=== PATIENT | female | born 1935 | race Caucasian/White ===

== ENCOUNTER → 2017-01-07 | Outpatient (CLI) | payer OTHER, BC ==
[2017-01-07 18:16] LABS: URINE APPEARANCE CLEAR (CLEAR); URINE BILIRUBIN NEG (NEG); URINE COLOR YELLOW; URINE EPITHELIAL CELL AUTO 0-5 /lpf (0-5); URINE NITRITE NEG (NEG); URINE PH 5.5 (4.5-7.5); URINE SPECIFIC GRAVITY 1.014 (1.000-1.030); UROBILINOGEN NEG (NEG)
[2017-01-07 18:18] LABS: MANUAL MICROSCOPIC REQUIRED? NO; REVIEW REQ? NO
== END | disposition home or self-care (01) ==
LOC: C.LABMFLN 16:20
PROVIDERS: ATTEND Family Medicine
DX: R30.0 Dysuria (principal)

== ENCOUNTER → 2017-07-11 | Outpatient (CLI) | payer OTHER, BC ==
[2017-07-11 17:58] LABS: HEMATOCRIT 32.1 % (37-47); HEMOGLOBIN 10.2 g/dL (12.0-16.0); MEAN CELL VOLUME 102.6 fL (80-100); MEAN CORPUSCULAR HEMOGLOBIN 32.6 pg (25-34); MEAN CORPUSCULAR HGB CONC 31.8 g/dl (32-36); MEAN PLATELET VOLUME 10.4 fL (7.4-10.4); PLATELET COUNT 211 K/uL (130-400); RED CELL DISTRIBUTION WIDTH CV 17.9 % (11.5-14.5); RED CELL DISTRIBUTION WIDTH SD 67.8 fL (36.4-46.3); WHITE BLOOD COUNT 4.52 K/uL (4.8-10.8)
[2017-07-11 18:25] LABS: ALBUMIN 3.6 gm/dl (3.4-5.0); ALT/SGPT 41 U/L (12-78); BLOOD UREA NITROGEN 54 mg/dl (7-18); CALCIUM 9.8 mg/dl (8.5-10.1); CARBON DIOXIDE 33 mmol/L (21-32); CHOLESTEROL 148 mg/dl (0-200); CREATININE 1.99 mg/dl (0.60-1.20); GLUCOSE 121 mg/dl (70-99); POTASSIUM 4.1 mmol/L (3.5-5.1); SODIUM 139 mmol/L (136-145)
[2017-07-11 18:34] LABS: ALKALINE PHOSPHATASE 213 U/L (45-117); AST/SGOT 54 U/L (15-37); LDL CHOLESTEROL (DIRECT) 70 mg/dl; TOTAL PROTEIN 8.3 gm/dl (6.4-8.2); TRANSFERRIN 269 mg/dl (200-360)
== END | disposition home or self-care (01) ==
LOC: C.LABMFLN 17:00
PROVIDERS: ATTEND Family Medicine
DX: E11.49 Type 2 diabetes mellitus with other diabetic neurological complication (principal); E11.65 Type 2 diabetes mellitus with hyperglycemia; E03.9 Hypothyroidism, unspecified; D64.9 Anemia, unspecified; F32.9 Major depressive disorder, single episode, unspecified; E78.00 Pure hypercholesterolemia, unspecified

== ENCOUNTER → 2017-07-19 | Outpatient (CLI) | payer OTHER, BC ==
[2017-07-21 18:29] LABS: FECAL OCCULT BLOOD #1 NEGATIVE (NEGATIVE); FECAL OCCULT BLOOD #2 NEGATIVE (NEGATIVE); FECAL OCCULT BLOOD #3 NEGATIVE (NEGATIVE)
== END | disposition home or self-care (01) ==
LOC: C.LABSPEC 18:20
PROVIDERS: ATTEND Family Medicine
DX: D64.9 Anemia, unspecified (principal)

== ENCOUNTER → 2017-08-01 | Outpatient (CLI) | payer OTHER, BC | END | disposition home or self-care (01) | LOC: C.LABMFLN 16:26 | PROVIDERS: ATTEND Family Medicine | DX: I12.9 Hypertensive chronic kidney disease with stage 1 through stage 4 chronic kidney disease, or unspecified chronic kidney disease (principal); N18.4 Chronic kidney disease, stage 4 (severe) ==

== ENCOUNTER → 2017-08-13 | Outpatient (CLI) | payer OTHER, BC | END | disposition home or self-care (01) | LOC: C.LABMFLN 18:17 | PROVIDERS: ATTEND Family Medicine | DX: N39.0 Urinary tract infection, site not specified (principal) ==

== ENCOUNTER → 2017-08-15 | Outpatient (CLI) | payer OTHER, BC | END | disposition home or self-care (01) | LOC: C.LABMFLN 10:42 | PROVIDERS: ATTEND Family Medicine | DX: N39.0 Urinary tract infection, site not specified (principal) ==

== ENCOUNTER → 2018-01-22 | Outpatient (CLI) | payer OTHER, BC ==
[2018-01-22 17:45] LABS: HEMATOCRIT 28.7 % (37-47); HEMOGLOBIN 8.8 g/dL (12.0-16.0); MEAN CELL VOLUME 103.6 fL (80-100); MEAN CORPUSCULAR HEMOGLOBIN 31.8 pg (25-34); MEAN CORPUSCULAR HGB CONC 30.7 g/dl (32-36); MEAN PLATELET VOLUME 10.4 fL (7.4-10.4); PLATELET COUNT 173 K/uL (130-400); RED CELL DISTRIBUTION WIDTH CV 17.9 % (11.5-14.5); RED CELL DISTRIBUTION WIDTH SD 68.1 fL (36.4-46.3); WHITE BLOOD COUNT 5.45 K/uL (4.8-10.8)
[2018-01-22 18:11] LABS: BLOOD UREA NITROGEN 69 mg/dl (7-18); CARBON DIOXIDE 36 mmol/L (21-32); CHOLESTEROL 140 mg/dl (0-200); CREATININE 2.26 mg/dl (0.60-1.20); GLUCOSE 136 mg/dl (70-99); LDL CHOLESTEROL CALCULATED 60 mg/dl; PHOSPHORUS 3.9 mg/dl (2.5-4.9); POTASSIUM 4.1 mmol/L (3.5-5.1); SODIUM 138 mmol/L (136-145); TRANSFERRIN 253 mg/dl (200-360)
[2018-01-23 05:45] LABS: HEMOGLOBIN A1C 5.9 % (4.5-5.6)
== END | disposition home or self-care (01) ==
LOC: C.LABMFLN 11:13
PROVIDERS: ATTEND Family Medicine
DX: D64.9 Anemia, unspecified (principal); E11.49 Type 2 diabetes mellitus with other diabetic neurological complication; N18.4 Chronic kidney disease, stage 4 (severe); I12.9 Hypertensive chronic kidney disease with stage 1 through stage 4 chronic kidney disease, or unspecified chronic kidney disease

== ENCOUNTER 2019-04-03 22:19 | Inpatient (IN) ==
[2019-04-03] MEDS ORDERED: VANCOMYCIN HCL 1,500 MG in SODIUM CHLORIDE 0.9% 500 ML IV STA (22:37)
[2019-04-03] MEDS ORDERED: LORazepam 0.5 MG/1 ML VIAL IV PRN (22:37)
[2019-04-03] MEDS ORDERED: VANCOMYCIN CONSULT ACTIVE PRN (22:37)
[2019-04-03] MEDS ORDERED: SODIUM CHLORIDE 0.9% 1000ML 1,000 ML IV ONE (22:37)
[2019-04-03] MEDS ORDERED: CEFEPIME 2,000 MG/20 ML VIAL IV STA (22:37)
[2019-04-03 23:24] LABS: INR 1.1 (0.9-1.1); Partial Thromboplastin Ratio 1.1; Partial Thromboplastin Time 29.1 Seconds (21.0-31.0); Prothrombin Time 11.2 Seconds (9.0-12.0)
[2019-04-03 23:33] LABS: Albumin Globulin Ratio 0.7 (0.9-2); Albumin Level 3.9 gm/dl (3.4-5.0); BUN Creatinine Ratio 38.9 (10-20); Bilirubin,Total 0.6 mg/dl (0.2-1); Calcium 10.2 mg/dl (8.5-10.1); Creatinine Clr Calc Pharmacy 15.5 ml/min; Est GFR (African American) 20.9; Globulin 5.4 gm/dl (2.5-4.0); Potassium 5.4 mmol/L (3.5-5.1); Total Protein 9.3 gm/dl (6.4-8.2)
[2019-04-03 23:34] LABS: Hematocrit (blood only) 35.1 % (37-47); Mean Corpuscular Hemoglobin 32.3 pg (25-34); Mean Corpuscular Hgb Conc 31.3 g/dL (32-36); Mean Corpuscular Volume 102.9 fL (80-100); Mean Platelet Volume 11.7 fL (7.4-10.4); Platelet Count 96 K/uL (130-400); RDW Coefficient of Variation 17.3 % (11.5-14.5); RDW Standard Deviation 65.5 fL (36.4-46.3); Red Blood Count 3.41 M/uL (4.2-5.4); White Blood Count 6.61 K/uL (4.8-10.8)
[2019-04-03 23:36] LABS: Eosinophils # (auto) 0.16 K/uL (0-0.5); Eosinophils % (auto) 2.4 %; Immature Granulocytes # (auto) 0.02 K/uL (0.00-0.02); Immature Granulocytes % (auto) 0.3 %; Lymphocytes # (auto) 0.72 K/uL (1.2-3.4); Lymphocytes % (auto) 10.9 %; Monocytes # (auto) 0.37 K/uL (0.11-0.59); Monocytes % (auto) 5.6 %; Neutrophils # (auto) 5.34 K/uL (1.4-6.5); Neutrophils % (auto) 80.8 %; Platelet Estimate Decreased (Normal)
[2019-04-04] MEDS ORDERED: SODIUM CHLORIDE 0.9% 1000ML 1,000 ML IV ONE (00:05)
[2019-04-04 00:35] LABS: Appearance Urine Clear (Clear); Bacteria Urine Automated Negative (Negative); Bilirubin Urine Negative (Negative); Blood Urine Trace (Negative); Color Urine Dark Yellow; Epithelial Cell Urine Auto >30 /lpf (0-5); Glucose Urine UA Negative (Negative); Ketones Urine Negative (Negative); Leukocyte Esterase Urine Negative (Negative); Nitrite Urine Negative (Negative); Specific Gravity Urine 1.017 (1.000-1.030); Urobilinogen Urine Negative (Negative)
[2019-04-04 00:46] LABS: Protein Urine Negative (Negative); Sulfosalicylic Acid Urine Negative (Negative)
--- NOTE | 2019-04-04 00:48 | Emergency Department Note ---
Entered by Christina Puente acting as a scribe for Denzel Cardenas MD History of Present Illness General Chief complaint: Altered Mental Status Stated complaint: CONFUSED Time Seen by Provider: 04/03/19 22:26 Source: patient and family (daughter) History of Present Illness Onset (ago): day(s) 1 Location: abdomen Pain Consistency: + constant Associated symptoms: + denies other symptoms, + confusion, + weakness and + other (abdominal pain); no chest pain and no shortness of breath Treatments prior to arrival: other (UTI antibiotics) The patient is a 83 year old female who presents to the Emergency Room with complaints of altered mental status. The patient was diagnosed with a UTI 3 days ago. She was prescribed antibiotics for the infection and has been taking them. She complains of generalized weakness and abdominal pain, along with increased confusion. The patient denies chest pain and shortness of breath. The patients daughter reports that her mother has a wound on her left foot. She has been going once a week to the wound clinic. The patient lives with her daughter, who cares for her. Home Medications Home Medications Medication Instructions Recorded Confirmed Type acetaminophen 325 mg tablet 650 mg PO Q4H PRN #100 tab 01/22/19 04/03/19 Rx bisacodyl 5 mg tablet,delayed 5 mg PO DAILY PRN #30 tab 01/22/19 04/03/19 Rx release jmeiyfen-yvffoflt-xzok 8 mg-folic 1 tab PO DAILY #30 tab 01/22/19 04/03/19 Rx ac 400 mcg-vit K 10 mcg chew tablet nitroglycerin 0.4 mg sublingual 0.4 mg SL Q5M PRN #25 tab 01/22/19 04/03/19 Rx tablet polyethylene glycol 3350 17 gram 17 gm PO .COMPLEX #30 ea 01/22/19 04/03/19 Rx oral powder packet sennosides 8.6 mg-docusate sodium 2 tab PO BID PRN #120 tab 01/22/19 04/03/19 Rx 50 mg tablet cholecalciferol (vitamin D3) 5,000 5,000 units PO DAILY #30 cap 01/27/19 04/03/19 Rx unit capsule albuterol sulfate HFA 90 2 puffs INH Q4H PRN #18 gm 01/28/19 04/03/19 Rx mcg/actuation aerosol inhaler gabapentin 100 mg capsule 100 mg PO DAILY #30 cap 01/28/19 04/03/19 Rx atorvastatin 20 mg tablet 20 mg PO QPM #90 tab 02/01/19 04/03/19 Rx ipratropium-albuterol 0.5 mg-3 3 ml INH Q6H PRN #180 ml 02/01/19 04/03/19 Rx mg(2.5 mg base)/3 mL nebulization soln levothyroxine 100 mcg tablet 100 mcg PO DAILY #90 tab 02/01/19 04/03/19 Rx scopolamine 1 mg over 3 days 1 patch TD Q72H PRN #10 ea MDD 1 02/12/19 04/03/19 Rx transdermal patch ropinirole 0.25 mg tablet 0.25 mg PO TID #270 tab 02/23/19 04/03/19 Rx carbidopa 25 mg-levodopa 100 mg 1 tab PO TID tab 03/25/19 04/03/19 History tablet ranitidine 150 mg tablet 150 mg PO DAILY 03/25/19 04/03/19 History nitrofurantoin 100 mg PO BID #14 cap 04/01/19 04/03/19 Rx monohydrate/macrocrystals 100 mg capsule ondansetron 4 mg disintegrating 4 mg PO Q8H PRN #30 tab 04/01/19 04/03/19 Rx tablet Lactobacillus rhamnosus GG 1 cap PO DAILY 04/03/19 04/03/19 History [Culturelle] torsemide [Demadex] 20 mg PO DAILY 04/03/19 04/03/19 History Allergies Allergy/AdvReac Type Severity Reaction Status Date / Time esomeprazole Allergy Unknown Verified 04/03/19 23:09 sulfamethoxazole Allergy Unknown Verified 04/03/19 23:09 [From Bactrim] trimethoprim [From Bactrim] Allergy Unknown Verified 04/03/19 23:09 Past Med/Surg History Medical History Anemia (Chronic) Benign essential hypertension (Chronic) Cardiomyopathy, nonischemic (Acute) Chronic kidney disease (CKD) stage G4/A1, severely decreased glomerular filtration rate (GFR) between 15-29 mL/min/1.73 square meter and albuminuria creatinine ratio less than 30 mg/g (Chronic) Depression (Chronic) Diabetes mellitus with neurological manifestations, uncontrolled (Chronic) Diabetic retinopathy, nonproliferative (Chronic) Dysphagia (Acute) 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) High globulin level (Chronic) Hypercholesterolemia (Chronic) Hypotension (Acute) Recurrent UTI (Acute) Stage 4 chronic kidney disease due to hypertension (Chronic) Venous insufficiency (Acute) Diabetic ulcer of left heel associated with type 2 diabetes mellitus, with fat layer exposed (Acute) Traumatic wound (Resolved) Stage III pressure ulcer of left heel (Acute) CKD (chronic kidney disease) (Chronic) Hypertension, benign (Chronic) ASCVD (arteriosclerotic cardiovascular disease) (Acute) Aspiration pneumonitis (Acute) Atrioventricular block, Mobitz type 1, Wenckebach (Acute) CKD (chronic kidney disease) (Acute) DM II (diabetes mellitus, type II), controlled (Acute) Decubitus ulcer of heel, stage 3 (Acute) Diabetes mellitus with diabetic polyneuropathy (Acute) Encounter for diagnostic colonoscopy due to change in bowel habits (Acute) GERD (gastroesophageal reflux disease) (Acute) HTN (hypertension) (Acute) Hypothyroidism (Acute) Hypoxemia (Acute) Morbid obesity (Acute) Neuropathic ulcer of left heel (Acute) Non-rheumatic tricuspid valve insufficiency (Acute) Pacemaker (Acute) Pleural effusion associated with pulmonary infection (Acute) Pulmonary artery hypertension (Acute) Right-sided heart failure (Acute) Sleep apnea (Acute) Supranuclear palsies, progressive (Acute) Surgical History History of cholecystectomy (Acute) History of total abdominal hysterectomy and bilateral salpingo-oophorectomy (Acute) Hx of appendectomy (Acute) S/P CABG x 4 (Acute) Social History Preferred Language: Bruneian Communication Ability: Impaired Communication Tools: Picture Board Visual Impairment: Limited Hearing Ability: Normal Driver Material Handler Required: No Beliefs That Will Affect Care: Taoist marital status: / Current Living Situation: Family Current Living Situation Comment: lives with daughter current occupational status: retired Other Information That Helps Us Care for You: No Feels Safe at Home: Yes Safety Concerns: Feels Safe At This Time Smoking Status: Never smoker Do You Dip or Chew Tobacco: No ; Second Hand Exposure: Yes ; Hx Alcohol Use: No Hx Substance Use: No Childhood Exposure to Second-Hand Smoke: Yes caffeine: No during the past year weight has: decreased > 10 lbs Dental Care, Regularly: Yes Physical Activity Frequency: Daily Sunscreen Use: Yes Do you think of yourself as: straight/heterosexual Sexual Activity: has been sexually active, but not for at least 12 months Review of Systems See HPI for pertinent positives & negatives. and A total of 10 systems reviewed and were otherwise negative Physical Exam Vital Signs Vital Signs - 24 hr 04/03/19 22:20 04/03/19 22:23 04/03/19 22:28 Temperature 34.1 C L 34.1 C L Temperature Source Rectal Rectal Rectal Temperature - Source 2 Sepsis Recent Fever Within 48 Hours No Sepsis Action Taken by Nursing No Action Required Pulse Rate 76 Pulse Rate from SpO2 Sensor Respiratory Rate 18 Respiratory Effort / Characteristics Non-Labored Spontaneous Respiratory Depth Normal Respiratory Pattern Regular Blood Pressure 112/76 Blood Pressure Mean 88 Blood Pressure Position Lying Pulse Oximetry 92 92 Oxygen Delivery Method Room Air Room Air Oxygen Flow Rate 04/03/19 23:00 04/03/19 23:12 04/03/19 23:15 Temperature Temperature Source Rectal Temperature - Source 2 34.2 C L 34.3 C L Sepsis Recent Fever Within 48 Hours Sepsis Action Taken by Nursing Pulse Rate 69 65 Pulse Rate from SpO2 Sensor 69 65 Respiratory Rate 15 14 Respiratory Effort / Characteristics Respiratory Depth Respiratory Pattern Blood Pressure 106/62 96/53 L Blood Pressure Mean 76 67 Blood Pressure Position Pulse Oximetry 84 L 95 Oxygen Delivery Method Nasal Cannula Oxygen Flow Rate 2 04/03/19 23:30 04/03/19 23:45 04/04/19 00:00 Temperature Temperature Source Rectal Temperature - Source 2 34.3 C L 34.3 C L 34.3 C L Sepsis Recent Fever Within 48 Hours Sepsis Action Taken by Nursing Pulse Rate 62 63 74 Pulse Rate from SpO2 Sensor 64 62 73 Respiratory Rate 15 14 12 Respiratory Effort / Characteristics Respiratory Depth Respiratory Pattern Blood Pressure 99/52 L 105/59 L Blood Pressure Mean 67 74 Blood Pressure Position Pulse Oximetry 98 98 96 Oxygen Delivery Method Oxygen Flow Rate 04/04/19 00:15 04/04/19 00:30 04/04/19 00:45 Temperature Temperature Source Rectal Temperature - Source 2 34.4 C L 34.5 C L 34.6 C L Sepsis Recent Fever Within 48 Hours Sepsis Action Taken by Nursing Pulse Rate 62 70 74 Pulse Rate from SpO2 Sensor 62 66 74 Respiratory Rate 16 17 15 Respiratory Effort / Characteristics Respiratory Depth Respiratory Pattern Blood Pressure 90/54 L 99/45 L 95/50 L Blood Pressure Mean 66 63 65 Blood Pressure Position Pulse Oximetry 99 96 99 Oxygen Delivery Method Oxygen Flow Rate 04/04/19 01:00 04/04/19 01:15 04/04/19 01:30 Temperature Temperature Source Rectal Temperature - Source 2 34.7 C L 34.8 C L 35.0 C L Sepsis Recent Fever Within 48 Hours Sepsis Action Taken by Nursing Pulse Rate 66 65 66 Pulse Rate from SpO2 Sensor 67 64 66 Respiratory Rate 16 13 14 Respiratory Effort / Characteristics Respiratory Depth Respiratory Pattern Blood Pressure 97/49 L 91/62 L 99/52 L Blood Pressure Mean 65 71 67 Blood Pressure Position Pulse Oximetry 91 95 92 Oxygen Delivery Method Oxygen Flow Rate 04/04/19 01:45 04/04/19 02:00 04/04/19 02:15 Temperature Temperature Source Rectal Temperature - Source 2 35.1 C L 35.2 C L 35.4 C L Sepsis Recent Fever Within 48 Hours Sepsis Action Taken by Nursing Pulse Rate 72 74 76 Pulse Rate from SpO2 Sensor 68 69 75 Respiratory Rate 20 15 26 H Respiratory Effort / Characteristics Respiratory Depth Respiratory Pattern Blood Pressure 95/50 L 100/59 L 99/56 L Blood Pressure Mean 65 72 70 Blood Pressure Position Pulse Oximetry 91 95 96 Oxygen Delivery Method Oxygen Flow Rate GENERAL: Wearing glasses, in mild distress, non-toxic. EYE EXAM: Normal conjunctiva. PERRL, no anisocoria and EOM's grossly intact w/o pain. OROPHARYNX: Moist mucous membranes. Grossly normal dentition. NECK: Supple, no nuchal rigidity, no adenopathy, non-tender. No signs of meningismus. LUNGS: Clear to auscultation. Normal chest wall mechanics. HEART: NSR, no MRG. ABDOMEN: Abdomen soft, non-tender, normo-active bowel sounds, no masses, no rebound or guarding. BACK: No CVA TTP. SKIN: No rashes and no bruising. UPPER EXTREMITIES: Upper extremities are grossly normal. LOWER EXTREMITIES: Left lower extremity in wound boot. Has a healing heel ulcer, escar noted w/o fluctuance, not draining, no erythema. No pitting edema. No calf pain. NEURO EXAM: When calm, she answers questions appropriately, moves all 4 extremities, and is awake and alert. Course 2230: Past medical records reviewed. The patient was evaluated in room B01. A complete history and physical exam was performed. 225: I rechecked on the patient. Her lactate was at 2.9. 2329: I rechecked on the patient and updated the daughter on her condition. 0010: I spoke to Dr. Velez regarding the patient. He agreed to take over care of the patient and keep her for further evaluation. 0031: I updated the family about the patient. She is DNR. Administered Medications Acetaminophen (Tylenol) 650 mg PO Q4H PRN PRN Reason: Pain or Fever Stop: 05/04/19 03:19 Last Admin: 04/04/19 04:36 Dose: 650 mg Documented by: [id number] Albuterol (Duoneb) 3 ml INH QIDR [facility] Stop: 05/04/19 14:59 Last Admin: 04/04/19 15:18 Dose: 3 ml Documented by: [id number] Carbidopa/Levodopa (Sinemet 25/100 Mg) 1 tab PO TID FELICITA Stop: 05/04/19 08:59 Last Admin: 04/04/19 14:43 Dose: 1 tab Documented by: [id number] Admin: 04/04/19 08:07 Dose: 1 tab Documented by: [id number] Gabapentin (Neurontin) 100 mg PO DAILY FELICITA Stop: 05/04/19 08:59 Last Admin: 04/04/19 08:09 Dose: 100 mg Documented by: [id number] Piperacillin Sod/Tazobactam (Sod 3.375 gm/ Dextrose) 115 mls @ 28.75 mls/hr IV Q12H FELICITA; Protocol Stop: 04/06/19 07:59 Last Infusion: 04/04/19 12:19 Dose: 0 mls/hr Documented by: [id number] Admin: 04/04/19 08:19 Dose: 28.8 mls/hr Documented by: [id number] Lactobacillus Acidophilus (Floranex) 4 tab PO DAILY FELICITA Stop: 05/04/19 08:59 Last Admin: 04/04/19 08:09 Dose: 4 tab Documented by: [id number] Levothyroxine Sodium (Synthroid) 100 mcg PO DAILYBB FELICITA Stop: 05/04/19 06:29 Last Admin: 04/04/19 06:12 Dose: 100 mcg Documented by: [id number] Polyethylene Glycol (Miralax Powder Packet) 17 gm PO DAILY FELICITA Stop: 05/04/19 08:59 Last Admin: 04/04/19 08:10 Dose: 17 gm Documented by: [id number] Ranitidine HCl (Zantac) 150 mg PO DAILY FELICITA Stop: 05/04/19 08:59 Last Admin: 04/04/19 08:08 Dose: 150 mg Documented by: [id number] Ropinirole HCl (Requip) 0.25 mg PO TID FELICITA Stop: 05/04/19 08:59 Last Admin: 04/04/19 14:43 Dose: 0.25 mg Documented by: [id number] Admin: 04/04/19 08:09 Dose: 0.25 mg Documented by: [id number] Discontinued Medications Enoxaparin Sodium (Lovenox) 40 mg SQ Q24H FELICITA Stop: 05/04/19 07:59 Last Admin: 04/04/19 08:08 Dose: 40 mg Documented by: [id number] Lorazepam (Ativan) 0.5 mg in 1 mls @ 1 mls/min IV NOW PRN PRN Reason: Agitation Stop: 05/03/19 22:36 Last Admin: 04/03/19 22:54 Dose: 1 mls/min Documented by: [id number] Cefepime HCl (Maxipime) 2,000 mg in 20 mls @ 5 mls/min IV NOW STA; Protocol Stop: 04/03/19 22:40 Last Admin: 04/03/19 23:15 Dose: 5 mls/min Documented by: [id number] Sodium Chloride (Nss 1000ml) 1,000 mls @ 999 mls/hr IV .Q1H1M ONE Stop: 04/03/19 23:37 Last Infusion: 04/04/19 00:43 Dose: 0 mls/hr Documented by: [id number] Admin: 04/03/19 22:54 Dose: 999 mls/hr Documented by: [id number] Vancomycin HCl 1,500 mg/ (Sodium Chloride) 530 mls @ 200 mls/hr IV NOW STA Stop: 04/04/19 01:15 Last Infusion: 04/04/19 02:11 Dose: 0 mls/hr Documented by: [id number] Admin: 04/03/19 23:38 Dose: 200 mls/hr Documented by: [id number] Sodium Chloride (Nss 1000ml) 1,000 mls @ 999 mls/hr IV .Q1H1M ONE Stop: 04/04/19 01:05 Last Infusion: 04/04/19 01:55 Dose: 0 mls/hr Documented by: [id number] Admin: 04/04/19 00:44 Dose: 999 mls/hr Documented by: [id number] Medical Decision Making Differential Diagnosis Differential diagnosis includes: sepsis, UTI, pneumonia, metabolic, electrolyte abnormalities, cardiac sources, intracerebral event, toxicologic, neurologic, as well as others were entertained. Medical Records Attestation: I reviewed the patient's medical records. The patient has a noted history of anemia, CKD, diabetes, hypertension, hyperlipidemia Home Medications Current Medication List: was personally reviewed by me Laboratory Data Attestation: I reviewed the patient's lab results. Result diagrams: 04/04/19 06:41 04/04/19 06:37 Lab Results 04/03/19 04/03/19 04/03/19 Range/Units 22:30 22:52 23:00 WBC 6.61 (4.8-10.8) K/uL RBC 3.41 L (4.2-5.4) M/uL Hgb 11.0 L (12.0-16.0) g/dL Hct 35.1 L (37-47) % MCV 102.9 H (80-100) fL MCH 32.3 (25-34) pg MCHC 31.3 L (32-36) g/dL RDW Std Deviation 65.5 H (36.4-46.3) fL RDW Coeff of Ean 17.3 H (11.5-14.5) % Plt Count 96 L (130-400) K/uL MPV 11.7 H (7.4-10.4) fL Immature Gran % (Auto) 0.3 % Neut % (Auto) 80.8 % Lymph % (Auto) 10.9 % Arthur % (Auto) 5.6 % Eos % (Auto) 2.4 % Baso % (Auto) 0.0 % Immature Gran # (Auto) 0.02 (0.00-0.02) K/uL Neut # (Auto) 5.34 (1.4-6.5) K/uL Lymph # (Auto) 0.72 L (1.2-3.4) K/uL Arthur # (Auto) 0.37 (0.11-0.59) K/uL Eos # (Auto) 0.16 (0-0.5) K/uL Baso # (Auto) 0.00 (0-0.2) K/uL Platelet Estimate Decreased L (Normal) PT (9.0-12.0) Seconds INR (0.9-1.1) APTT (21.0-31.0) Seconds PTT Ratio Sodium (136-145) mmol/L Potassium (3.5-5.1) mmol/L Chloride (98-107) mmol/L Carbon Dioxide (21-32) mmol/L Anion Gap (3-11) BUN (7-18) mg/dl Creatinine (0.6-1.2) mg/dl Est Cr Clr Drug Dosing ml/min Est GFR ( Amer) Est GFR (Non-Af Amer) BUN/Creatinine Ratio (10-20) Glucose (70-99) mg/dl POC Lactic Acid Jose Rafael 2.95 H (0.90-1.70) mmol/L Lactate (0.4-2.0) mmol/L Calcium (8.5-10.1) mg/dl Total Bilirubin (0.2-1) mg/dl AST (15-37) U/L ALT (12-78) U/L Alkaline Phosphatase (45-117) U/L Total Protein (6.4-8.2) gm/dl Albumin (3.4-5.0) gm/dl Globulin (2.5-4.0) gm/dl Albumin/Globulin Ratio (0.9-2) Procalcitonin (0-0.5) ng/ml TSH (0.300-4.500) uIu/ml Free T4 (0.8-1.6) ng/dl Urine Color Dark Yellow Urine Appearance Clear (Clear) Urine pH 8.0 H (4.5-7.5) Ur Specific [place] 1.017 (1.000-1.030) Urine Protein Negative (Negative) Urine Glucose (UA) Negative (Negative) Urine Ketones Negative (Negative) Urine Blood Trace H (Negative) Urine Nitrite Negative (Negative) Urine Bilirubin Negative (Negative) Urine Urobilinogen Negative (Negative) Ur Leukocyte Esterase Negative (Negative) Urine WBC (Auto) 1-5 (0-5) /hpf Urine RBC (Auto) 5-10 H (0-4) /hpf U Hyaline Cast (Auto) 1-5 (0-5) /lpf U Epithel Cells (Auto) >30 H (0-5) /lpf Urine Bacteria (Auto) Negative (Negative) 04/03/19 04/03/19 04/03/19 Range/Units 23:00 23:00 23:00 WBC (4.8-10.8) K/uL RBC (4.2-5.4) M/uL Hgb (12.0-16.0) g/dL Hct (37-47) % MCV (80-100) fL MCH (25-34) pg MCHC (32-36) g/dL RDW Std Deviation (36.4-46.3) fL RDW Coeff of Ean (11.5-14.5) % Plt Count (130-400) K/uL MPV (7.4-10.4) fL Immature Gran % (Auto) % Neut % (Auto) % Lymph % (Auto) % Arthur % (Auto) % Eos % (Auto) % Baso % (Auto) % Immature Gran # (Auto) (0.00-0.02) K/uL Neut # (Auto) (1.4-6.5) K/uL Lymph # (Auto) (1.2-3.4) K/uL Arthur # (Auto) (0.11-0.59) K/uL Eos # (Auto) (0-0.5) K/uL Baso # (Auto) (0-0.2) K/uL Platelet Estimate (Normal) PT 11.2 (9.0-12.0) Seconds INR 1.1 (0.9-1.1) APTT 29.1 (21.0-31.0) Seconds PTT Ratio 1.1 Sodium 138 (136-145) mmol/L Potassium 5.4 H (3.5-5.1) mmol/L Chloride 100 (98-107) mmol/L Carbon Dioxide 35 H (21-32) mmol/L Anion Gap 4.0 (3-11) BUN 93 H (7-18) mg/dl Creatinine 2.38 H (0.6-1.2) mg/dl Est Cr Clr Drug Dosing 15.5 ml/min Est GFR ( Amer) 20.9 Est GFR (Non-Af Amer) 18.0 BUN/Creatinine Ratio 38.9 H (10-20) Glucose 89 (70-99) mg/dl POC Lactic Acid Jose Rafael (0.90-1.70) mmol/L Lactate (0.4-2.0) mmol/L Calcium 10.2 H (8.5-10.1) mg/dl Total Bilirubin 0.6 (0.2-1) mg/dl AST 246 H (15-37) U/L ALT 48 (12-78) U/L Alkaline Phosphatase 265 H (45-117) U/L Total Protein 9.3 H (6.4-8.2) gm/dl Albumin 3.9 (3.4-5.0) gm/dl Globulin 5.4 H (2.5-4.0) gm/dl Albumin/Globulin Ratio 0.7 L (0.9-2) Procalcitonin 0.08 (0-0.5) ng/ml TSH 6.800 H (0.300-4.500) uIu/ml Free T4 1.25 (0.8-1.6) ng/dl Urine Color Urine Appearance (Clear) Urine pH (4.5-7.5) Ur Specific [place] (1.000-1.030) Urine Protein (Negative) Urine Glucose (UA) (Negative) Urine Ketones (Negative) Urine Blood (Negative) Urine Nitrite (Negative) Urine Bilirubin (Negative) Urine Urobilinogen (Negative) Ur Leukocyte Esterase (Negative) Urine WBC (Auto) (0-5) /hpf Urine RBC (Auto) (0-4) /hpf U Hyaline Cast (Auto) (0-5) /lpf U Epithel Cells (Auto) (0-5) /lpf Urine Bacteria (Auto) (Negative) 04/03/19 Range/Units 23:15 WBC (4.8-10.8) K/uL RBC (4.2-5.4) M/uL Hgb (12.0-16.0) g/dL Hct (37-47) % MCV (80-100) fL MCH (25-34) pg MCHC (32-36) g/dL RDW Std Deviation (36.4-46.3) fL RDW Coeff of Ean (11.5-14.5) % Plt Count (130-400) K/uL MPV (7.4-10.4) fL Immature Gran % (Auto) % Neut % (Auto) % Lymph % (Auto) % Arthur % (Auto) % Eos % (Auto) % Baso % (Auto) % Immature Gran # (Auto) (0.00-0.02) K/uL Neut # (Auto) (1.4-6.5) K/uL Lymph # (Auto) (1.2-3.4) K/uL Arthur # (Auto) (0.11-0.59) K/uL Eos # (Auto) (0-0.5) K/uL Baso # (Auto) (0-0.2) K/uL Platelet Estimate (Normal) PT (9.0-12.0) Seconds INR (0.9-1.1) APTT (21.0-31.0) Seconds PTT Ratio Sodium (136-145) mmol/L Potassium (3.5-5.1) mmol/L Chloride (98-107) mmol/L Carbon Dioxide (21-32) mmol/L Anion Gap (3-11) BUN (7-18) mg/dl Creatinine (0.6-1.2) mg/dl Est Cr Clr Drug Dosing ml/min Est GFR ( Amer) Est GFR (Non-Af Amer) BUN/Creatinine Ratio (10-20) Glucose (70-99) mg/dl POC Lactic Acid Jose Rafael (0.90-1.70) mmol/L Lactate 1.6 (0.4-2.0) mmol/L Calcium (8.5-10.1) mg/dl Total Bilirubin (0.2-1) mg/dl AST (15-37) U/L ALT (12-78) U/L Alkaline Phosphatase (45-117) U/L Total Protein (6.4-8.2) gm/dl Albumin (3.4-5.0) gm/dl Globulin (2.5-4.0) gm/dl Albumin/Globulin Ratio (0.9-2) Procalcitonin (0-0.5) ng/ml TSH (0.300-4.500) uIu/ml Free T4 (0.8-1.6) ng/dl Urine Color Urine Appearance (Clear) Urine pH (4.5-7.5) Ur Specific [place] (1.000-1.030) Urine Protein (Negative) Urine Glucose (UA) (Negative) Urine Ketones (Negative) Urine Blood (Negative) Urine Nitrite (Negative) Urine Bilirubin (Negative) Urine Urobilinogen (Negative) Ur Leukocyte Esterase (Negative) Urine WBC (Auto) (0-5) /hpf Urine RBC (Auto) (0-4) /hpf U Hyaline Cast (Auto) (0-5) /lpf U Epithel Cells (Auto) (0-5) /lpf Urine Bacteria (Auto) (Negative) Imaging Data Attestation: I personally reviewed and interpreted this imaging study as follows: My Impression: 1V Chest X-Ray - Read by me A/P view Indication: Altered mental status Lungs appear to be hyper inflated. Heart is borderline enlarged. Device noted in left chest. Sternotomy wires in place. Haziness noted in right lower lung. Impression: RLL pneumonia ECG Data Attestation: I personally reviewed and interpreted this ECG as follows: Indication: altered mental status Rate (beats per minute): 81 Rhythm: other (AV paced rhythm) Findings: + ST depression and + T-wave inversion MDM Narrative Patient was seen and evaluated the bedside. The patient does have a known history of a recent UTI that was being treated with Macrobid. The patient did present hypothermic. A Morrow catheter was placed. The patient was placed on a bear hugger and the patient did have warmed IV fluids given. Broad-spectrum antibiotics blood and urine cultures as well as lactate were ordered. The patient went calm and does answer questions appropriately. The patient's daughter is at the bedside who is the power of litigation attorney. The patient is DNR. The patient blood work shows a normal white count. Patient does have some chronic but stable anemia. Platelet count is slightly lower compared to prior. No spontaneous bleeding noted. Does have some mild hyperkalemia but does not need to be treated as it as it is below 6 at this time. The patient does have elevated BUN and creatinine CKD 4 which is chronic and stable. Patient did have elevations in AST but is not a drinker. The patient does not have much in terms of abdominal pain with a normal bilirubin and a chronically elevated alk phosphatase. The patient may still have a persistent element of a UTI. I did order a flu which was negative. I also did order TSH and reflex T4 given the patient's history of hypothyroidism and without this could also be contributory to her low temperature. This could also be related to sepsis. I did also check the patient's heel wound which I think is healing well does not appear to be infected. I did speak the on-call hospitalist agreed to further evaluate treat the patient. Patient was admitted to the medicine service. Impression & Plan Altered mental status, CKD (chronic kidney disease), Dehydration, Hypothermia, Pneumonia Critical Care Time Critical Care Time: Yes Total Critical Care Time: 60 I have personally spent greater than 60 minutes of critical care time in direct management of this patient. This includes bedside care, interpretation of diagnostic studies, and testing, discussion with consultants, patient, and family members, and other require inpatient management activities. This 60 minutes is in excess of all separately billable procedures. Discharge Plan Visit Data *Final* Discharge Date/Time: 04/04/19 03:13 Chief Complaint: Altered Mental Status Stated Complaint: CONFUSED ED Provider: Denzel Cardenas Discharge Problem: Altered mental status, CKD (chronic kidney disease), Dehydration, Hypothermia, Pneumonia Patient Disposition: Admitted As Inpatient Discharge Instructions Interventions: ED Discharge Assessment Last Done: 04/04/19 03:13 The scribe's documentation has been prepared under my direction and personally reviewed by me in its entirety. I confirm that the note above accurately reflects all work, treatment, procedures, and medical decision making performed by me.
--- NOTE | 2019-04-04 00:56 | History & Physical Report ---
Date of Service April 04, 2019 Assessment & Plan (1) Altered mental status: This is an 83-year-old female with complex medical history including aspiration, ASCVD, HFrEF, pulmonary arterial hypertension, status post CABG times 09/2001, AV block status post dual-chamber pacemaker 2016, paroxysmal A. fib, stage IV CKD, stable and healing decubitus ulcer of left heel, sleep apnea, [id number] (controlled with diet) with subsequent polyneuropathy, hypertension/hypotension -- who presents with daughter who is her caregiver and medical POA due to worsening altered mental status x1 week. Daughter provides history. Daughter states it began Friday, she says she was unable to initiate movement with her feet, and daughter had to assistant women's soccer coach her to walk normally with her walker. She also began to be more agitated and irritable. Daughter wondered if this was due to a UTI. She was seen by her vascular surgeon's office on Friday, and that provider wondered if she had a UTI. So the daughter took the patient to her PCP where they did a urine dip, and she was started on Macrobid. UA on 04/01 had small leukocyte esterase. Urine culture is growing normal katy. Daughter states patient began to become increasingly more restless and disoriented over today, and because of this gait abnormality was not being able to make it to the bathroom and was therefore incontinent. Apparently the patient complained of some abdominal tenderness 08/02 when the home health nurse examined her earlier today. P.o. intake is slightly decreased today. Patient was constipated earlier this week, and daughter treated this with an enema with good effect, normal brown bowel movements x2 today. Of note patient has not been vomiting, did not endorse to her daughter any chest pain or shortness of breath. She has been coughing more than usual. No kobi history this week of witnessed aspiration. Of note she was seen by her plate sensitizer last week and no medication changes were made. She was also seen by her wound care service last week and no medication changes were made to the decubitus ulcer on her left heel. She was also seen by her PCP last week and routine labs were stable. ED course: vanc, cefepime, ativan, IVF 2L NSS bolus. Assessment: -Acute metabolic encephalopathy/delirium due to unknown etiology - Patient's blood pressure while low is about at her baseline. She is not tachycardic or tachypneic. She is hypothermic temperatures 34.1 Celsius. She is slightly hypoxic 84 on room air and is currently on 2 L nasal cannula. CBC is notable for anemia at her baseline, slightly low platelets 96, normal coags, CHEM profile is remarkable for mild hyperkalemia, baseline elevated creatinine 2.38, lactic acid 2.95 --> 1.6, AST/ALT 246/48, elevated AP 265, albumin is normal. TSH 6.8. Pro-Erwin negative. UA with trace blood but otherwise bland. Chest x-ray with right-sided lower opacities. Blood, urine cultures pending. Urine culture from April 01 is notably negative, normal katy. Patient does have history of ESBL E. coli last May and aspiration pna. -According to the daughter, patient does not have dementia -Patient is obviously delirious, differential remains broad given clinical picture and medical history including pulmonary pneumonia CAP versus aspiration, bacteremia, UTI resistant, CVA versus Parkinson's, or polypharmacy -I have discontinued patient's Macrobid however her gait abnormalities and agitation did precede starting this medication Plan: -Urine culture from 04/01 did not show abnormal katy. -Urine culture, blood cultures pending from today -Broad-spectrum antibiotics to include gram-positive, gram-negative and anaerobic coverage -vancomycin and Zosyn, renally dosed -One-to-one PRN ordered. We will try to avoid further benzodiazepines given delirium. Given cardiac history would recommend IM Haldol if necessary to avoid dysrhythmias. FEN/GI: HH diet pureed, recieved 2L bolus in ED -- recommend to clinically assess in AM if further fluids needed, however pt does have HFrEF and need caution with fluids DVT ppx: lovenox CODE STATUS: DNR/DNI as discussed with pt's POA (daughter) DISPO: med/tele -- pt does live at home with her daughter who is also her careg iver and plan would be to return there upon discharge. Has home health. (2) Dehydration: recieved 2L bolus in ED -- recommend to clinically assess in AM if further fluids needed, however pt does have HFrEF and need caution with fluids (3) Hypothermia: SHELDON hugger in place (4) Anemia: Chronic, is at baseline. (5) Chronic kidney disease (CKD) stage G4/A1, severely decreased glomerular filtration rate (GFR) between 15-29 mL/min/1.73 square meter and albuminuria creatinine ratio less than 30 mg/g: Renally dose all meds Caution against Macrobid in the future (6) Dysphagia: History of such, pured diet ordered nectar liquids. Continue home scopolamine patch for excess secretions. (7) Hypercholesterolemia: Will hold home statin while altered. To resume on discharge. (8) Hypotension: Chronic, did receive 2 L bolus in the ED. Follow. (9) Stage III pressure ulcer of left heel: Is followed by wound care for this. No current concern for exacerbation or infection. Will order wound consult for here. History of Present Illness Chief Complaint: Altered mental status, gait dysfunction, hypoxia, agitation Primary Care Provider: Earnest Meyer MD This is an 83-year-old female with complex medical history including aspiration, ASCVD, HFrEF, pulmonary arterial hypertension, status post CABG times 09/2001, AV block status post dual-chamber pacemaker 2016, paroxysmal A. fib, stage IV CKD, stable and healing decubitus ulcer of left heel, sleep apnea, [id number] (controlled with diet) with subsequent polyneuropathy, hypertension/hypotension -- who presents with daughter who is her caregiver and medical POA due to worsening altered mental status x1 week. Daughter provides history. Daughter states it began Friday, she says she was unable to initiate movement with her feet, and daughter had to assistant women's soccer coach her to walk normally with her walker. She also began to be more agitated and irritable. Daughter wondered if this was due to a UTI. She was seen by her vascular surgeon's office on Friday, and that provider wondered if she had a UTI. So the daughter took the patient to her PCP where they did a urine dip, and she was started on Macrobid. UA on 04/01 had small leukocyte esterase. Urine culture is growing normal katy. Daughter states patient began to become increasingly more restless and disoriented over today, and because of this gait abnormality was not being able to make it to the bathroom and was therefore incontinent. Apparently the patient complained of some abdominal tenderness 08/02 when the home health nurse examined her earlier today. P.o. intake is slightly decreased today. Patient was constipated earlier this week, and daughter treated this with an enema with good effect, normal brown bowel movements x2 today. Of note patient has not been vomiting, did not endorse to her daughter any chest pain or shortness of breath. She has been coughing more than usual. No kobi history this week of witnessed aspiration. Of note she was seen by her plate sensitizer last week and no medication changes were made. She was also seen by her wound care service last week and no medication changes were made to the decubitus ulcer on her left heel. She was also seen by her PCP last week and routine labs were stable. ED course: vanc, cefepime, ativan, IVF 2L NSS bolus. Surgical History: History of cholecystectomy, History of total abdominal hysterectomy and bilateral salpingo-oophorectomy, Hx of appendectomy, S/P CABG x 4 SH: Lives at home with her daughter who is her caregiver and medical POA. No T/E/D. Allergies Allergy/AdvReac Type Severity Reaction Status Date / Time esomeprazole Allergy Unknown Verified 04/03/19 23:09 sulfamethoxazole Allergy Unknown Verified 04/03/19 23:09 [From Bactrim] trimethoprim [From Bactrim] Allergy Unknown Verified 04/03/19 23:09 Home Medications Home Medications Medication Instructions Recorded Confirmed Type acetaminophen 325 mg tablet 650 mg PO Q4H PRN #100 tab 01/22/19 04/03/19 Rx bisacodyl 5 mg tablet,delayed 5 mg PO DAILY PRN #30 tab 01/22/19 04/03/19 Rx release zkjmsjxt-geendvbs-qmki 8 mg-folic 1 tab PO DAILY #30 tab 01/22/19 04/03/19 Rx ac 400 mcg-vit K 10 mcg chew tablet nitroglycerin 0.4 mg sublingual 0.4 mg SL Q5M PRN #25 tab 01/22/19 04/03/19 Rx tablet polyethylene glycol 3350 17 gram 17 gm PO .COMPLEX #30 ea 01/22/19 04/03/19 Rx oral powder packet sennosides 8.6 mg-docusate sodium 2 tab PO BID PRN #120 tab 01/22/19 04/03/19 Rx 50 mg tablet cholecalciferol (vitamin D3) 5,000 5,000 units PO DAILY #30 cap 01/27/19 04/03/19 Rx unit capsule albuterol sulfate HFA 90 2 puffs INH Q4H PRN #18 gm 01/28/19 04/03/19 Rx mcg/actuation aerosol inhaler gabapentin 100 mg capsule 100 mg PO DAILY #30 cap 01/28/19 04/03/19 Rx atorvastatin 20 mg tablet 20 mg PO QPM #90 tab 02/01/19 04/03/19 Rx ipratropium-albuterol 0.5 mg-3 3 ml INH Q6H PRN #180 ml 02/01/19 04/03/19 Rx mg(2.5 mg base)/3 mL nebulization soln levothyroxine 100 mcg tablet 100 mcg PO DAILY #90 tab 02/01/19 04/03/19 Rx scopolamine 1 mg over 3 days 1 patch TD Q72H PRN #10 ea MDD 1 02/12/19 04/03/19 Rx transdermal patch ropinirole 0.25 mg tablet 0.25 mg PO TID #270 tab 02/23/19 04/03/19 Rx carbidopa 25 mg-levodopa 100 mg 1 tab PO TID tab 03/25/19 04/03/19 History tablet ranitidine 150 mg tablet 150 mg PO DAILY 03/25/19 04/03/19 History nitrofurantoin 100 mg PO BID #14 cap 04/01/19 04/03/19 Rx monohydrate/macrocrystals 100 mg capsule ondansetron 4 mg disintegrating 4 mg PO Q8H PRN #30 tab 04/01/19 04/03/19 Rx tablet Lactobacillus rhamnosus GG 1 cap PO DAILY 04/03/19 04/03/19 History [Culturelle] torsemide [Demadex] 20 mg PO DAILY 04/03/19 04/03/19 History Past Med/Surg History Medical History Anemia (Chronic) Benign essential hypertension (Chronic) Cardiomyopathy, nonischemic (Acute) Chronic kidney disease (CKD) stage G4/A1, severely decreased glomerular filtration rate (GFR) between 15-29 mL/min/1.73 square meter and albuminuria creatinine ratio less than 30 mg/g (Chronic) Depression (Chronic) Diabetes mellitus with neurological manifestations, uncontrolled (Chronic) Diabetic retinopathy, nonproliferative (Chronic) Dysphagia (Acute) 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) High globulin level (Chronic) Hypercholesterolemia (Chronic) Hypotension (Acute) Recurrent UTI (Acute) Stage 4 chronic kidney disease due to hypertension (Chronic) Venous insufficiency (Acute) Diabetic ulcer of left heel associated with type 2 diabetes mellitus, with fat layer exposed (Acute) Traumatic wound (Resolved) Stage III pressure ulcer of left heel (Acute) CKD (chronic kidney disease) (Chronic) Hypertension, benign (Chronic) ASCVD (arteriosclerotic cardiovascular disease) (Acute) Aspiration pneumonitis (Acute) Atrioventricular block, Mobitz type 1, Wenckebach (Acute) CKD (chronic kidney disease) (Acute) DM II (diabetes mellitus, type II), controlled (Acute) Decubitus ulcer of heel, stage 3 (Acute) Diabetes mellitus with diabetic polyneuropathy (Acute) Encounter for diagnostic colonoscopy due to change in bowel habits (Acute) GERD (gastroesophageal reflux disease) (Acute) HTN (hypertension) (Acute) Hypothyroidism (Acute) Hypoxemia (Acute) Morbid obesity (Acute) Neuropathic ulcer of left heel (Acute) Non-rheumatic tricuspid valve insufficiency (Acute) Pacemaker (Acute) Pleural effusion associated with pulmonary infection (Acute) Pulmonary artery hypertension (Acute) Right-sided heart failure (Acute) Sleep apnea (Acute) Supranuclear palsies, progressive (Acute) Surgical History History of cholecystectomy (Acute) History of total abdominal hysterectomy and bilateral salpingo-oophorectomy (Acute) Hx of appendectomy (Acute) S/P CABG x 4 (Acute) Social History Preferred Language: Divehi Communication Ability: Effective Communication Tools: Picture Board Visual Impairment: Limited Hearing Ability: Normal Sequins Stringer Required: No Beliefs That Will Affect Care: Restorationist marital status: / Current Living Situation: Family Current Living Situation Comment: lives with daughter current occupational status: retired Other Information That Helps Us Care for You: No Feels Safe at Home: Yes Safety Concerns: Feels Safe At This Time Smoking Status: Never smoker Do You Dip or Chew Tobacco: No ; Second Hand Exposure: Yes ; Hx Alcohol Use: No Hx Substance Use: No Childhood Exposure to Second-Hand Smoke: Yes caffeine: No during the past year weight has: decreased > 10 lbs Dental Care, Regularly: Yes Physical Activity Frequency: Daily Sunscreen Use: Yes Do you think of yourself as: straight/heterosexual Sexual Activity: has been sexually active, but not for at least 12 months Review of Systems Review of Systems: Unobtainable due to cognitive status Physical Exam Physical Exam: Vitals noted and within normal limits with the exception of hypotension 95/50, is at her baseline. Hypothermia. GENERAL: Somnolent, nontoxic-appearing, in no distress. SHELDON hugger in place. HENT: Normocephalic, atraumatic. Nasal cannula in place. Mucus membranes appear dry. NECK: Supple. Full range of motion. No JVD. RESPIRATORY: Clear to auscultation. Normal work of breathing. CARDIAC: Regular rate, normal rhythm. Extremities warm and well perfused, ABDOMEN: Soft, non-distended. No tenderness to palpation in all four quadrants. Bowel sounds are normal. LOWER EXTREMITIES: Inspection of calves reveal equal size bilaterally. No edema. Senile purpura discoloration. Wound on left heel is covered by bandage. NEURO: Somnolent. SKIN: Wound on left heel is covered by bandage. No jaundice noted PSYCH: Somnolent. Daughter is at bedside. Exam as done by Stephanie Dunham MD, Drill Sharpener. Results & Data Vital Signs (Past 12 Hours) Vital Signs Temp Pulse Resp BP Pulse Ox 04/04/19 00:30 70 17 99/45 L 96 04/04/19 00:15 62 16 90/54 L 99 04/04/19 00:00 74 12 96 04/03/19 23:45 63 14 105/59 L 98 04/03/19 23:30 62 15 99/52 L 98 04/03/19 23:15 65 14 96/53 L 95 04/03/19 23:00 69 15 106/62 84 L 04/03/19 22:28 34.1 C L 04/03/19 22:23 34.1 C L 76 18 112/76 92 04/03/19 22:20 92 Laboratory Results 04/03/19 04/03/19 04/03/19 Range/Units 23:15 23:00 23:00 WBC (4.8-10.8) K/uL RBC (4.2-5.4) M/uL Hgb (12.0-16.0) g/dL Hct (37-47) % MCV (80-100) fL MCH (25-34) pg MCHC (32-36) g/dL RDW Std Deviation (36.4-46.3) fL RDW Coeff of Ean (11.5-14.5) % Plt Count (130-400) K/uL MPV (7.4-10.4) fL Immature Gran % (Auto) % Neut % (Auto) % Lymph % (Auto) % Scurry % (Auto) % Eos % (Auto) % Baso % (Auto) % Immature Gran # (Auto) (0.00-0.02) K/uL Neut # (Auto) (1.4-6.5) K/uL Lymph # (Auto) (1.2-3.4) K/uL Scurry # (Auto) (0.11-0.59) K/uL Eos # (Auto) (0-0.5) K/uL Baso # (Auto) (0-0.2) K/uL Platelet Estimate (Normal) PT (9.0-12.0) Seconds INR (0.9-1.1) APTT (21.0-31.0) Seconds PTT Ratio Sodium 138 (136-145) mmol/L Potassium 5.4 H (3.5-5.1) mmol/L Chloride 100 (98-107) mmol/L Carbon Dioxide 35 H (21-32) mmol/L Anion Gap 4.0 (3-11) BUN 93 H (7-18) mg/dl Creatinine 2.38 H (0.6-1.2) mg/dl Est Cr Clr Drug Dosing 15.5 ml/min Est GFR ( Amer) 20.9 Est GFR (Non-Af Amer) 18.0 BUN/Creatinine Ratio 38.9 H (10-20) Glucose 89 (70-99) mg/dl POC Lactic Acid Jose Rafael (0.90-1.70) mmol/L Lactate 1.6 (0.4-2.0) mmol/L Calcium 10.2 H (8.5-10.1) mg/dl Total Bilirubin 0.6 (0.2-1) mg/dl AST 246 H (15-37) U/L ALT 48 (12-78) U/L Alkaline Phosphatase 265 H (45-117) U/L Total Protein 9.3 H (6.4-8.2) gm/dl Albumin 3.9 (3.4-5.0) gm/dl Globulin 5.4 H (2.5-4.0) gm/dl Albumin/Globulin Ratio 0.7 L (0.9-2) Procalcitonin 0.08 (0-0.5) ng/ml TSH 6.800 H (0.300-4.500) uIu/ml Free T4 1.25 (0.8-1.6) ng/dl Urine Color Urine Appearance (Clear) Urine pH (4.5-7.5) Ur Specific Lincoln (1.000-1.030) Urine Protein (Negative) Urine Glucose (UA) (Negative) Urine Ketones (Negative) Urine Blood (Negative) Urine Nitrite (Negative) Urine Bilirubin (Negative) Urine Urobilinogen (Negative) Ur Leukocyte Esterase (Negative) Urine WBC (Auto) (0-5) /hpf Urine RBC (Auto) (0-4) /hpf U Hyaline Cast (Auto) (0-5) /lpf U Epithel Cells (Auto) (0-5) /lpf Urine Bacteria (Auto) (Negative) 04/03/19 04/03/19 04/03/19 Range/Units 23:00 23:00 22:52 WBC 6.61 (4.8-10.8) K/uL RBC 3.41 L (4.2-5.4) M/uL Hgb 11.0 L (12.0-16.0) g/dL Hct 35.1 L (37-47) % MCV 102.9 H (80-100) fL MCH 32.3 (25-34) pg MCHC 31.3 L (32-36) g/dL RDW Std Deviation 65.5 H (36.4-46.3) fL RDW Coeff of Ean 17.3 H (11.5-14.5) % Plt Count 96 L (130-400) K/uL MPV 11.7 H (7.4-10.4) fL Immature Gran % (Auto) 0.3 % Neut % (Auto) 80.8 % Lymph % (Auto) 10.9 % Scurry % (Auto) 5.6 % Eos % (Auto) 2.4 % Baso % (Auto) 0.0 % Immature Gran # (Auto) 0.02 (0.00-0.02) K/uL Neut # (Auto) 5.34 (1.4-6.5) K/uL Lymph # (Auto) 0.72 L (1.2-3.4) K/uL Scurry # (Auto) 0.37 (0.11-0.59) K/uL Eos # (Auto) 0.16 (0-0.5) K/uL Baso # (Auto) 0.00 (0-0.2) K/uL Platelet Estimate Decreased L (Normal) PT 11.2 (9.0-12.0) Seconds INR 1.1 (0.9-1.1) APTT 29.1 (21.0-31.0) Seconds PTT Ratio 1.1 Sodium (136-145) mmol/L Potassium (3.5-5.1) mmol/L Chloride (98-107) mmol/L Carbon Dioxide (21-32) mmol/L Anion Gap (3-11) BUN (7-18) mg/dl Creatinine (0.6-1.2) mg/dl Est Cr Clr Drug Dosing ml/min Est GFR ( Amer) Est GFR (Non-Af Amer) BUN/Creatinine Ratio (10-20) Glucose (70-99) mg/dl POC Lactic Acid Jose Rafael 2.95 H (0.90-1.70) mmol/L Lactate (0.4-2.0) mmol/L Calcium (8.5-10.1) mg/dl Total Bilirubin (0.2-1) mg/dl AST (15-37) U/L ALT (12-78) U/L Alkaline Phosphatase (45-117) U/L Total Protein (6.4-8.2) gm/dl Albumin (3.4-5.0) gm/dl Globulin (2.5-4.0) gm/dl Albumin/Globulin Ratio (0.9-2) Procalcitonin (0-0.5) ng/ml TSH (0.300-4.500) uIu/ml Free T4 (0.8-1.6) ng/dl Urine Color Urine Appearance (Clear) Urine pH (4.5-7.5) Ur Specific Lincoln (1.000-1.030) Urine Protein (Negative) Urine Glucose (UA) (Negative) Urine Ketones (Negative) Urine Blood (Negative) Urine Nitrite (Negative) Urine Bilirubin (Negative) Urine Urobilinogen (Negative) Ur Leukocyte Esterase (Negative) Urine WBC (Auto) (0-5) /hpf Urine RBC (Auto) (0-4) /hpf U Hyaline Cast (Auto) (0-5) /lpf U Epithel Cells (Auto) (0-5) /lpf Urine Bacteria (Auto) (Negative) 04/03/19 Range/Units 22:30 WBC (4.8-10.8) K/uL RBC (4.2-5.4) M/uL Hgb (12.0-16.0) g/dL Hct (37-47) % MCV (80-100) fL MCH (25-34) pg MCHC (32-36) g/dL RDW Std Deviation (36.4-46.3) fL RDW Coeff of Ean (11.5-14.5) % Plt Count (130-400) K/uL MPV (7.4-10.4) fL Immature Gran % (Auto) % Neut % (Auto) % Lymph % (Auto) % Scurry % (Auto) % Eos % (Auto) % Baso % (Auto) % Immature Gran # (Auto) (0.00-0.02) K/uL Neut # (Auto) (1.4-6.5) K/uL Lymph # (Auto) (1.2-3.4) K/uL Scurry # (Auto) (0.11-0.59) K/uL Eos # (Auto) (0-0.5) K/uL Baso # (Auto) (0-0.2) K/uL Platelet Estimate (Normal) PT (9.0-12.0) Seconds INR (0.9-1.1) APTT (21.0-31.0) Seconds PTT Ratio Sodium (136-145) mmol/L Potassium (3.5-5.1) mmol/L Chloride (98-107) mmol/L Carbon Dioxide (21-32) mmol/L Anion Gap (3-11) BUN (7-18) mg/dl Creatinine (0.6-1.2) mg/dl Est Cr Clr Drug Dosing ml/min Est GFR ( Amer) Est GFR (Non-Af Amer) BUN/Creatinine Ratio (10-20) Glucose (70-99) mg/dl POC Lactic Acid Jose Rafael (0.90-1.70) mmol/L Lactate (0.4-2.0) mmol/L Calcium (8.5-10.1) mg/dl Total Bilirubin (0.2-1) mg/dl AST (15-37) U/L ALT (12-78) U/L Alkaline Phosphatase (45-117) U/L Total Protein (6.4-8.2) gm/dl Albumin (3.4-5.0) gm/dl Globulin (2.5-4.0) gm/dl Albumin/Globulin Ratio (0.9-2) Procalcitonin (0-0.5) ng/ml TSH (0.300-4.500) uIu/ml Free T4 (0.8-1.6) ng/dl Urine Color Dark Yellow Urine Appearance Clear (Clear) Urine pH 8.0 H (4.5-7.5) Ur Specific Lincoln 1.017 (1.000-1.030) Urine Protein Negative (Negative) Urine Glucose (UA) Negative (Negative) Urine Ketones Negative (Negative) Urine Blood Trace H (Negative) Urine Nitrite Negative (Negative) Urine Bilirubin Negative (Negative) Urine Urobilinogen Negative (Negative) Ur Leukocyte Esterase Negative (Negative) Urine WBC (Auto) 1-5 (0-5) /hpf Urine RBC (Auto) 5-10 H (0-4) /hpf U Hyaline Cast (Auto) 1-5 (0-5) /lpf U Epithel Cells (Auto) >30 H (0-5) /lpf Urine Bacteria (Auto) Negative (Negative) Supervising Physician Co-Signing Physician Notes Patient was seen and examined by me personally. I reviewed the chart, the orders and discussed the case in detail with Dr. Stephanie Dunham MD . I read th is H&P and agree with its contents to entirety. PG Care Time/CCT Total # of Minutes Spent Total Time Spent with Patient: Total time spent is greater than 50% in coordination of care (as documented) at patient's floor/unit and/or counseling patient: Resident Activity Tracking Resident Involvement: Resident Care Provided Care Provided: Adult Hospital Medicine (1) Hypothermia Encounter type: initial encounter Qualified Code(s): T68.XXXA - Hypothermia, initial encounter (2) Altered mental status Altered mental status type: unspecified Qualified Code(s): R41.82 - Altered mental status, unspecified
[2019-04-04 01:05] LABS: Thyroid Stimulating Hormone 6.8 uIu/ml (0.300-4.500)
[2019-04-04 01:20] LABS: T4 Free Thyroxine 1.25 ng/dl (0.8-1.6)
[2019-04-04] MEDS ORDERED: PIPERACILL/TAZOBAC CONSULT ACTIVE PRN (03:20)
[2019-04-04] MEDS ORDERED: ALBUTEROL HFA 8 GM INHALER INH PRN (03:20)
[2019-04-04] MEDS ORDERED: DOCUSATE SODIUM/SENNA 50/8.6MG TAB PO PRN (03:20)
[2019-04-04] MEDS ORDERED: ACETAMINOPHEN 325 MG TAB PO PRN (03:20)
[2019-04-04] MEDS ORDERED: SCOPOLAMINE 1.5 MG TDSY TD PRN (03:20)
[2019-04-04] MEDS ORDERED: BISACODYL 5 MG TABEC PO PRN (03:20)
[2019-04-04] MEDS ORDERED: ALBUT/IPRATROP 3MG/0.5MG NEB 3 ML VIAL INH PRN (03:20)
[2019-04-04] MEDS ORDERED: ONDANSETRON INJ 2 MG/ML 2 ML VIAL IV PRN (03:20)
[2019-04-04] MEDS ORDERED: INFLUENZA VACCINE HIGH DOSE 65+ 0.5 ML SYR IM ONE (04:15)
[2019-04-04] MEDS ORDERED: INFLUENZA ADMINISTRATION CHARGE ONE (04:15)
[2019-04-04] MEDS: LEVOTHYROXINE SODIUM 100 MCG TABLET PO SCH (06:12)
--- NOTE | 2019-04-04 06:24 | XRay Report ---
XR chest 1V portable CLINICAL HISTORY: Sepsis COMPARISON STUDY: No previous studies for comparison. FINDINGS: The heart is enlarged. There are postsurgical changes of a midline sternotomy. There is a l eft subclavian dual-chamber central venous pacemaker present. The patient is hyperinflated. Old right -sided rib fractures are visualized. There are basilar opacities likely atelectatic although an infla mmatory process could appear similar. A trace subpulmonic right pleural effusion is suspected[. There is mild vascular prominence without evidence of overt failure IMPRESSION: 1. Mild cardiomegaly 2. Suspected trace right subpulmonic pleural effusion 3. Basilar opacities likely atelectatic although an inflammatory process could appear similar. Clinic al and radiographic follow-up is recommended 3. 1 cm right basilar opacity likely representing a summation. This should be reevaluated on subseque nt x-rays. Electronically signed by: Mode Garza M.D. 04/04/2019 6:22 AM
[2019-04-04 07:23] LABS: BUN Creatinine Ratio 40.8 (10-20); Calcium 8.9 mg/dl (8.5-10.1); Creatinine Clr Calc Pharmacy 17.5 ml/min; Est GFR (Non-African American) 20.7; Potassium 5.4 mmol/L (3.5-5.1)
[2019-04-04] MEDS ORDERED: ENOXAPARIN INJ 40 MG/0.4 ML SYR SQ SCH (08:00)
[2019-04-04] MEDS: CARBIDOPA/LEVODOPA 25/100MG TAB PO SCH ×3 (08:07→20:55)
[2019-04-04] MEDS: LACTOBACILLUS ACIDOPHILUS (FLORANEX) TAB PO SCH (08:09)
[2019-04-04] MEDS: GABAPENTIN 100 MG CAP PO SCH (08:09)
[2019-04-04] MEDS: ROPINIROLE HCL 0.25 MG TABLET PO SCH ×3 (08:09→20:55)
[2019-04-04] MEDS: POLYETHYLENE (MIRALAX) 17 GM PACK PO SCH (08:10)
[2019-04-04] MEDS: PIPERACILLIN/TAZOBACTAM 3.375 GM in DEXTROSE 5% 100 ML IV SCH ×2 (08:19→19:44)
[2019-04-04] MEDS ORDERED: TORSEMIDE 10 MG TAB PO SCH (09:00)
[2019-04-04 10:48] LABS: Hematocrit (blood only) 28.4 % (37-47); Hemoglobin 8.7 g/dL (12.0-16.0); Mean Corpuscular Hemoglobin 31.6 pg (25-34); Mean Corpuscular Hgb Conc 30.6 g/dL (32-36); Mean Corpuscular Volume 103.3 fL (80-100); RDW Coefficient of Variation 17.6 % (11.5-14.5); Red Blood Count 2.75 M/uL (4.2-5.4); White Blood Count 5.19 K/uL (4.8-10.8)
[2019-04-04 10:49] LABS: Mean Platelet Volume 11.4 fL (7.4-10.4); Platelet Count 75 K/uL (130-400)
[2019-04-04 11:15] LABS: Eosinophils # (auto) 0.17 K/uL (0-0.5); Eosinophils % (auto) 3.3 %; Immature Granulocytes # (auto) 0.01 K/uL (0.00-0.02); Immature Granulocytes % (auto) 0.2 %; Lymphocytes # (auto) 0.47 K/uL (1.2-3.4); Lymphocytes % (auto) 9.1 %; Monocytes # (auto) 0.34 K/uL (0.11-0.59); Monocytes % (auto) 6.6 %; Neutrophils % (auto) 80.8 %
--- NOTE | 2019-04-04 14:38 | Hospitalist Progress Note ---
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 fib, stage IV CKD, severe PAD, chronic ulcer of left heel, sleep apnea, [id number] (controlled with diet) with subsequent polyneuropathy, hypertension/hypotension -- who presents with daughter who is her caregiver and medical POA due to worsening altered mental status x1 week and generalized weakness. -Acute metabolic encephalopathy due to unknown etiology - Patient's blood pressure while low is about at her baseline. She is not tachycardic or tachypneic. She was hypothermic on admission at 34.1 C which improved with dm hugger She is slightly hypoxic 84 on room air and is currently on 2-3 L nasal cannula. CBC is notable for anemia and thrombocytopenia With normal coags, CHEM profile is remarkable for mild hyperkalemia, baseline elevated creatinine 2.38, lactic acid 2.95 --> 1.6, AST/ALT 246/48, elevated AP 265, and no abdominal pain or tenderness on exam TSH 6.8. Pro-Erwin negative. UA with trace blood but otherwise bland and Ur cx from recent office visit is with mixed katy-not likely she has a UTI. Chest x-ray with bibasilar opacities, does have cough and mild hypoxia--> could be recurrent aspiration PNA Also has left heel ulcer which previously grew out MRSA but does not appear infected at this time ESR>90 but also could be high in context of CKD, but could be consistent with osteomyelitis or endocarditis, other infectious process Also currently quite drowsy because she received ativan in the ER last night when she was excessively worrying about dying as per daughter -check xray left foot for OM -continue to treat with Zosyn and Vanco for broad coverage for both PNA as well as OM -follow BCxs -follow clinically (2) Dehydration: received 2L bolus in ED, however pt does have HFrEF and need caution with fluids -has been holding her torsemide and HCTZ at home the last 3 days anyway as per instruction from PCP -restart torsemide if develops volume overload Object Oriented Programmer back to baseline (3) Hypothermia: DM hugger used and now resolved, could be related to acute illness (4) Stage III pressure ulcer of left heel: Is followed by wound care for this. Has known severe PAD but too high risk for surgery given comorbidities as per [facility] Vascular notes in chart -awaiting second opinion from Dr. Sánchez -continue WOund Care -checking xray for OM as above But overall does not clearly seem infected (5) Anemia: Chronic,and had a drop from admission down to 8.7--> likely some hemodilutional effect No signs of bleeding -follow CBC in AM -check B12, folate, iron studies, hemoccult (6) Chronic kidney disease (CKD) stage G4/A1, severely decreased glomerular filtration rate (GFR) between 15-29 mL/min/1.73 square meter and albuminuria creatinine ratio less than 30 mg/g: Object Oriented Programmer around baseline today -Renally dose all meds -avoid nephrotoxins -follow BMP -sees Nephrology at [facility] -watch K+ and give Kayexolate or restart torsemide if goes higher (7) Dysphagia: History of such, pured diet ordered nectar liquids. -uses scopolamine patch for excess secretions but ON HOLD here due to encephalopathy (8) Hypercholesterolemia: Will hold home statin with elevated LFTs (9) Hypotension: Chronic, did receive 2 L bolus in the ED. -holding home diuretics (10) PAD (peripheral artery disease): severe, bilat LEs as above -holding statin -is not on antiplatelet but would not start now given thrombocytopenia (11) Thrombocytopenia: plt count dropping, could be secondary to acute infectious process Down to 76k today from 96 on admission. Baseline normal -follow CBC -peripheral smear (12) Pneumonia: SUspected aspiration PNA as above -treating with abx -add Duonebs (13) Hypertension, benign: holding home diuretics for hypotension (14) Acute hypoxemic respiratory failure: secondary to aspiration? 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 -is on gabapentin, Sinemet, ropinirole and scopolamine patch for excessive secretions (18) CAD (coronary artery disease), [place] coronary artery: has h/o CABG 2001 -not on ASA or beta uday but no ASA for now as above and BP too low for BB -continue statin (19) Diabetes mellitus: accuchecks HgbA1C 6.3%, diet controlled (20) DVT prophylaxis: DVT ppx: lovenox but hold if plts<50k CODE STATUS: DNR but would want intubation for purely respiratory issue if expected to be temporary as discussed with pt's POA (daughter) DISPO: med/tele -- pt does live at home with her daughter who is also her caregiver and plan would be to return there upon discharge. Has home health. Subjective Pt still drowsy all day but daughter does report she is waking up to eat and drink. Pt denies chest pain or abd pain, no joint pains. Still with generalized weakness and some confusion which is why daughter brought her in last night. No fevers at home, was hypothermic on admission which is now improved. Some cough and daughter reports pt sounds like she has a lot of secretions. She has a h/o Pseudobulbar palsy and aspiration, follows with Neurology at [facility] Never had any UTI symptoms. She is followed by Wound Care for a chronic left heel wound but daughter reports the heel wound is actually improving somewhat. Has severe PAD that Vascular Surgery at [facility] was hesitant to fix due to being high risk for anesthesia Tele with NSR, paced rhythm in the 60s Review of Systems Review of Systems: All systems reviewed & are unremarkable except as noted in HPI & below (no bleeding from anywhere) Physical Exam Constitutional: + ill appearing and average body habitus; no acute distress Eyes: PERRL, conjunctivae normal, anicteric sclerae ENMT: external ear and nose normal, oropharynx normal Neck: trachea midline, no thyromegaly Respiratory: normal respiratory effort and + cough Auscultation: + crackles (at bases and up to mid lung pagan bilat); no rhonchi and no wheezes Cardiovascular: RRR, no murmur, no edema Gastrointestinal (Abdomen): normal bowel sounds, soft, nontender, no hepatosplenomegaly Musculoskeletal: Extremities: extremities normal to inspection; no cyanosis and no clubbing Skin: + wound (left heel with 1 cm crusted over wound no erythema or drai nage) Neurologic: moves all extremities, awake (but lethargic) and + confused; no focal motor deficits Speech / Cognition: + abnormal speech (low volume) Motor/Sensory: no tremor Cranial Nerves: EOM intact bilaterally Results & Data Vital Signs (Past 12 Hours) Vital Signs Temp Pulse Pulse Resp BP BP Pulse Ox 04/04/19 11:25 36.3 C L 65 18 95/52 L 95 04/04/19 07:05 36.3 C L 61 18 93/56 L 96 04/04/19 05:11 70 04/04/19 03:20 36.6 C 19 103/60 90 04/04/19 03:15 36.6 C 70 19 103/60 90 04/04/19 02:45 67 21 Pulse Ox 04/04/19 11:25 04/04/19 07:05 04/04/19 05:11 04/04/19 03:20 04/04/19 03:15 90 04/04/19 02:45 Laboratory Results labs reviewed PG Care Time/CCT Total # of Minutes Spent Total Time Spent with Patient: Total time spent is greater than 50% in coordination of care (as documented) at patient's floor/unit and/or counseling patient: (1) Hypothermia Encounter type: initial encounter Qualified Code(s): T68.XXXA - Hypothermia, initial encounter (2) Altered mental status Altered mental status type: unspecified Qualified Code(s): R41.82 - Altered mental status, unspecified (3) Pneumonia Laterality: right Lung location: lower lobe of lung Pneumonia type: due to unspecified organism Qualified Code(s): J18.1 - Lobar pneumonia, unspecified organism
--- NOTE | 2019-04-04 15:04 | Pharmacy Report ---
Pharmacy Abx Initial Consult - Date of Service April 04, 2019 - Pharmacy Dosing Scope Date of Consult: 04/04/19 Consultation requested by: Dr. Cuellar Pharmacy is consulted to initiate vancomycin and Zosyn IV dosing therapy, order appropriate labs and adjust drug dose/frequency. - Subjective The patient is a 83 year old F admitted on 04/04/19 02:21. - Objective Height: 5 ft 5 in Weight: 63.5 kg Vital Signs (Past 12hrs): Vital Signs Temp Pulse Pulse Resp BP BP Pulse Ox 04/04/19 11:25 36.3 C L 65 18 95/52 L 95 04/04/19 07:05 36.3 C L 61 18 93/56 L 96 04/04/19 05:11 70 04/04/19 03:20 36.6 C 19 103/60 90 04/04/19 03:15 36.6 C 70 19 103/60 90 Pulse Ox 04/04/19 11:25 04/04/19 07:05 04/04/19 05:11 04/04/19 03:20 04/04/19 03:15 90 Lab Results (24hrs): Laboratory Tests (24 Hours) 04/04/19 04/04/19 04/03/19 06:41 06:37 23:00 WBC 5.19 Neut # (Auto) 4.20 Creatinine 2.12 H Est Cr Clr Drug Dosing 17.5 Procalcitonin 0.08 04/03/19 04/03/19 23:00 23:00 WBC 6.61 Neut # (Auto) 5.34 Creatinine 2.38 H Est Cr Clr Drug Dosing 15.5 Procalcitonin Micro Results: 04/03/19 23:00 Aerobic Blood Culture - Pending Blood Anaerobic Blood Culture - Pending 04/03/19 23:15 Aerobic Blood Culture - Pending Blood Anaerobic Blood Culture - Pending 04/03/19 22:30 Urine Culture - Pending Urine,Straight Cath - Risk Factors for Resistance * 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 Patient presented to [facility] on 04/03 with altered mental status (increased restlessness, disorientation, and gait abnormalities noted). Broad spectrum antibiotics were initiated for possible infection/bacteremia (unknown source - possibilities include UTI, pneumonia, osteomyelitis). Of note: patient does have a decubitus ulcer of left heel (culture from 02/04/19 grew MRSA). X-ray of foot ordered. Pertinent labs: SCr 2.12 mg/dL (baseline appears to be around 2 mg/dL), WBC: 6,600 Microbiology: Blood x 2 (04/03): pending Urine (04/03): pending Urine (04/01): probable skin katy MRSA nasal swab: negative Plan Vancomycin IV * Estimated PK Parameters: Vd 0.7 L/kg, Leonard 0.019 hr-1, t1/2 36 hr * Loading dose: 1500 mg (23 mg/kg) administered at 2338 on 04/03 * Goal trough level for this patient will be 15 to 20 mcg/mL until source of infection identified * Due to prolonged half-life estimate - Will obtain random level tomorrow morning (approximately 28 hours after initial dose) and will reassess dosing at that time Piperacillin/tazobactam * 3.375 g IV extended infusion every 12 hours for CrCl 20 mL/min or less and dialysis. Pharmacy will continue to follow and will adjust dose/frequency as necessary. Thank you.
[2019-04-04] MEDS: ALBUT/IPRATROP 3MG/0.5MG NEB 3 ML VIAL INH SCH ×2 (15:18→19:09)
[2019-04-04 15:34] LABS: Bilirubin Direct 0.2 mg/dl (0-0.2); Bilirubin,Total 0.6 mg/dl (0.2-1); Total Protein 7.3 gm/dl (6.4-8.2)
--- NOTE | 2019-04-04 16:07 | XRay Report ---
XR foot LT min 3V routine CLINICAL HISTORY: Left heel ulcer COMPARISON: February 04, 2019 DISCUSSION: There is bony demineralization. There are no acute fractures. There is prominent calcanea l spurring. There is a soft tissue ulcer over the posterior calcaneus. There are no bony destructive changes to indicate acute osteomyelitis. IMPRESSION: 1. Calcaneal soft tissue ulcer 2. Calcaneal spurring 3. No conventional radiographic evidence of acute osteomyelitis Electronically signed by: Mode Garza M.D. 04/04/2019 4:06 PM
[2019-04-05] MEDS: LEVOTHYROXINE SODIUM 100 MCG TABLET PO SCH (06:08)
[2019-04-05 07:02] LABS: Hematocrit (blood only) 31.5 % (37-47); Hemoglobin 9.8 g/dL (12.0-16.0); Mean Corpuscular Hemoglobin 32.1 pg (25-34); Mean Corpuscular Hgb Conc 31.1 g/dL (32-36); Mean Corpuscular Volume 103.3 fL (80-100); RDW Coefficient of Variation 17.7 % (11.5-14.5); RDW Standard Deviation 67.1 fL (36.4-46.3); Red Blood Count 3.05 M/uL (4.2-5.4); White Blood Count 10.92 K/uL (4.8-10.8)
[2019-04-05 07:04] LABS: Mean Platelet Volume 11.2 fL (7.4-10.4); Platelet Count 65 K/uL (130-400)
[2019-04-05] MEDS: ALBUT/IPRATROP 3MG/0.5MG NEB 3 ML VIAL INH SCH ×4 (07:14→19:15)
[2019-04-05 07:27] LABS: Albumin Level 2.8 gm/dl (3.4-5.0); BUN Creatinine Ratio 34.3 (10-20); Calcium 9.1 mg/dl (8.5-10.1); Eosinophils # (auto) 0.16 K/uL (0-0.5); Eosinophils % (auto) 1.5 %; Est GFR (African American) 21.5; Est GFR (Non-African American) 18.6; Immature Granulocytes # (auto) 0.02 K/uL (0.00-0.02); Immature Granulocytes % (auto) 0.2 %; Lymphocytes # (auto) 0.48 K/uL (1.2-3.4); Lymphocytes % (auto) 4.4 %; Monocytes % (auto) 3.7 %; Neutrophils # (auto) 9.86 K/uL (1.4-6.5); Neutrophils % (auto) 90.2 %; Potassium 5.1 mmol/L (3.5-5.1)
[2019-04-05 07:30] LABS: Bilirubin Direct 0.2 mg/dl (0-0.2); Bilirubin,Total 0.7 mg/dl (0.2-1); Ferritin 599.9 ng/ml (8-388); Total Protein 7.8 gm/dl (6.4-8.2)
[2019-04-05] MEDS: PIPERACILLIN/TAZOBACTAM 3.375 GM in DEXTROSE 5% 100 ML IV SCH ×2 (08:05→19:59)
[2019-04-05] MEDS: ENOXAPARIN INJ 30 MG/0.3 ML SYR SQ SCH (08:05)
[2019-04-05] MEDS: LACTOBACILLUS ACIDOPHILUS (FLORANEX) TAB PO SCH (08:06)
[2019-04-05] MEDS: ROPINIROLE HCL 0.25 MG TABLET PO SCH ×3 (08:07→19:59)
[2019-04-05] MEDS: CARBIDOPA/LEVODOPA 25/100MG TAB PO SCH ×3 (08:07→19:59)
[2019-04-05] MEDS: GABAPENTIN 100 MG CAP PO SCH (08:08)
[2019-04-05] MEDS: POLYETHYLENE (MIRALAX) 17 GM PACK PO SCH (08:08)
[2019-04-05 08:26] LABS: Folate (Folic Acid) 15.46 ng/ml (>5.38); Vitamin B12 > 2000 pg/ml (211-911)
[2019-04-05] MEDS ORDERED: VANCOMYCIN HCL 1,000 MG in SODIUM CHLORIDE 0.9% 250 ML IV ONE (09:00)
--- NOTE | 2019-04-05 09:00 | Pharmacy Report ---
Pharmacy Abx Dose Short Note - Date of Service April 05, 2019 - Assessment & Plan Assessment 04/05 Day # 2/2 of vancomycin and Zosyn for empiric treatment as noted below. Foot X- ray shows no evidence of osteo. All cultures negative to date. SCr has bumped slightly (2.12 -> 2.32) so will need to be cautious with vancomycin dosing. Will plan to provide another one time dose today and f/u tomorrow if vancomycin will be continued. Estimated t1/2 between 30-36 hours based upon level and current renal function. Microbiology 04/03/19 23:15 Blood Anaerobic Blood Culture - Final 04/03/19 23:15 Blood Aerobic Blood Culture - Preliminary 04/03/19 23:15 Blood No growth in Aerobic bottle after 24 hours. 04/03/19 23:00 Blood Aerobic Blood Culture - Preliminary 04/03/19 23:00 Blood Anaerobic Blood Culture - Preliminary No growth in Aerobic bottle after 24 hours. No growth in Anaerobic bottle after 24 hours. 04/04 83 year old F receiving empiric vancomycin and Zosyn. Patient presented to [facility] on 04/03 with altered mental status (increased restlessness, disorientation, and gait abnormalities noted). Broad spectrum antibiotics were initiated for possible infection/bacteremia (unknown source - possibilities include UTI, pneumonia, osteomyelitis). Of note: patient does have a decubitus ulcer of left heel (culture from 02/04/19 grew MRSA). X-ray of foot ordered. Pertinent labs: SCr 2.12 mg/dL (baseline appears to be around 2 mg/dL), WBC: 6,600 Microbiology: Blood x 2 (04/03): pending Urine (04/03): pending Urine (04/01): probable skin katy MRSA nasal swab: negative Plan Vancomycin * Random level of 12.9 mcg/mL is subtherapeutic * Re-dose with single dose of vancomycin 1 gm (~15.7 mg/kg) * Goal trough level for empiric therapy : 15 to 20 mcg/mL * Will plan to recheck random level tomorrow afternoon if vancomycin therapy to be continued Zosyn * Continue 3.375 gm extended infusion q12h for CrCl < 20 mL/min * This will need extended if to be continued > 48 hours Pharmacy will continue to follow and will adjust dose/frequency as necessary. Thank you.
--- NOTE | 2019-04-05 21:50 | Hospitalist Progress Note ---
Date of Service April 05, 2019 Assessment & Plan (1) Altered mental status: Acute metabolic encephalopathy due to unknown etiology. - Likely causes are UTI vs. aspiration pneumonia/pneumonitis vs. viral. UTI is possible despite negative UA given she was on prior abx. Aspiration pneumonia/p neumonitis is also possible given the trouble with pills recently. - Continue Zosyn - COMPONENT INSPECTOR for possible aspiration evaluation - Daughter reports a video swallow done at [place] about 1 month ago - Hold vanc - Viral also possible, though lower likelihood. (2) Thrombocytopenia: plt count dropping, could be secondary to acute infectious process Down to 76k today from 96 on admission. Baseline normal -follow CBC -peripheral smear (3) Stage III pressure ulcer of left heel: Is followed by wound care for this. Has known severe PAD but too high risk for surgery given comorbidities as per [facility] Vascular notes in chart. X-rays did not show any evidence of osteomyelitis. - Continue wound care - Wound RN consult (4) Anemia: Chronic,and had a drop from admission down to 8.7--> likely some hemodilutional effect. No signs of bleeding. Iron labs indicate chronic disease. B12/folate normal on 04/05. - Follow CBC (5) Chronic kidney disease (CKD) stage G4/A1, severely decreased glomerular filtration rate (GFR) between 15-29 mL/min/1.73 square meter and albuminuria creatinine ratio less than 30 mg/g: Cr baseline is ~2.0-2.5. - Renally dose all meds - Avoid nephrotoxins - Follow BMP (6) Dysphagia: History of such, pured diet ordered nectar liquids. -uses scopolamine patch for excess secretions but ON HOLD here due to encephalopathy (7) PAD (peripheral artery disease): Severe, bilat LEs. - As above - Holding statin - Is not on antiplatelet but would not start now given thrombocytopenia (8) Hypertension, benign: Holding home diuretics for hypotension. (9) Pseudobulbar palsy: Sees Neuro at [facility] for this. - Is on gabapentin, Sinemet, ropinirole, and scopolamine patch for excessive secretions. (10) CAD (coronary artery disease), [place] coronary artery: Has h/o CABG 2001. - Not on ASA or beta uday but no ASA for now as above and BP too low for BB - As above (11) Diabetes mellitus: HgbA1C 6.3%, diet controlled. - Sliding scale insulin (12) DVT prophylaxis: Lovenox but hold if plts<50k. CODE STATUS: DNR but would want intubation for purely respiratory issue if expected to be temporary as discussed with pt's ODELL (daughter) Subjective Is actually feeling considerably better today. AAOx3, denies any acute issues. Physical Exam Constitutional: WD/WN, vitals as above Eyes: EOM intact bilaterally; no conjunctival abnormality ENMT: external ear and nose normal, oropharynx normal Neck: trachea midline, no thyromegaly normal visual inspection Respiratory: normal respiratory effort, lungs clear to auscultation no respiratory distress Cardiovascular: RRR, no murmur, no edema Gastrointestinal (Abdomen): Inspection/Auscultation: abdomen normal to inspection; abdomen not distended Musculoskeletal: no cyanosis or clubbing, extremities motor strength 5/5 Skin: no rashes, warm and dry Neurologic: moves all extremities and awake Psychiatric: Orientation: alert, oriented to person and cooperative Results & Data Vital Signs (Past 12 Hours) Vital Signs Temp Pulse Pulse Resp BP Pulse Ox 04/05/19 19:30 66 18 106/60 91 04/05/19 19:16 65 16 95 04/05/19 17:28 70 04/05/19 15:58 35.6 C L 65 20 100/59 L 99 04/05/19 15:27 76 18 98 04/05/19 10:57 63 18 97 04/05/19 10:05 34.8 C L PG Care Time/CCT Total # of Minutes Spent Total Time Spent with Patient: Total time spent is greater than 50% in coordination of care (as documented) at patient's floor/unit and/or counseling patient: (1) Altered mental status Altered mental status type: unspecified Qualified Code(s): R41.82 - Altered mental status, unspecified
[2019-04-06] MEDS: LEVOTHYROXINE SODIUM 100 MCG TABLET PO SCH (06:03)
[2019-04-06] MEDS: ALBUT/IPRATROP 3MG/0.5MG NEB 3 ML VIAL INH SCH ×4 (07:24→19:18)
[2019-04-06 07:33] LABS: Creatinine Clr Calc Pharmacy 16.8 ml/min; Est GFR (African American) 22.9; Est GFR (Non-African American) 19.8
[2019-04-06] MEDS: CARBIDOPA/LEVODOPA 25/100MG TAB PO SCH ×3 (08:24→20:25)
[2019-04-06] MEDS: LACTOBACILLUS ACIDOPHILUS (FLORANEX) TAB PO SCH (08:25)
[2019-04-06] MEDS: GABAPENTIN 100 MG CAP PO SCH (08:25)
[2019-04-06] MEDS: ROPINIROLE HCL 0.25 MG TABLET PO SCH ×3 (08:25→20:24)
[2019-04-06] MEDS: POLYETHYLENE (MIRALAX) 17 GM PACK PO SCH (08:25)
[2019-04-06] MEDS: ENOXAPARIN INJ 30 MG/0.3 ML SYR SQ SCH (08:32)
[2019-04-06] MEDS: PIPERACILLIN/TAZOBACTAM 3.375 GM in DEXTROSE 5% 100 ML IV SCH ×2 (08:37→20:25)
--- NOTE | 2019-04-06 17:34 | Hospitalist Progress Note ---
Date of Service April 06, 2019 Assessment & Plan (1) Altered mental status: Acute metabolic encephalopathy due to unknown etiology. - Likely causes are UTI vs. aspiration pneumonia/pneumonitis vs. viral. UTI is possible despite negative UA given she was on prior abx. Aspiration pneumonia/p neumonitis is also possible given the trouble with pills recently. - Continue Zosyn - MANAGER OPERATIONAL for possible aspiration evaluation - Daughter reports a video swallow done at [place] about 1 month ago. - Discussed with speech today. Choked on thin liquids, but did well otherwise. Adjusted diet accordingly. - Urine cx grew Diphtheroids - Will not be speciated, so unclear if this is causative agent of confusion or not. Will likely switch to Augmentin to finish course of abx. (2) Thrombocytopenia: Plt count dropping, could be secondary to acute infectious process. Down to 65k on 04/05 from 96 on admission. Baseline normal. - Follow CBC - Peripheral smear showed no abnormal morphology. (3) Stage III pressure ulcer of left heel: Is followed by wound care for this. Has known severe PAD but too high risk for surgery given comorbidities as per [facility] vascular notes in chart. X-rays did not show any evidence of osteomyelitis. - Continue wound care - Wound RN consulted - Continued conservative care. (4) Anemia: Chronic,and had a drop from admission down to 8.7--> likely some hemodilutional effect. No signs of bleeding. Iron labs indicate chronic disease. B12/folate normal on 04/05. - Follow CBC (5) Chronic kidney disease (CKD) stage G4/A1, severely decreased glomerular filtration rate (GFR) between 15-29 mL/min/1.73 square meter and albuminuria creatinine ratio less than 30 mg/g: Cr baseline is ~2.0-2.5. - Renally dose all meds - Avoid nephrotoxins - Follow BMP - Stable today. (6) Dysphagia: History of such, pured diet ordered nectar liquids. - Uses scopolamine patch for excess secretions but not on at present. (7) PAD (peripheral artery disease): Severe, bilat LEs. - As above - Holding statin - Is not on antiplatelet but would not start now given thrombocytopenia (8) Hypertension, benign: Holding home diuretics for lower BP. (9) Pseudobulbar palsy: Sees neuro at [place] for this. - Is on gabapentin, Sinemet, ropinirole, and scopolamine patch for excessive secretions. (10) CAD (coronary artery disease), [place] coronary artery: Has h/o CABG 2001. - Not on ASA or beta uday but no ASA for now as above and BP too low for BB - As above (11) Diabetes mellitus: HgbA1C 6.3%, diet controlled. - Sliding scale insulin (12) DVT prophylaxis: Lovenox but hold if plts<50k. CODE STATUS: DNR but would want intubation for purely respiratory issue if expected to be temporary as discussed with pt's POA (daughter). Subjective Doing well today apart from a pill being stuck in her throat. Reports no fevers/chills, chest pain, shortness of breath, abdominal pain, nausea, or vomiting. Physical Exam Constitutional: WD/WN, vitals as above Eyes: EOM intact bilaterally; no conjunctival abnormality ENMT: external ear and nose normal, oropharynx normal Neck: trachea midline, no thyromegaly normal visual inspection Respiratory: normal respiratory effort, lungs clear to auscultation no respiratory distress Cardiovascular: RRR, no murmur, no edema Gastrointestinal (Abdomen): Inspection/Auscultation: abdomen normal to inspection; abdomen not distended Musculoskeletal: no cyanosis or clubbing, extremities motor strength 5/5 Skin: no rashes, warm and dry Neurologic: moves all extremities and awake Psychiatric: Orientation: alert, oriented to person and cooperative Results & Data Vital Signs (Past 12 Hours) Vital Signs Temp Pulse Pulse Resp BP Pulse Ox 04/06/19 15:40 36.6 C 68 16 98/59 L 92 04/06/19 15:24 68 20 92 04/06/19 15:00 84 04/06/19 11:53 36.2 C L 68 16 112/64 100 04/06/19 11:24 68 16 100 04/06/19 08:20 67 04/06/19 07:26 68 12 97 04/06/19 07:11 36.3 C L 72 16 119/76 99 PG Care Time/CCT Total # of Minutes Spent Total Time Spent with Patient: Total time spent is greater than 50% in coordination of care (as documented) at patient's floor/unit and/or counseling patient: (1) Altered mental status Altered mental status type: unspecified Qualified Code(s): R41.82 - Altered mental status, unspecified
[2019-04-07] MEDS: LEVOTHYROXINE SODIUM 100 MCG TABLET PO SCH (06:16)
[2019-04-07] MEDS: ALBUT/IPRATROP 3MG/0.5MG NEB 3 ML VIAL INH SCH ×2 (07:06→10:59)
[2019-04-07 07:25] LABS: Hematocrit (blood only) 29.1 % (37-47); Hemoglobin 9.1 g/dL (12.0-16.0); Mean Corpuscular Hemoglobin 31.8 pg (25-34); Mean Corpuscular Hgb Conc 31.3 g/dL (32-36); Mean Corpuscular Volume 101.7 fL (80-100); RDW Coefficient of Variation 17.9 % (11.5-14.5); RDW Standard Deviation 66.5 fL (36.4-46.3); Red Blood Count 2.86 M/uL (4.2-5.4); White Blood Count 4.68 K/uL (4.8-10.8)
[2019-04-07 07:54] LABS: Mean Platelet Volume 11.7 fL (7.4-10.4); Platelet Count 60 K/uL (130-400)
[2019-04-07 07:55] LABS: Basophils # (auto) 0.01 K/uL (0-0.2); Basophils % (auto) 0.2 %; Eosinophils # (auto) 0.24 K/uL (0-0.5); Eosinophils % (auto) 5.1 %; Giant Platelets 1+; Immature Granulocytes # (auto) 0.01 K/uL (0.00-0.02); Immature Granulocytes % (auto) 0.2 %; Lymphocytes # (auto) 0.46 K/uL (1.2-3.4); Lymphocytes % (auto) 9.8 %; Monocytes # (auto) 0.24 K/uL (0.11-0.59); Monocytes % (auto) 5.1 %; Neutrophils # (auto) 3.72 K/uL (1.4-6.5); Neutrophils % (auto) 79.6 %
[2019-04-07 08:01] LABS: Creatinine Clr Calc Pharmacy 17.9 ml/min; Est GFR (African American) 24.7; Est GFR (Non-African American) 21.3; Magnesium 2.8 mg/dl (1.8-2.4)
[2019-04-07 08:02] LABS: Phosphorus 3.4 mg/dl (2.5-4.9)
[2019-04-07] MEDS: PIPERACILLIN/TAZOBACTAM 3.375 GM in DEXTROSE 5% 100 ML IV SCH (09:27)
[2019-04-07] MEDS: LACTOBACILLUS ACIDOPHILUS (FLORANEX) TAB PO SCH (09:28)
[2019-04-07] MEDS: POLYETHYLENE (MIRALAX) 17 GM PACK PO SCH (09:28)
[2019-04-07] MEDS: ROPINIROLE HCL 0.25 MG TABLET PO SCH ×3 (09:28→21:08)
[2019-04-07] MEDS: GABAPENTIN 100 MG CAP PO SCH (09:28)
[2019-04-07] MEDS: CARBIDOPA/LEVODOPA 25/100MG TAB PO SCH ×3 (09:28→21:08)
[2019-04-07] MEDS: ENOXAPARIN INJ 30 MG/0.3 ML SYR SQ SCH (09:29)
--- NOTE | 2019-04-07 14:43 | Hospitalist Progress Note ---
Date of Service April 07, 2019 Assessment & Plan (1) Altered mental status: Acute metabolic encephalopathy due to unknown etiology. - Likely causes are UTI vs. aspiration pneumonia/pneumonitis vs. viral. UTI is possible despite negative UA given she was on prior abx. Aspiration pneumonia/p neumonitis is also possible given the trouble with pills recently. - Continue Zosyn - TECHNOLOGY SALES CONSULTANT for possible aspiration evaluation - Evaluated on sequential days by TECHNOLOGY SALES CONSULTANT who have conservative recommendations. - Urine cx grew Diphtheroids - Will not be speciated, so unclear if this is causative agent of confusion or not. Switched to Augmentin 500-125mg PO BID to finish course of abx. (End date: 04/11) (2) Thrombocytopenia: Plt count dropping, could be secondary to acute infectious process. Down to 65k on 04/05 from 96 on admission. Baseline normal. - Follow CBC - Peripheral smear showed no abnormal morphology. - Down to 60k by 04/07, but overall stable. (3) Stage III pressure ulcer of left heel: Is followed by wound care for this. Has known severe PAD but too high risk for surgery given comorbidities as per [facility] vascular notes in chart. X-rays did not show any evidence of osteomyelitis. - Wound RN consulted - Continued conservative care. Low concern for infection today. (4) Anemia: Chronic,and had a drop from admission down to 8.7--> likely some hemodi lutional effect. No signs of bleeding. Iron labs indicate chronic disease. B12/folate normal on 04/05. - Follow CBC (5) Chronic kidney disease (CKD) stage G4/A1, severely decreased glomerular filtration rate (GFR) between 15-29 mL/min/1.73 square meter and albuminuria creatinine ratio less than 30 mg/g: Cr baseline is ~2.0-2.5. - Renally dose all meds - Augmentin will be 500-125mg. - Avoid nephrotoxins - Follow BMP - Stable today at 2.1. (6) Dysphagia: History of such - See above for speech notes. - Uses scopolamine patch which is on at present. (7) PAD (peripheral artery disease): Severe, bilat LEs. - As above - Holding statin - Is not on antiplatelet but would not start now given thrombocytopenia (8) Hypertension, benign: Holding home diuretics for lower BP. 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 - Is on gabapentin, Sinemet, ropinirole, and scopolamine patch for excessive secretions. (10) CAD (coronary artery disease), [place] coronary artery: Has h/o CABG 2001. - Not on ASA or beta uday but no ASA for now as above and BP too low for BB - As above (11) Diabetes mellitus: HgbA1C 6.3%, diet controlled. - Sliding scale insulin (12) DVT prophylaxis: Lovenox but hold if plts<50k. CODE STATUS: DNR but would want intubation for purely respiratory issue if expected to be temporary as discussed with pt's POA (daughter). Subjective Feels quite well today. No major concerns. Reports no fevers/chills, chest pain, shortness of breath, abdominal pain, nausea, or vomiting. Physical Exam Constitutional: WD/WN, vitals as above Eyes: EOM intact bilaterally; no conjunctival abnormality ENMT: external ear and nose normal, oropharynx normal Neck: trachea midline, no thyromegaly normal visual inspection Respiratory: normal respiratory effort, lungs clear to auscultation no respiratory distress Cardiovascular: RRR, no murmur, no edema Gastrointestinal (Abdomen): Inspection/Auscultation: abdomen normal to inspection; abdomen not distended Musculoskeletal: no cyanosis or clubbing, extremities motor strength 5/5 Skin: no rashes, warm and dry Neurologic: moves all extremities and awake Psychiatric: Orientation: alert, oriented to person and cooperative Results & Data Vital Signs (Past 12 Hours) Vital Signs Temp Pulse Pulse Resp BP Pulse Ox Pulse Ox 04/07/19 11:21 74 18 105/63 90 04/07/19 11:01 72 16 90 04/07/19 07:47 83 04/07/19 07:12 36.3 C L 78 16 109/60 99 04/07/19 07:07 78 16 97 04/07/19 03:55 92 04/07/19 03:37 36.4 C L 83 19 112/70 PG Care Time/CCT Total # of Minutes Spent Total Time Spent with Patient: Total time spent is greater than 50% in coordination of care (as documented) at patient's floor/unit and/or counseling patient: (1) Altered mental status Altered mental status type: unspecified Qualified Code(s): R41.82 - Altered mental status, unspecified
[2019-04-07] MEDS ORDERED: ALBUT/IPRATROP 3MG/0.5MG NEB 3 ML VIAL INH PRN (14:46)
[2019-04-07] MEDS: AMOXICILLIN/CLAVULANATE 500 MG TAB PO SCH (17:02)
[2019-04-08] MEDS: LEVOTHYROXINE SODIUM 100 MCG TABLET PO SCH (06:04)
[2019-04-08 06:55] LABS: Hematocrit (blood only) 27.3 % (37-47); Hemoglobin 8.7 g/dL (12.0-16.0); Mean Corpuscular Hemoglobin 32.2 pg (25-34); Mean Corpuscular Hgb Conc 31.9 g/dL (32-36); Mean Corpuscular Volume 101.1 fL (80-100); Mean Platelet Volume 12.3 fL (7.4-10.4); Platelet Count 67 K/uL (130-400); RDW Coefficient of Variation 17.9 % (11.5-14.5); RDW Standard Deviation 66.2 fL (36.4-46.3); White Blood Count 3.81 K/uL (4.8-10.8)
[2019-04-08 07:06] LABS: Potassium 4.6 mmol/L (3.5-5.1)
[2019-04-08 07:18] LABS: Albumin Level 2.4 gm/dl (3.4-5.0); BUN Creatinine Ratio 32.9 (10-20); Calcium 9.2 mg/dl (8.5-10.1); Creatinine Clr Calc Pharmacy 17.4 ml/min; Est GFR (African American) 23.8; Est GFR (Non-African American) 20.6
[2019-04-08 07:21] LABS: Albumin Globulin Ratio 0.5 (0.9-2); Bilirubin,Total 0.8 mg/dl (0.2-1); Globulin 5.3 gm/dl (2.5-4.0); Total Protein 7.7 gm/dl (6.4-8.2)
[2019-04-08] MEDS: GABAPENTIN 100 MG CAP PO SCH (08:27)
[2019-04-08] MEDS: LACTOBACILLUS ACIDOPHILUS (FLORANEX) TAB PO SCH (08:27)
[2019-04-08] MEDS: ROPINIROLE HCL 0.25 MG TABLET PO SCH ×3 (08:27→20:28)
[2019-04-08] MEDS: ENOXAPARIN INJ 30 MG/0.3 ML SYR SQ SCH (08:27)
[2019-04-08] MEDS: AMOXICILLIN/CLAVULANATE 500 MG TAB PO SCH ×2 (08:27→16:18)
[2019-04-08] MEDS: CARBIDOPA/LEVODOPA 25/100MG TAB PO SCH ×3 (08:28→20:28)
[2019-04-08] MEDS: POLYETHYLENE (MIRALAX) 17 GM PACK PO SCH (08:28)
--- NOTE | 2019-04-08 15:04 | Hospitalist Progress Note ---
Date of Service April 08, 2019 Assessment & Plan (1) Altered mental status: Acute metabolic encephalopathy due to unknown etiology. - Likely causes are UTI vs. aspiration pneumonia/pneumonitis vs. viral. UTI is possible despite negative UA given she was on prior abx. Aspiration pneumonia/p neumonitis is also possible given the trouble with pills recently. Initially on Zosyn. - NUCLEAR TECHNICIAN for possible aspiration evaluation - Evaluated on sequential days by NUCLEAR TECHNICIAN who have conservative recommendations. - Urine cx grew Diphtheroids - Will not be speciated, so unclear if this is causative agent of confusion or not. Switched to Augmentin 500-125mg PO BID to finish course of abx. (End date: 04/11) (2) Thrombocytopenia: Plt count dropping, could be secondary to acute infectious process. Down to 65k on 04/05 from 96 on admission. Baseline normal. - Follow CBC - Peripheral smear showed no abnormal morphology. - At 67k on 04/08. Overall stable to slightly rising. (3) Stage III pressure ulcer of left heel: Is followed by wound care for this. Has known severe PAD but too high risk for surgery given comorbidities as per [facility] vascular notes in chart. X-rays did not show any evidence of osteomyelitis. - Wound RN consulted - Continued conservative care. Low concern for infection at present. (4) Anemia: Chronic, and had a drop from admission down to 8.7--> likely some hemodilutional effect. No signs of bleeding. Iron labs indicate chronic disease. Renal disease playing a role. B12/folate normal on 04/05. Hemoccult stool was not sent; however, no overt melena or hematochezia. - Follow CBC (5) Chronic kidney disease (CKD) stage G4/A1, severely decreased glomerular filtration rate (GFR) between 15-29 mL/min/1.73 square meter and albuminuria creatinine ratio less than 30 mg/g: Cr baseline is ~2.0-2.5. - Renally dose all meds - Augmentin will be 500-125mg. - Avoid nephrotoxins - Follow BMP - Stable on 04/08 at 2.1. (6) Dysphagia: History of such - See above for speech notes. - Uses scopolamine patch which is on at present. (7) PAD (peripheral artery disease): Severe, bilat LEs. - As above - Holding statin - Is not on antiplatelet but would not start now given thrombocytopenia (8) Hypertension, benign: Was holding home diuretics for lower BP initially; however, she is gaining some weight, so there is some concern for mild hypervolemia. - Restarted home torsemide on 04/08. 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 - Is on gabapentin, Sinemet, ropinirole, and scopolamine patch for excessive secretions. (10) CAD (coronary artery disease), [place] coronary artery: Has h/o CABG 2001. - Not on ASA or beta uday but no ASA for now as above and BP too low for BB - As above (11) Diabetes mellitus: HgbA1C 6.3%, diet controlled. - Sliding scale insulin (12) DVT prophylaxis: Lovenox but hold if plts<50k. CODE STATUS: DNR but would want intubation for purely respiratory issue if expected to be temporary as discussed with pt's POA (daughter). Subjective Feels well. Still having trouble with secretions and eating; however, overall feeling well. Some shortness of breath and cough. Reports no fevers/chills, chest pain, abdominal pain, nausea, or vomiting. Physical Exam Constitutional: WD/WN, vitals as above Eyes: EOM intact bilaterally; no conjunctival abnormality ENMT: external ear and nose normal, oropharynx normal Neck: trachea midline, no thyromegaly normal visual inspection Respiratory: normal respiratory effort, lungs clear to auscultation no respiratory distress Cardiovascular: RRR, no murmur, no edema Gastrointestinal (Abdomen): Inspection/Auscultation: abdomen normal to inspection; abdomen not distended Musculoskeletal: no cyanosis or clubbing, extremities motor strength 5/5 Skin: no rashes, warm and dry Neurologic: moves all extremities and awake Psychiatric: Orientation: alert, oriented to person and cooperative Results & Data Vital Signs (Past 12 Hours) Vital Signs Temp Pulse Pulse Resp BP Pulse Ox 04/08/19 11:00 36.2 C L 64 18 107/56 L 91 04/08/19 07:15 68 04/08/19 07:00 36.2 C L 76 18 108/68 93 04/08/19 04:46 36.3 C L 63 20 114/71 97 PG Care Time/CCT Total # of Minutes Spent Total Time Spent with Patient: Total time spent is greater than 50% in coordination of care (as documented) at patient's floor/unit and/or counseling patient: (1) Altered mental status Altered mental status type: unspecified Qualified Code(s): R41.82 - Altered mental status, unspecified
[2019-04-08] MEDS: TORSEMIDE 10 MG TAB PO SCH (16:16)
[2019-04-08] MEDS ORDERED: SODIUM CHLORIDE 0.65% NA SOLN 45 ML (OCEAN) PRN (20:05)
[2019-04-08] MEDS ORDERED: NURSING DECISION MEDICATION ONE (20:34)
[2019-04-08] MEDS: CHECK SCOPOLAMINE PATCH PLACEMENT SCH (23:00)
[2019-04-09] MEDS: LEVOTHYROXINE SODIUM 100 MCG TABLET PO SCH (05:59)
[2019-04-09] MEDS: CHECK SCOPOLAMINE PATCH PLACEMENT SCH ×2 (09:14→15:52)
[2019-04-09] MEDS: AMOXICILLIN/CLAVULANATE 500 MG TAB PO SCH (09:14)
[2019-04-09] MEDS: TORSEMIDE 10 MG TAB PO SCH (09:14)
[2019-04-09] MEDS: LACTOBACILLUS ACIDOPHILUS (FLORANEX) TAB PO SCH (09:15)
[2019-04-09] MEDS: CARBIDOPA/LEVODOPA 25/100MG TAB PO SCH ×2 (09:16→14:23)
[2019-04-09] MEDS: ROPINIROLE HCL 0.25 MG TABLET PO SCH ×2 (09:16→14:23)
[2019-04-09] MEDS: GABAPENTIN 100 MG CAP PO SCH (09:16)
[2019-04-09] MEDS: POLYETHYLENE (MIRALAX) 17 GM PACK PO SCH (09:34)
[2019-04-09] MEDS: ENOXAPARIN INJ 30 MG/0.3 ML SYR SQ SCH (09:35)
--- NOTE | 2019-04-09 16:03 | Discharge Summary ---
Date of Service April 09, 2019 Admission HPI Per Admitting Provider This is an 83-year-old female with complex medical history including aspiration, ASCVD, HFrEF, pulmonary arterial hypertension, status post CABG times 09/2001, AV block status post dual-chamber pacemaker 2016, paroxysmal A. fib, stage IV CKD, stable and healing decubitus ulcer of left heel, sleep apnea, [id number] (controlled with diet) with subsequent polyneuropathy, hypertension/hypotension -- who presents with daughter who is her caregiver and medical POA due to worsening altered mental status x1 week. Daughter provides history. Daughter states it began Friday, she says she was unable to initiate movement with her feet, and daughter had to baseball coach her to walk normally with her walker. She also began to be more agitated and irritable. Daughter wondered if this was due to a UTI. She was seen by her vascular surgeon's office on Friday, and that provider wondered if she had a UTI. So the daughter took the patient to her PCP where they did a urine dip, and she was started on Macrobid. UA on 03/23 0 had small leukocyte esterase. Urine culture is growing normal katy. Daughter states patient began to become increasingly more restless and disoriented over today, and because of this gait abnormality was not being able to make it to the bathroom and was therefore incontinent. Apparently the patient complained of some abdominal tenderness 08/02 when the home health nurse examined her earlier today. P.o. intake is slightly decreased today. Patient was constipated earlier this week, and daughter treated this with an enema with good effect, normal brown bowel movements x2 today. Of note patient has not been vomiting, did not endorse to her daughter any chest pain or shortness of breath. She has been coughing more than usual. No kobi history this week of witnessed aspiration. Of note she was seen by her auxiliary operator last week and no medication changes were made. She was also seen by her wound care service last week and no medication changes were made to the decubitus ulcer on her left heel. She was also seen by her PCP last week and routine labs were stable. ED course: vanc, cefepime, ativan, IVF 2L NSS bolus. Surgical History: History of cholecystectomy, History of total abdominal hysterectomy and bilateral salpingo-oophorectomy, Hx of appendectomy, S/P CABG x 4 SH: Lives at home with her daughter who is her caregiver and medical POA. No T/E/D. Principal Diagnosis Likely aspiration pneumonia Discharge Exam Constitutional WD/WN, vitals as above Eyes EOM intact bilaterally; no conjunctival abnormality ENMT external ear and nose normal, oropharynx normal Neck trachea midline, no thyromegaly normal visual inspection Respiratory normal respiratory effort, lungs clear to auscultation no respiratory distress Cardiovascular RRR, no murmur, no edema Gastrointestinal (Abdomen) Inspection/Auscultation: abdomen normal to inspection; abdomen not distended Musculoskeletal no cyanosis or clubbing, extremities motor strength 5/5 Skin no rashes, warm and dry Neurologic moves all extremities and awake Psychiatric Orientation: alert, oriented to person and cooperative Discharge Data Allergies Allergy/AdvReac Type Severity Reaction Status Date / Time esomeprazole Allergy Unknown Verified 04/03/19 23:09 sulfamethoxazole Allergy Unknown Verified 04/03/19 23:09 [From Bactrim] trimethoprim [From Bactrim] Allergy Unknown Verified 04/03/19 23:09 Consultations 04/04/19 01:13 ED Decision to Admit Stat 04/04/19 03:20 Consult Case Management - Discharge Planning Routine Hospital Course (1) Altered mental status: Acute metabolic encephalopathy due to likely UTI vs. aspiration pneumonia/pneumonitis vs. viral. UTI is possible despite negative UA given she was on prior abx. Aspiration pneumonia/pneumonitis is also possible given the trouble with pills recently. Initially on Zosyn. - FRONT LINE SUPERVISOR for possible aspiration evaluation - Evaluated on sequential days by FRONT LINE SUPERVISOR who have conservative recommendations that were included in the discharge summary. - Urine cx grew Diphtheroids - Will not be speciated, so unclear if this is causative agent of confusion or not. Switched to Augmentin 500-125mg PO BID to finish course of abx. (End date: 04/11). This will cover likely UTI pathogens and possible aspiration pneumonia. (2) Thrombocytopenia: Plt count was low. Could be secondary to acute infectious process. Down to 65k on 04/05 from 96 on admission. Baseline normal. - Peripheral smear showed no abnormal morphology. - At 67k on 04/08. Overall stable to slightly rising. Recheck CBC in 3-4 days. (3) Stage III pressure ulcer of left heel: Is followed by wound care for this. Has known severe PAD but too high risk for surgery given comorbidities as per [facility] vascular notes in chart. X-rays did not show any evidence of osteomyelitis. - Wound RN consulted - Continued conservative care. (4) Anemia: Chronic, and had a drop from admission down to 8.7 -> likely some hemodilutional effect. No signs of bleeding. Iron labs indicate chronic disease. Renal disease playing a role. B12/folate normal on 04/05. Hemoccult stool was not sent; however, no overt melena or hematochezia. - Follow CBC in 3-4 days. Daughter will discuss with outpatient retail and promotions coordinator regarding Epogen shot. (5) Chronic kidney disease (CKD) stage G4/A1, severely decreased glomerular filtration rate (GFR) between 15-29 mL/min/1.73 square meter and albuminuria creatinine ratio less than 30 mg/g: Cr baseline is ~2.0-2.5. - Renally dose all meds - Augmentin will be 500-125mg. - Avoid nephrotoxins - Follow BMP - Stable on 04/08 at 2.1. (6) Dysphagia: History of such - See above for speech notes. - Uses scopolamine patch which is on at present. (7) PAD (peripheral artery disease): Severe, bilat LEs. - Is not on antiplatelet but would not start now given thrombocytopenia -> Could consider starting as platelets rebound. (8) Hypertension, benign: Was holding home diuretics for lower BP initially; however, she is gaining some weight, so there is some concern for mild hypervolemia. - Restarted home torsemide on 04/08. Continue on discharge. 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 - Is on gabapentin, Sinemet, ropinirole, and scopolamine patch for excessive secretions. (10) CAD (coronary artery disease), [place] coronary artery: Has h/o CABG 2001. - Not on ASA or beta uday but no ASA for now as above and BP too low for BB - As above (11) Diabetes mellitus: HgbA1C 6.3%, diet controlled. - Sliding scale insulin (12) DVT prophylaxis: Lovenox CODE STATUS: DNR but would want intubation for purely respiratory issue if expected to be temporary as discussed with pt's POA (daughter). Total Time Total Time Spent Total Time Spent (In Minutes): 45 Discharge Plan Discharge Items Patient Disposition: Transfer [facility] Reason For Visit: AMS, UTI Discharge Diagnosis: Aspiration pneumonia, altered mental status Activity: Resume your previous activity Exercise/Sports: Gradually increase as tolerated Non-emergency contact: Primary Care Provider and Neurologist Call non-emergency contact if: your symptoms worsen and your temperature is above 101 Follow-up/Referrals: Eanrest Meyer MD [Primary Care Provider] - Diet: Regular Diet Texture: Mechanical soft (ground) Liquid Consistency: [place] thick Diet Comment: Minced and moist diet; nectar thick liquids. No straws. Addtl Attending Provider Instructions: You were admitted for altered mental status that we believe may have been due to aspiration pneumonia. You were on IV antibiotics, and we have switched you to oral antibiotics to finish your course. Your antibiotics will finish on 04/11/2019. We had speech see you and they recommend having a moist and minced diet along with nectar thick liquids to prevent aspiration as your pseudobulbar palsy can make it hard to swallow and handle your secretions. Their recs: * Minced and moist diet; nectar thick liquids * Aspiration precautions * Continue working with speech-language * Alternate solids and liquids * Crush medications * Fully upright for meals/drinking Please follow up with your [facility] neurologists at your next normal appointment. Pending Studies at Discharge: No Stand-Alone Forms: My [facility] Skilled Items Patient informed of condition?: Yes DNR: No Discharge Level of Care: Acute rehab Communicable Disease: Yes (MRSA in wound) Discharge Prognosis: Improving Lines: None Urinary Catheter: No Medications and DC Order Prescriptions: New amoxicillin-pot clavulanate 500-125 mg Tablet 1 tab PO BIDM Qty: 1 RF: 0 Continued Centrum Chewables 8 mg-400 mcg- 10 mcg tablet,chewable 1 tab PO DAILY Qty: 30 RF: 0 bisacodyl [Dulcolax (bisacodyl)] 5 mg tablet,delayed release (DR/EC) 5 mg PO DAILY PRN (Reason: constipation) Qty: 30 RF: 0 nitroglycerin [Nitrostat] 0.4 mg tablet, sublingual 0.4 mg SL Q5M PRN (Reason: chest pain x3 doses, if no relief call 911) Qty: 25 RF: 0 acetaminophen [Tylenol] 325 mg tablet 650 mg PO Q4H PRN (Reason: pain) Qty: 100 RF: 0 sennosides-docusate sodium [Senna-S] 8.6-50 mg tablet 2 tab PO BID PRN (Reason: constipation) Qty: 120 RF: 5 polyethylene glycol 3350 17 gram powder in packet 17 gm PO .COMPLEX Qty: 30 RF: 5 gabapentin 100 mg capsule 100 mg PO DAILY Qty: 30 RF: 5 albuterol sulfate 90 mcg/actuation HFA aerosol inhaler 2 puffs INH Q4H PRN (Reason: shortness of breath or wheezing) Qty: 18 RF: 5 atorvastatin 20 mg tablet 20 mg PO QPM Qty: 90 RF: 3 ipratropium-albuterol 0.5 mg-3 mg(2.5 mg base)/3 mL solution for nebulization 3 ml INH Q6H PRN (Reason: shortness of breath or wheezing) Qty: 180 RF: 5 levothyroxine 100 mcg tablet 100 mcg PO DAILY Qty: 90 RF: 3 ropinirole 0.25 mg tablet 0.25 mg PO TID Qty: 270 RF: 3 carbidopa-levodopa [Sinemet] 25-100 mg tablet 1 tab PO TID RF: 0 ondansetron 4 mg tablet,disintegrating 4 mg PO Q8H PRN (Reason: nausea and vomiting) Qty: 30 RF: 0 cholecalciferol (vitamin D3) 5,000 unit capsule 5,000 units PO DAILY Qty: 30 RF: 5 ranitidine HCl 150 mg tablet 150 mg PO DAILY RF: 0 torsemide [Demadex] 20 mg tablet 20 mg PO DAILY RF: 0 Culturelle 10 billion cell capsule 1 cap PO DAILY RF: 0 scopolamine base [Transderm-Scop] 1 mg over 3 days patch 3 day 1 patch TD Q72H MDD 1 PRN (Reason: secretions) Qty: 10 RF: 5 Discontinued nitrofurantoin monohyd/m-cryst [Macrobid] 100 mg capsule 100 mg PO BID Qty: 14 RF: 0 Discharge Orders: Discharge Order (Routine); Ordered 04/09/19 Ordered By: Jonnie Medina Admission Data Admit Date/Time: 04/04/19 02:21 Attending Provider: Jonnie Medina Admit Provider: Stephanie Dunham Primary Care Provider: Earnest Meyer Other Providers: Sowmya Early,Omkar D.
== END 2019-04-09 16:50 | DRG 177 ==
LOC: ED 22:19 → SUATTDRO 04-04 02:21 → 2W 04-04 02:21

== ENCOUNTER 2019-05-05 15:43 | Inpatient (IN) ==
[2019-05-05] MEDS ORDERED: SODIUM CHLORIDE 0.9% 1000ML 1,000 ML IV ONE (16:08)
--- NOTE | 2019-05-05 16:21 | XRay Report ---
XR chest 1V portable CLINICAL HISTORY: 83 years-old Female presenting with Sepsis. TECHNIQUE: Portable upright AP view of the chest was obtained. COMPARISON: 04/03/2019. FINDINGS: Left subclavian pacer with leads in the right atrium and right ventricular apex. Median sternotomy wi res. Several overlying external leads also noted. Atherosclerosis of the aortic arch. Cardiac silhoue tte moderately enlarged as on prior. Mediastinal surgical clips noted along the left heart border. Pu lmonary vascular prominence. Interstitial prominence worsened from prior. Interval development of pat betrha basilar predominant opacities new from prior. No large effusion or pneumothorax. Osteopenia. Dege nerative changes of the spine. Upper abdomen normal. IMPRESSION: 1. Cardiomegaly with interval development of advanced congestive change and mild to moderate pulmona ry edema. Aspiration or infection could appear similarly. Electronically signed by: Truong Lu M.D. 05/05/2019 4:20 PM
--- NOTE | 2019-05-05 16:22 | XRay Report ---
KUB HISTORY: Acute abdominal distention distended abd COMPARISON: Chest radiograph of same day, CT abdomen and pelvis 09/11/2018 FINDINGS: The bowel gas pattern is non-obstructive. Moderate fecal distention of the rectum. Surgical suture material projects over the right midabdomen. Mild gaseous distention of the stomach. There is no organomegaly. No renal calculi. No ureteral calculi. No pneumoperitoneum or pneumatosis. Deminer alized appearance the bones with degenerative changes of the hips, pelvis and spine. Intertrochanteri c nail with medullary taryn of the right femur. Heterotopic ossifications are noted superior to the rig ht femoral neck. No fracture. IMPRESSION: Nonobstructive bowel gas pattern. Electronically signed by: Jamie Ahumada M.D. 05/05/2019 4:20 PM
--- NOTE | 2019-05-05 16:33 | Emergency Department Note ---
Entered by Rossana Ochoa acting as a scribe for Lester Francis DO History of Present Illness General Chief complaint: Hypothermia Stated complaint: LOW BODY TEMP, CONSTIPATION Time Seen by Provider: 05/05/19 16:00 Source: patient and family (daughter) History of Present Illness Onset (ago): hour(s) (today) Pain Consistency: + constant Associated symptoms: + denies other symptoms (dysuria, hematuria), + confusion (AOx2, unsure of year), + loss of appetite and + other (trouble ambulating even with assistance of walker, chills, left hand shaking, constipation) The patient is a 83 year old female who presents to the Emergency Room with complaints of hypothermia. The patient's daughter states that her mother was discharged from rehab at [facility] 1 day ago after a recent hospital admission for infection and hypothermia in March. The patient lives with her daughter and her home health nurse checked in today and noted a very low body temp prompting her ED visit today. The daughter states that her house is kept warm, however it has not helped her mother as she has been experiencing an ongoing low body temperature. Upon evaluation, the patient is AOx2 and is unsure of the year. Daughter notes normal fluid intake. normal urination, but has noticed her mother has loss of appetite. Additionally the patient is experiencing trouble ambulating even with assistance of her walker, "shaking" in her left hand, and constipation. She is unsure of her last bowel movement. The daughter also reports a wound on the patient's left heel which is not new. She explains that this happened back in July and that her PCP was monitoring it. The patient is not currently on any antibiotics but just recently finished Augmentin. Additionally, the daughter reports that her mother saw her vascular surgeon this past week since her "wound doctor" wanted her to be evaluated. Of note, the daughter states that there has been a recent change in her mothers thyroid medication. The daughter also reports that her mother does not have a history of Parkinson's Disease but she was given meds due to trouble swallowing on her left side as well as a history of aspiration. The daughter states that she has thickened her fluids to prevent this and that the patient is unable to get an MRI because of her pacemaker. The patient denies dysuria and hematuria. The daughter and patient offer no additional complaints at this time. Home Medications Home Medications Medication Instructions Recorded Confirmed Type acetaminophen 325 mg tablet 650 mg PO Q4H PRN #100 tab 01/22/19 05/05/19 Rx onwbwesc-nfaklmkf-uuaw 8 mg-folic 1 tab PO DAILY #30 tab 01/22/19 05/05/19 Rx ac 400 mcg-vit K 10 mcg chew tablet nitroglycerin 0.4 mg sublingual 0.4 mg SL Q5M PRN #25 tab 01/22/19 05/05/19 Rx tablet sennosides 8.6 mg-docusate sodium 2 tab PO BID PRN #120 tab 01/22/19 05/05/19 Rx 50 mg tablet cholecalciferol (vitamin D3) 5,000 5,000 units PO DAILY #30 cap 01/27/19 05/05/19 Rx unit capsule albuterol sulfate 90 mcg/actuation 2 puffs INH Q4H PRN #18 gm 01/28/19 05/05/19 Rx aerosol inhaler atorvastatin 20 mg tablet 20 mg PO QPM #90 tab 02/01/19 05/05/19 Rx ipratropium-albuterol 0.5 mg-3 3 ml INH Q6H PRN #180 ml 02/01/19 05/05/19 Rx mg(2.5 mg base)/3 mL nebulization soln ropinirole 0.25 mg tablet 0.25 mg PO TID #270 tab 02/23/19 05/05/19 Rx carbidopa 25 mg-levodopa 100 mg 1 tab PO TID tab 03/25/19 05/05/19 History tablet ondansetron 4 mg disintegrating 4 mg PO Q8H PRN #30 tab 04/01/19 05/05/19 Rx tablet Culturelle 1 cap PO DAILY 04/03/19 05/05/19 History scopolamine base [Transderm-Scop] 1 patch TD Q72H PRN #10 ea MDD 1 04/09/19 05/05/19 Rx docusate sodium 100 mg PO DAILY 05/05/19 05/05/19 History gabapentin 100 mg PO TID 05/05/19 05/05/19 History levothyroxine 125 mcg PO DAILY 05/05/19 05/05/19 History torsemide 40 mg PO DAILY 05/05/19 05/05/19 History Allergies Allergy/AdvReac Type Severity Reaction Status Date / Time esomeprazole Allergy Unknown Verified 05/05/19 17:03 sulfamethoxazole Allergy Unknown Verified 05/05/19 17:03 [From Bactrim] trimethoprim [From Bactrim] Allergy Unknown Verified 05/05/19 17:03 Past Med/Surg History Medical History Anemia (Chronic) ASCVD (arteriosclerotic cardiovascular disease) (Acute) Aspiration pneumonitis (Acute) Atrioventricular block, Mobitz type 1, Wenckebach (Acute) Benign essential hypertension (Chronic) Cardiomyopathy, nonischemic (Acute) Chronic kidney disease (CKD) stage G4/A1, severely decreased glomerular filtration rate (GFR) between 15-29 mL/min/1.73 square meter and albuminuria creatinine ratio less than 30 mg/g (Chronic) CKD (chronic kidney disease) (Chronic) CKD (chronic kidney disease) (Acute) Decubitus ulcer of heel, stage 3 (Acute) Depression (Chronic) Diabetes mellitus with diabetic polyneuropathy (Acute) Diabetes mellitus with neurological manifestations, uncontrolled (Chronic) Diabetic retinopathy, nonproliferative (Chronic) Diabetic ulcer of left heel associated with type 2 diabetes mellitus, with fat layer exposed (Acute) DM II (diabetes mellitus, type II), controlled (Acute) Dysphagia (Acute) Elevated beta-2 microglobulin (Chronic) Encounter for diagnostic colonoscopy due to change in bowel habits (Acute) GERD (gastroesophageal reflux disease) (Acute) Heart block AV second degree (Chronic) High globulin level (Chronic) HTN (hypertension) (Acute) Hypercholesterolemia (Chronic) Hypertension, benign (Chronic) Hypotension (Acute) Hypothyroidism (Acute) Hypothyroidism (acquired) Hypoxemia (Acute) Morbid obesity (Acute) Neuropathic ulcer of left heel (Acute) Non-rheumatic tricuspid valve insufficiency (Acute) Pacemaker (Acute) Pleural effusion associated with pulmonary infection (Acute) Pulmonary artery hypertension (Acute) Recurrent UTI (Acute) Right-sided heart failure (Acute) Sleep apnea (Acute) Stage 4 chronic kidney disease due to hypertension (Chronic) Stage III pressure ulcer of left heel (Acute) Supranuclear palsies, progressive (Acute) Traumatic wound (Acute) Venous insufficiency (Acute) Surgical History History of cholecystectomy (Acute) History of total abdominal hysterectomy and bilateral salpingo-oophorectomy (Acute) Hx of appendectomy (Acute) S/P CABG x 4 (Acute) Social History Preferred Language: Sami Communication Ability: Impaired Communication Ability Comment: difficult to understand. doesnt answer some questions Communication Tools: Picture Board Visual Impairment: Limited Hearing Ability: Normal [place] [employer] Supervisor Required: No Beliefs That Will Affect Care: None marital status: / Current Living Situation: Family Current Living Situation Comment: lives with daughter current occupational status: retired Feels Safe at Home: Yes Safety Concerns: Feels Safe At This Time Smoking Status: Never smoker Second Hand Exposure: Yes ; Hx Alcohol Use: No Hx Substance Use: No Childhood Exposure to Second-Hand Smoke: Yes caffeine: No during the past year weight has: decreased > 10 lbs Dental Care, Regularly: Yes Physical Activity Frequency: Daily Sunscreen Use: Yes Do you think of yourself as: straight/heterosexual Sexual Activity: has been sexually active, but not for at least 12 months Review of Systems See HPI for pertinent positives & negatives. and A total of 10 systems reviewed and were otherwise negative Physical Exam Vital Signs Vital Signs - 24 hr 05/05/19 17:41 05/05/19 18:07 05/05/19 18:19 Temperature 33.5 C L Temperature Source Rectal Pulse Rate 60 Pulse Rate [Right Finger] Pulse Rate from SpO2 Sensor 60 Pulse Rhythm [Right Finger] Pulse Strength [Right Finger] Respiratory Rate 14 Respiratory Effort / Characteristics Respiratory Depth Respiratory Pattern Blood Pressure 90/55 L Blood Pressure [Right Arm] Blood Pressure Mean 63 Blood Pressure Mean [Right Arm] Blood Pressure Position [Right Arm] Pulse Oximetry 100 100 84 L Oxygen Delivery Method Oxymask Oxymask Oxygen Flow Rate 4 4 Oxygen Flow Rate - Titration 10 Pulse Oximetry Post Tiitration 100 05/05/19 18:27 05/05/19 19:09 05/05/19 19:32 Temperature 34.4 C L Temperature Source Rectal Pulse Rate Pulse Rate [Right Finger] 64 62 Pulse Rate from SpO2 Sensor Pulse Rhythm [Right Finger] Regular Regular Pulse Strength [Right Finger] Respiratory Rate 14 18 Respiratory Effort / Characteristics Non-Labored Spontaneous Respiratory Depth Normal Normal Respiratory Pattern Regular Blood Pressure Blood Pressure [Right Arm] 91/57 L 103/48 L Blood Pressure Mean Blood Pressure Mean [Right Arm] 68 66 Blood Pressure Position [Right Arm] Lying Lying Pulse Oximetry 100 100 97 Oxygen Delivery Method Oxymask Nasal Cannula Nasal Cannula Oxygen Flow Rate 10 10 4 Oxygen Flow Rate - Titration 4 Pulse Oximetry Post Tiitration 100 05/05/19 20:00 05/05/19 20:05 Temperature Temperature Source Pulse Rate Pulse Rate [Right Finger] 64 Pulse Rate from SpO2 Sensor Pulse Rhythm [Right Finger] Regular Pulse Strength [Right Finger] Normal Respiratory Rate 18 18 Respiratory Effort / Characteristics Non-Labored Spontaneous Non-Labored Spontaneous Respiratory Depth Normal Normal Respiratory Pattern Regular Regular Blood Pressure Blood Pressure [Right Arm] 89/52 L Blood Pressure Mean Blood Pressure Mean [Right Arm] 64 Blood Pressure Position [Right Arm] Lying Pulse Oximetry 86 L 95 Oxygen Delivery Method Nasal Cannula Oxymask Oxygen Flow Rate 4 4 Oxygen Flow Rate - Titration Pulse Oximetry Post Tiitration GENERAL: Patient is listless but responds to verbal commands. She follows commands slowly but appropriately. EYES: The conjunctivae are clear. The pupils are round and reactive. EARS, NOSE, MOUTH AND THROAT: The nose is without any evidence of any deformity. Mucous membranes are dry. NECK: The neck is nontender and supple. RESPIRATORY: Normal respiratory effort is noted there is no evidence of wheezing rhonchi or rales CARDIOVASCULAR: Regular rate and rhythm noted there no murmurs rubs or gallops normal S1 normal S2 GASTROINTESTINAL: The abdomen is nondistended and soft. There is mild fullness in the left side of the abdomen. There is no guarding rigidity. MUSCULOSKELETAL/EXTREMITIES: There is no evidence of gross deformity full range of motion is noted in the hips and shoulders SKIN: Pedal edema was noted bilaterally. There is an ulcer on the left heel. There is no erythema or drainage. NEUROLOGIC: Patient is oriented to person place and situation. Strength was symmetric but diminished. Course Course 1608: Past medical records reviewed. The patient was evaluated in room A02. A complete history and physical exam was performed. 9: I updated the patient and family on results. 2018: Spoke with Dr. Amaya, [facility] who accepts the patient for admission. The patient and family verbally expressed understanding and agreement of the treatment plan. The patient will be evaluated for further treatment. Administered Medications Albuterol (Duoneb) 3 ml NEB QIDR FELICITA Stop: 06/05/19 06:59 Last Admin: 05/06/19 15:15 Dose: 3 ml Documented by: [id number] Admin: 05/06/19 11:33 Dose: 3 ml Documented by: [id number] Admin: 05/06/19 06:58 Dose: 3 ml Documented by: [id number] Heparin Sodium (Porcine) (Heparin Sodium (Porcine)) 5,000 units SQ Q12 FELICITA Stop: 06/04/19 22:16 Last Admin: 05/06/19 11:16 Dose: 5,000 units Documented by: [id number] Cosigned by: [id number] Admin: 05/05/19 23:34 Dose: 5,000 units Documented by: [id number] Cosigned by: [id number] Linezolid (Zyvox) 600 mg in 300 mls @ 200 mls/hr IV Q12H FELICITA; Protocol Stop: 05/12/19 22:59 Last Infusion: 05/06/19 13:09 Dose: 0 mls/hr Documented by: [id number] Admin: 05/06/19 11:26 Dose: 200 mls/hr Documented by: [id number] Infusion: 05/06/19 01:29 Dose: 0 mls/hr Documented by: [id number] Admin: 05/05/19 23:16 Dose: 200 mls/hr Documented by: [id number] Discontinued Medications Sodium Chloride (Nss 1000ml) 1,000 mls @ 999 mls/hr IV .Q1H1M ONE Stop: 05/05/19 17:08 Last Infusion: 05/05/19 18:01 Dose: 0 mls/hr Documented by: [id number] Admin: 05/05/19 16:59 Dose: 999 mls/hr Documented by: [id number] Piperacillin Sod/Tazobactam Sod (Zosyn) 4.5 gm in 120 mls @ 240 mls/hr IV NOW ONE Stop: 05/05/19 19:00 Last Infusion: 05/05/19 19:10 Dose: 0 mls/hr Documented by: [id number] Admin: 05/05/19 18:40 Dose: 240 mls/hr Documented by: [id number] Vancomycin HCl 2,750 mg/ (Sodium Chloride) 555 mls @ 200 mls/hr IV NOW ONE Stop: 05/05/19 22:51 Last Admin: 05/05/19 22:25 Dose: Not Given Documented by: [id number] Albumin Human (Albumin 25%) 50 mls @ 50 mls/hr IV Q1H FELICITA Stop: 05/05/19 22:29 Last Infusion: 05/05/19 23:34 Dose: 0 mls/hr Documented by: [id number] Admin: 05/05/19 23:33 Dose: 50 mls/hr Documented by: [id number] Infusion: 05/05/19 23:33 Dose: 0 mls/hr Documented by: [id number] Admin: 05/05/19 23:23 Dose: 50 mls/hr Documented by: [id number] Piperacillin Sod/Tazobactam (Sod 3.375 gm/ Dextrose) 115 mls @ 28.75 mls/hr IV Q8H FELICITA; Protocol Stop: 05/13/19 00:00 Last Infusion: 05/06/19 11:10 Dose: 0 mls/hr Documented by: [id number] Admin: 05/06/19 08:56 Dose: 28.8 mls/hr Documented by: [id number] Infusion: 05/06/19 03:30 Dose: 0 mls/hr Documented by: [id number] Admin: 05/05/19 23:40 Dose: 28.8 mls/hr Documented by: [id number] Lactated Ringer's (Lr) 1,000 mls @ 80 mls/hr IV .[id number] FELICITA Stop: 06/05/19 12:14 Last Infusion: 05/06/19 16:53 Dose: 0 mls/hr Documented by: [id number] Admin: 05/06/19 12:39 Dose: 80 mls/hr Documented by: [id number] Miscellaneous (Patient's Height And/Or Weight Needed) 1 ea N/A Q30M FELICITA Stop: 05/06/19 01:31 Last Admin: 05/05/19 23:40 Dose: Not Given Documented by: [id number] Admin: 05/05/19 23:40 Dose: Not Given Documented by: [id number] Admin: 05/05/19 23:40 Dose: Not Given Documented by: [id number] Admin: 05/05/19 23:40 Dose: Not Given Documented by: [id number] Admin: 05/05/19 23:40 Dose: Not Given Documented by: [id number] Impression & Plan Hypothermia, Hypotension, Hypoxia Discharge Plan Visit Data *Final* Discharge Date/Time: 05/05/19 21:18 Chief Complaint: Hypothermia Stated Complaint: LOW BODY TEMP, CONSTIPATION ED Provider: Lester Francis Discharge Problem: Hypothermia, Hypotension, Hypoxia Patient Disposition: Admitted As Inpatient Discharge Instructions Interventions: ED Discharge Assessment Last Done: 05/05/19 21:18 Medical Decision Making Differential Diagnosis Differential diagnosis includes but is not limited to etiologies such as sepsis, UTI, pneumonia, metabolic, electrolyte abnormalities, cardiac sources, intracerebral event, toxicologic, neurologic, as well as others were entertained. Medical Records Attestation: I reviewed the patient's medical records. Home Medications Current Medication List: was personally reviewed by sc Laboratory Data Attestation: I reviewed the patient's lab results. Result diagrams: 05/06/19 16:34 05/06/19 16:34 Lab Results 05/05/19 05/05/19 05/05/19 Range/Units 16:28 16:28 16:28 WBC 4.60 L (4.8-10.8) K/uL RBC 2.91 L (4.2-5.4) M/uL Hgb 9.4 L (12.0-16.0) g/dL Hct 30.5 L (37-47) % MCV 104.8 H (80-100) fL MCH 32.3 (25-34) pg MCHC 30.8 L (32-36) g/dL RDW Std Deviation 73.5 H (36.4-46.3) fL RDW Coeff of Ean 18.9 H (11.5-14.5) % Plt Count 190 (130-400) K/uL MPV 11.0 H (7.4-10.4) fL Immature Gran % (Auto) 0.2 % Neut % (Auto) 77.1 % Lymph % (Auto) 15.7 % Sequoyah % (Auto) 4.6 % Eos % (Auto) 2.2 % Baso % (Auto) 0.2 % Immature Gran # (Auto) 0.01 (0.00-0.02) K/uL Neut # (Auto) 3.55 (1.4-6.5) K/uL Lymph # (Auto) 0.72 L (1.2-3.4) K/uL Sequoyah # (Auto) 0.21 (0.11-0.59) K/uL Eos # (Auto) 0.10 (0-0.5) K/uL Baso # (Auto) 0.01 (0-0.2) K/uL ESR (0-21) mm/hr PT 12.0 (9.0-12.0) Seconds INR 1.2 H (0.9-1.1) APTT 27.9 (21.0-31.0) Seconds PTT Ratio 1.0 VBG pH (7.36-7.41) VBG pCO2 (38-50) mmHg VBG pO2 mmHg VBG HCO3 mmol/L VBG O2 Saturation % VBG Base Excess mEq/L Barometric Pressure mm/Hg Sodium (136-145) mmol/L Potassium (3.5-5.1) mmol/L Chloride (98-107) mmol/L Carbon Dioxide (21-32) mmol/L Anion Gap (3-11) BUN (7-18) mg/dl Creatinine (0.6-1.2) mg/dl Est Cr Clr Drug Dosing Est GFR ( Amer) Est GFR (Non-Af Amer) BUN/Creatinine Ratio (10-20) Glucose (70-99) mg/dl Lactate 2.0 (0.4-2.0) mmol/L Calcium (8.5-10.1) mg/dl Magnesium (1.8-2.4) mg/dl Total Bilirubin (0.2-1) mg/dl AST (15-37) U/L ALT (12-78) U/L Alkaline Phosphatase (45-117) U/L Troponin I (0-0.045) ng/ml C-Reactive Protein (0-0.29) mg/dl Total Protein (6.4-8.2) gm/dl Albumin (3.4-5.0) gm/dl Globulin (2.5-4.0) gm/dl Albumin/Globulin Ratio (0.9-2) Lipase (73-393) U/L Procalcitonin (0-0.5) ng/ml TSH (0.300-4.500) uIu/ml Urine Color Urine Appearance (Clear) Urine pH (4.5-7.5) Ur Specific [place] (1.000-1.030) Urine Protein (Negative) Urine Glucose (UA) (Negative) Urine Ketones (Negative) Urine Blood (Negative) Urine Nitrite (Negative) Urine Bilirubin (Negative) Urine Urobilinogen (Negative) Ur Leukocyte Esterase (Negative) 05/05/19 05/05/19 05/05/19 Range/Units 16:28 16:28 16:28 WBC (4.8-10.8) K/uL RBC (4.2-5.4) M/uL Hgb (12.0-16.0) g/dL Hct (37-47) % MCV (80-100) fL MCH (25-34) pg MCHC (32-36) g/dL RDW Std Deviation (36.4-46.3) fL RDW Coeff of Ean (11.5-14.5) % Plt Count (130-400) K/uL MPV (7.4-10.4) fL Immature Gran % (Auto) % Neut % (Auto) % Lymph % (Auto) % Sequoyah % (Auto) % Eos % (Auto) % Baso % (Auto) % Immature Gran # (Auto) (0.00-0.02) K/uL Neut # (Auto) (1.4-6.5) K/uL Lymph # (Auto) (1.2-3.4) K/uL Sequoyah # (Auto) (0.11-0.59) K/uL Eos # (Auto) (0-0.5) K/uL Baso # (Auto) (0-0.2) K/uL ESR > 90 H (0-21) mm/hr PT (9.0-12.0) Seconds INR (0.9-1.1) APTT (21.0-31.0) Seconds PTT Ratio VBG pH (7.36-7.41) VBG pCO2 (38-50) mmHg VBG pO2 mmHg VBG HCO3 mmol/L VBG O2 Saturation % VBG Base Excess mEq/L Barometric Pressure mm/Hg Sodium 140 (136-145) mmol/L Potassium 5.1 (3.5-5.1) mmol/L Chloride 100 (98-107) mmol/L Carbon Dioxide 36 H (21-32) mmol/L Anion Gap 4.0 (3-11) BUN 65 H (7-18) mg/dl Creatinine 1.83 H (0.6-1.2) mg/dl Est Cr Clr Drug Dosing Not Reportable Est GFR ( Amer) 28.7 Est GFR (Non-Af Amer) 24.7 BUN/Creatinine Ratio 35.7 H (10-20) Glucose 137 H (70-99) mg/dl Lactate (0.4-2.0) mmol/L Calcium 9.9 (8.5-10.1) mg/dl Magnesium 2.8 H (1.8-2.4) mg/dl Total Bilirubin 0.4 (0.2-1) mg/dl AST 45 H (15-37) U/L ALT 21 (12-78) U/L Alkaline Phosphatase 352 H (45-117) U/L Troponin I < 0.015 (0-0.045) ng/ml C-Reactive Protein 2.25 H (0-0.29) mg/dl Total Protein 9.2 H (6.4-8.2) gm/dl Albumin 3.0 L (3.4-5.0) gm/dl Globulin 6.2 H (2.5-4.0) gm/dl Albumin/Globulin Ratio 0.5 L (0.9-2) Lipase 52 L (73-393) U/L Procalcitonin 0.05 (0-0.5) ng/ml TSH 2.160 (0.300-4.500) uIu/ml Urine Color Urine Appearance (Clear) Urine pH (4.5-7.5) Ur Specific [place] (1.000-1.030) Urine Protein (Negative) Urine Glucose (UA) (Negative) Urine Ketones (Negative) Urine Blood (Negative) Urine Nitrite (Negative) Urine Bilirubin (Negative) Urine Urobilinogen (Negative) Ur Leukocyte Esterase (Negative) 05/05/19 05/05/19 Range/Units 16:28 18:20 WBC (4.8-10.8) K/uL RBC (4.2-5.4) M/uL Hgb (12.0-16.0) g/dL Hct (37-47) % MCV (80-100) fL MCH (25-34) pg MCHC (32-36) g/dL RDW Std Deviation (36.4-46.3) fL RDW Coeff of Ean (11.5-14.5) % Plt Count (130-400) K/uL MPV (7.4-10.4) fL Immature Gran % (Auto) % Neut % (Auto) % Lymph % (Auto) % Sequoyah % (Auto) % Eos % (Auto) % Baso % (Auto) % Immature Gran # (Auto) (0.00-0.02) K/uL Neut # (Auto) (1.4-6.5) K/uL Lymph # (Auto) (1.2-3.4) K/uL Sequoyah # (Auto) (0.11-0.59) K/uL Eos # (Auto) (0-0.5) K/uL Baso # (Auto) (0-0.2) K/uL ESR (0-21) mm/hr PT (9.0-12.0) Seconds INR (0.9-1.1) APTT (21.0-31.0) Seconds PTT Ratio VBG pH 7.33 L (7.36-7.41) VBG pCO2 76 H (38-50) mmHg VBG pO2 25 mmHg VBG HCO3 39 mmol/L VBG O2 Saturation < 60.0 % VBG Base Excess 9.8 mEq/L Barometric Pressure 739.4 mm/Hg Sodium (136-145) mmol/L Potassium (3.5-5.1) mmol/L Chloride (98-107) mmol/L Carbon Dioxide (21-32) mmol/L Anion Gap (3-11) BUN (7-18) mg/dl Creatinine (0.6-1.2) mg/dl Est Cr Clr Drug Dosing Est GFR ( Amer) Est GFR (Non-Af Amer) BUN/Creatinine Ratio (10-20) Glucose (70-99) mg/dl Lactate (0.4-2.0) mmol/L Calcium (8.5-10.1) mg/dl Magnesium (1.8-2.4) mg/dl Total Bilirubin (0.2-1) mg/dl AST (15-37) U/L ALT (12-78) U/L Alkaline Phosphatase (45-117) U/L Troponin I (0-0.045) ng/ml C-Reactive Protein (0-0.29) mg/dl Total Protein (6.4-8.2) gm/dl Albumin (3.4-5.0) gm/dl Globulin (2.5-4.0) gm/dl Albumin/Globulin Ratio (0.9-2) Lipase (73-393) U/L Procalcitonin (0-0.5) ng/ml TSH (0.300-4.500) uIu/ml Urine Color Yellow Urine Appearance Clear (Clear) Urine pH 5.5 (4.5-7.5) Ur Specific [place] 1.012 (1.000-1.030) Urine Protein Negative (Negative) Urine Glucose (UA) Negative (Negative) Urine Ketones Negative (Negative) Urine Blood Negative (Negative) Urine Nitrite Negative (Negative) Urine Bilirubin Negative (Negative) Urine Urobilinogen Negative (Negative) Ur Leukocyte Esterase Negative (Negative) Imaging Data Radiologist's Impression: Radiology results as stated below per my review and the radiologist's interpretation: XR chest 1V portable CLINICAL HISTORY: 83 years-old Female presenting with Sepsis. TECHNIQUE: Portable upright AP view of the chest was obtained. COMPARISON: 04/03/2019. FINDINGS: Left subclavian pacer with leads in the right atrium and right ventricular apex. Median sternotomy wires. Several overlying external leads also noted. Atherosclerosis of the aortic arch. Cardiac silhouette moderately enlarged as on prior. Mediastinal surgical clips noted along the left heart border. Pulmonary vascular prominence. Interstitial prominence worsened from prior. Interval development of patchy basilar predominant opacities new from prior. No large effusion or pneumothorax. Osteopenia. Degenerative changes of the spine. Upper abdomen normal. IMPRESSION: 1. Cardiomegaly with interval development of advanced congestive change and mild to moderate pulmonary edema. Aspiration or infection could appear similarly. Electronically signed by: Truong Lu M.D. 05/05/2019 4:[address] head/brain wo con CLINICAL HISTORY: 83 years-old Female presenting with weak, hypothermia, altered mental status. TECHNIQUE: Multidetector CT imaging of the head was performed without the use of intravenous contrast. IV contrast: None. One or more dose lowering techniques were used consistent with the principles of ALARA (as low as reasonably achievable), including automatic exposure control, mA or kV adjustment to individual patient size, and/or use of iterative reconstruction. COMPARISON: None. CT DOSE (mGy.cm): The estimated cumulative dose is 537.48 mGy.cm. FINDINGS: Change Room Attendant topogram: The patient is edentulous. Proportional ventricular and sulcal prominence, likely age-related parenchymal volume loss. No hemorrhage. 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 No acute territorial infarct. No mass effect or midline shift. No extra-axial fluid collection. Paranasal sinuses and mastoid air cells clear. Calvarium intact. Soft tissue in the right external auditory canal likely cerumen. IMPRESSION: 1. 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 2. No acute intracranial pathology. Electronically signed by: Truong Lu M.D. 05/05/2019 4:42 PM KUB HISTORY: Acute abdominal distention distended abd COMPARISON: Chest radiograph of same day, CT abdomen and pelvis 09/11/2018 FINDINGS: The bowel gas pattern is non-obstructive. Moderate fecal distention of the rectum. Surgical suture material projects over the right midabdomen. Mild gaseous distention of the stomach. There is no organomegaly. No renal calculi. No ureteral calculi. No pneumoperitoneum or pneumatosis. Demineralized appearance the bones with degenerative changes of the hips, pelvis and spine. Intertrochanteric nail with medullary taryn of the right femur. Heterotopic ossifications are noted superior to the right femoral neck. No fracture. IMPRESSION: Nonobstructive bowel gas pattern. Electronically signed by: Jamie Ahumada M.D. 05/05/2019 4:20 PM ECG Data Attestation: I personally reviewed and interpreted this ECG as follows: Indication: + other (hypothermia) Rate (beats per minute): 61 Rhythm: + other (dual chamber pace maker, no [place] beats noted) ECG Findings: no PVCs Comparison ECG Date: from (04/04/19) Change: no significant change Blood Pressure Blood Pressure Findings: Low blood pressure Blood Pressure Disposition: further management by hospitalist [facility] Abigail The patient is an 83-year-old female who presented to the emergency department for an evaluation of hypothermia. The patient has had similar symptoms in the past. The patient presented to the emergency department with low blood pressure as well as hypothermia. For this reason a septic work-up was undertaken. The patient was treated with IV fluids and IV antibiotics. She was reevaluated multiple times. No definite source for her infection could be found. I discussed the patient's laboratory and radiographic studies with her and her family member. I also discussed other possible causes for the patient's presentation including thyroid issues as well as central nervous system issues. Ultimately the patient was feeling somewhat improved on reevaluation. I discussed her case with the on-call [facility] hospitalist group. They have agreed to evaluate the patient in the emergency department for further management disposition. Discharge Problem: Hypothermia Qualifiers: Encounter type: subsequent encounter Qualified Code(s): T68.XXXD - Hypothermia, subsequent encounter Hypotension Qualifiers: Hypotension type: unspecified hypotension type Qualified Code(s): I95.9 - Hyp otension, unspecified The scribe's documentation has been prepared under my direction and personally reviewed by me in its entirety. I confirm that the note above accurately reflects all work, treatment, procedures, and medical decision making performed by me.
--- NOTE | 2019-05-05 16:44 | CT Scan Report ---
CT head/brain wo con CLINICAL HISTORY: 83 years-old Female presenting with weak, hypothermia, altered mental status. TECHNIQUE: Multidetector CT imaging of the head was performed without the use of intravenous contrast . IV contrast: None. One or more dose lowering techniques were used consistent with the principles of ALARA (as low as reasonably achievable), including automatic exposure control, mA or kV adjustment t o individual patient size, and/or use of iterative reconstruction. COMPARISON: None. CT DOSE (mGy.cm): The estimated cumulative dose is 537.48 mGy.cm. 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 Proportional ventricular and sulcal prominence, likely age-related parenchymal volume loss. No hemorr sabiha. 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 No acute territorial infarct. No mass e ffect or midline shift. No extra-axial fluid collection. Paranasal sinuses and mastoid air cells dao r. Calvarium intact. Soft tissue in the right external auditory canal likely cerumen. IMPRESSION: 1. 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 2. No acute intracranial pathology. Electronically signed by: Truong Lu M.D. 05/05/2019 4:42 PM
[2019-05-05 16:50] LABS: Basophils # (auto) 0.01 K/uL (0-0.2); Basophils % (auto) 0.2 %; Eosinophils % (auto) 2.2 %; Hematocrit (blood only) 30.5 % (37-47); Hemoglobin 9.4 g/dL (12.0-16.0); Immature Granulocytes # (auto) 0.01 K/uL (0.00-0.02); Immature Granulocytes % (auto) 0.2 %; Lymphocytes # (auto) 0.72 K/uL (1.2-3.4); Lymphocytes % (auto) 15.7 %; Mean Corpuscular Hemoglobin 32.3 pg (25-34); Mean Corpuscular Hgb Conc 30.8 g/dL (32-36); Mean Corpuscular Volume 104.8 fL (80-100); Monocytes # (auto) 0.21 K/uL (0.11-0.59); Monocytes % (auto) 4.6 %; Neutrophils # (auto) 3.55 K/uL (1.4-6.5); Neutrophils % (auto) 77.1 %; Platelet Count 190 K/uL (130-400); RDW Coefficient of Variation 18.9 % (11.5-14.5); RDW Standard Deviation 73.5 fL (36.4-46.3); Red Blood Count 2.91 M/uL (4.2-5.4)
[2019-05-05 16:52] LABS: Base Excess VBG 9.8 mEq/L; HCO3 VBG 39 mmol/L; PCO2 VBG 76 mmHg (38-50); PO2 VBG 25 mmHg; pH VBG 7.33 (7.36-7.41)
[2019-05-05 16:55] LABS: Oxygen Saturation VBG < 60.0 %
[2019-05-05 16:58] LABS: INR 1.2 (0.9-1.1); Partial Thromboplastin Time 27.9 Seconds (21.0-31.0)
[2019-05-05 17:11] LABS: Alanine Aminotransferase 21 U/L (12-78); Aspartate Aminotransferase 45 U/L (15-37); BUN Creatinine Ratio 35.7 (10-20); Blood Urea Nitrogen 65 mg/dl (7-18); C Reactive Protein 2.25 mg/dl (0-0.29); Calcium 9.9 mg/dl (8.5-10.1); Carbon Dioxide 36 mmol/L (21-32); Chloride 100 mmol/L (98-107); Est GFR (African American) 28.7; Est GFR (Non-African American) 24.7; Glucose 137 mg/dl (70-99); Lipase 52 U/L (73-393); Magnesium 2.8 mg/dl (1.8-2.4); Potassium 5.1 mmol/L (3.5-5.1); Sodium 140 mmol/L (136-145)
[2019-05-05 17:19] LABS: Albumin Globulin Ratio 0.5 (0.9-2); Alkaline Phosphatase 352 U/L (45-117); Bilirubin,Total 0.4 mg/dl (0.2-1); Globulin 6.2 gm/dl (2.5-4.0); Total Protein 9.2 gm/dl (6.4-8.2); Troponin I < 0.015 ng/ml (0-0.045)
[2019-05-05 18:26] LABS: Appearance Urine Clear (Clear); Bilirubin Urine Negative (Negative); Blood Urine Negative (Negative); Color Urine Yellow; Glucose Urine UA Negative (Negative); Ketones Urine Negative (Negative); Leukocyte Esterase Urine Negative (Negative); Nitrite Urine Negative (Negative); Protein Urine Negative (Negative); Specific Gravity Urine 1.012 (1.000-1.030); Urobilinogen Urine Negative (Negative); pH Urine 5.5 (4.5-7.5)
[2019-05-05] MEDS ORDERED: PIPERACILL/TAZOBAC CONSULT ACTIVE PRN ×2 (18:31→20:47)
[2019-05-05] MEDS ORDERED: PIPERACILLIN/TAZOBACTAM 4.5 GM/120 ML BAG IV ONE (18:31)
[2019-05-05] MEDS ORDERED: VANCOMYCIN HCL 2,750 MG in SODIUM CHLORIDE 0.9% 500 ML IV ONE (20:05)
[2019-05-05] MEDS ORDERED: VANCOMYCIN CONSULT ACTIVE PRN (20:05)
--- NOTE | 2019-05-05 20:55 | History & Physical Report ---
Date of Service May 05, 2019 Assessment & Plan (1) Aspiration pneumonia: Placed on IV antibiotics Zyvox and Zosyn, due to chronic kidney disease try to avoid vancomycin. Duonebs every 4 hours while awake and every 2 hours when necessary. Oxygen titrated to keep pulse ox 92 to 94%. Consult speech therapy Present on Admission?: Yes (2) Hypothermia: Recurrent hypothermia- May be secondary to infection, secondary to incompletely optimized thyroid disorder, may be associated with additional autoimmune disorders such as adrenal insufficiency which may be tested for, and others Present on Admission?: Yes (3) Hypoxia: Secondary to aspiration pneumonia Present on Admission?: Yes (4) Chronic kidney disease (CKD) stage G4/A1, severely decreased glomerular filtration rate (GFR) between 15-29 mL/min/1.73 square meter and albuminuria creatinine ratio less than 30 mg/g: Creatinine is mildly improved 1.83 from her baseline in the twos. Follow serially Present on Admission?: Yes (5) Hypercholesterolemia: Hold atorvastatin until cleared by speech therapy Present on Admission?: Yes (6) Dysphagia: Consult speech therapy. Patient has been started on Parkinson's medications without diagnosis of Parkinson's officially, may be secondary to. Present on Admission?: Yes (7) Hypothyroidism (acquired): Resume levothyroxine 125 mcg daily once cleared by speech therapy Present on Admission?: Yes History of Present Illness Chief Complaint: The patient is brought to the ED by her daughter with complaint of recurrent hypothermia. Primary Care Provider: Earnest Meyer MD The patient is an 83 yo female, discharged yesterday from rehab at [facility] following hospitalization from 04/04-04/09 for acute metabolic encephalopathy thought due to combination of UTI and aspiration pneumonia. The patient was seen by home health nursing today at home, was found to have a very low body temperature, and was referred into the ED for assessment. Daughter reports that the mother has had a loss of appetite, had difficulty ambulating even with her walker, has had persistent shaking of her left hand and has had constipation issues. The daughter also reports that her mother was given medications to help her swallowing difficulties, but was never told that that her mother had Parkinson's disease. The patient herself does not respond to questions that are asked, and the daughter serves as the principal source of HPI and review of systems. Allergies Allergy/AdvReac Type Severity Reaction Status Date / Time esomeprazole Allergy Unknown Verified 05/05/19 17:03 sulfamethoxazole Allergy Unknown Verified 05/05/19 17:03 [From Bactrim] trimethoprim [From Bactrim] Allergy Unknown Verified 05/05/19 17:03 Home Medications Home Medications Medication Instructions Recorded Confirmed Type acetaminophen 325 mg tablet 650 mg PO Q4H PRN #100 tab 01/22/19 05/05/19 Rx xnvkfogd-tjuzqhzg-iqqp 8 mg-folic 1 tab PO DAILY #30 tab 01/22/19 05/05/19 Rx ac 400 mcg-vit K 10 mcg chew tablet nitroglycerin 0.4 mg sublingual 0.4 mg SL Q5M PRN #25 tab 01/22/19 05/05/19 Rx tablet sennosides 8.6 mg-docusate sodium 2 tab PO BID PRN #120 tab 01/22/19 05/05/19 Rx 50 mg tablet cholecalciferol (vitamin D3) 5,000 5,000 units PO DAILY #30 cap 01/27/19 05/05/19 Rx unit capsule albuterol sulfate 90 mcg/actuation 2 puffs INH Q4H PRN #18 gm 01/28/19 05/05/19 Rx aerosol inhaler atorvastatin 20 mg tablet 20 mg PO QPM #90 tab 02/01/19 05/05/19 Rx ipratropium-albuterol 0.5 mg-3 3 ml INH Q6H PRN #180 ml 02/01/19 05/05/19 Rx mg(2.5 mg base)/3 mL nebulization soln ropinirole 0.25 mg tablet 0.25 mg PO TID #270 tab 02/23/19 05/05/19 Rx carbidopa 25 mg-levodopa 100 mg 1 tab PO TID tab 03/25/19 05/05/19 History tablet ondansetron 4 mg disintegrating 4 mg PO Q8H PRN #30 tab 04/01/19 05/05/19 Rx tablet Culturelle 1 cap PO DAILY 04/03/19 05/05/19 History scopolamine base [Transderm-Scop] 1 patch TD Q72H PRN #10 ea MDD 1 04/09/19 05/05/19 Rx docusate sodium 100 mg PO DAILY 05/05/19 05/05/19 History gabapentin 100 mg PO TID 05/05/19 05/05/19 History levothyroxine 125 mcg PO DAILY 05/05/19 05/05/19 History torsemide 40 mg PO DAILY 05/05/19 05/05/19 History Past Med/Surg History Medical History Anemia (Chronic) ASCVD (arteriosclerotic cardiovascular disease) (Acute) Aspiration pneumonitis (Acute) Atrioventricular block, Mobitz type 1, Wenckebach (Acute) Benign essential hypertension (Chronic) Cardiomyopathy, nonischemic (Acute) Chronic kidney disease (CKD) stage G4/A1, severely decreased glomerular filtration rate (GFR) between 15-29 mL/min/1.73 square meter and albuminuria creatinine ratio less than 30 mg/g (Chronic) CKD (chronic kidney disease) (Chronic) CKD (chronic kidney disease) (Acute) Decubitus ulcer of heel, stage 3 (Acute) Depression (Chronic) Diabetes mellitus with diabetic polyneuropathy (Acute) Diabetes mellitus with neurological manifestations, uncontrolled (Chronic) Diabetic retinopathy, nonproliferative (Chronic) Diabetic ulcer of left heel associated with type 2 diabetes mellitus, with fat layer exposed (Acute) DM II (diabetes mellitus, type II), controlled (Acute) Dysphagia (Acute) Elevated beta-2 microglobulin (Chronic) Encounter for diagnostic colonoscopy due to change in bowel habits (Acute) GERD (gastroesophageal reflux disease) (Acute) Heart block AV second degree (Chronic) High globulin level (Chronic) HTN (hypertension) (Acute) Hypercholesterolemia (Chronic) Hypertension, benign (Chronic) Hypotension (Acute) Hypothyroidism (Acute) Hypoxemia (Acute) Morbid obesity (Acute) Neuropathic ulcer of left heel (Acute) Non-rheumatic tricuspid valve insufficiency (Acute) Pacemaker (Acute) Pleural effusion associated with pulmonary infection (Acute) Pulmonary artery hypertension (Acute) Recurrent UTI (Acute) Right-sided heart failure (Acute) Sleep apnea (Acute) Stage 4 chronic kidney disease due to hypertension (Chronic) Stage III pressure ulcer of left heel (Acute) Supranuclear palsies, progressive (Acute) Traumatic wound (Acute) Venous insufficiency (Acute) Surgical History History of cholecystectomy (Acute) History of total abdominal hysterectomy and bilateral salpingo-oophorectomy (Acute) Hx of appendectomy (Acute) S/P CABG x 4 (Acute) Social History Preferred Language: Tanzanian Communication Ability: Impaired Communication Ability Comment: difficult to understand. doesnt answer some questions Communication Tools: Picture Board Visual Impairment: Limited Hearing Ability: Normal Fish Grader Required: No Beliefs That Will Affect Care: None marital status: / Current Living Situation: Family Current Living Situation Comment: lives with daughter current occupational status: retired Feels Safe at Home: Yes Safety Concerns: Feels Safe At This Time Smoking Status: Never smoker Second Hand Exposure: Yes ; Hx Alcohol Use: No Hx Substance Use: No Childhood Exposure to Second-Hand Smoke: Yes caffeine: No during the past year weight has: decreased > 10 lbs Dental Care, Regularly: Yes Physical Activity Frequency: Daily Sunscreen Use: Yes Do you think of yourself as: straight/heterosexual Sexual Activity: has been sexually active, but not for at least 12 months Review of Systems Review of Systems: As noted above. Physical Exam Physical Exam: The patient is awake, not responding, normocephalic and atraumatic, sitting upright in bed and in no acute distress. HEENT--PERRL, EOMI, mucous membranes and oropharynx dry. Neck--supple. No JVD. No bruits. Thyroid normal, trachea midline, no adenopathy. Heart--normal S1 and S2. No murmurs, rubs or gallops. Lungs--coarse breath sounds bilaterally, right greater than left Abdomen--normal bowel sounds and soft. Nontender. Nondistended. Extremities--no cyanosis or clubbing. No edema. Dermatologic--normal skin turgor, normal color Neurologic--cranial nerves II through XII grossly intact. Rheumatologic--normal range of motion. Psychiatric--flat affect Results & Data Vital Signs (Past 12 Hours) Vital Signs Temp Pulse Pulse Resp BP BP Pulse Ox 05/05/19 20:50 96.3 F L 66 18 110/42 L 100 05/05/19 20:05 18 95 05/05/19 20:00 64 18 89/52 L 86 L 05/05/19 19:32 93.9 F L 62 18 103/48 L 97 05/05/19 19:09 100 05/05/19 18:27 64 14 91/57 L 100 05/05/19 18:19 84 L 05/05/19 18:07 92.3 F L 100 05/05/19 17:41 60 14 90/55 L 100 05/05/19 17:30 60 14 85/51 L 100 05/05/19 17:00 15 90 05/05/19 16:40 65 14 100/63 82 L 05/05/19 16:39 149 H 05/05/19 16:13 62 22 98 05/05/19 16:00 19 127/73 05/05/19 15:47 90.7 F L 67 18 116/68 96 Laboratory Results Laboratory Results WBC 4.60 K/uL (4.8-10.8) L 05/05/19 16:28 RBC 2.91 M/uL (4.2-5.4) L 05/05/19 16:28 Hgb 9.4 g/dL (12.0-16.0) L 05/05/19 16:28 Hct 30.5 % (37-47) L 05/05/19 16:28 MCV 104.8 fL (80-100) H 05/05/19 16:28 MCH 32.3 pg (25-34) 05/05/19 16:28 MCHC 30.8 g/dL (32-36) L 05/05/19 16:28 RDW Std Deviation 73.5 fL (36.4-46.3) H 05/05/19 16:28 RDW Coeff of Ean 18.9 % (11.5-14.5) H 05/05/19 16:28 Plt Count 190 K/uL (130-400) 05/05/19 16:28 MPV 11.0 fL (7.4-10.4) H 05/05/19 16:28 Immature Gran % (Auto) 0.2 % 05/05/19 16:28 Neut % (Auto) 77.1 % 05/05/19 16:28 Lymph % (Auto) 15.7 % 05/05/19 16:28 Cedar % (Auto) 4.6 % 05/05/19 16:28 Eos % (Auto) 2.2 % 05/05/19 16:28 Baso % (Auto) 0.2 % 05/05/19 16:28 Immature Gran # (Auto) 0.01 K/uL (0.00-0.02) 05/05/19 16: Neut # (Auto) 3.55 K/uL (1.4-6.5) 05/05/19 16: Lymph # (Auto) 0.72 K/uL (1.2-3.4) L 05/05/19 16: Cedar # (Auto) 0.21 K/uL (0.11-0.59) 05/05/19 16: Eos # (Auto) 0.10 K/uL (0-0.5) 05/05/19 16: Baso # (Auto) 0.01 K/uL (0-0.2) 05/05/19 16: ESR > 90 mm/hr (0-21) H 05/05/19 16: PT 12.0 Seconds (9.0-12.0) 05/05/19 16: INR 1.2 (0.9-1.1) H 05/05/19 16: APTT 27.9 Seconds (21.0-31.0) 05/05/19 16: PTT Ratio 1.0 05/05/19 16: VBG pH 7.33 (7.36-7.41) L 05/05/19 16: VBG pCO2 76 mmHg (38-50) H 05/05/19 16: VBG pO2 25 mmHg 05/05/19 16: VBG HCO3 39 mmol/L 05/05/19 16: VBG O2 Saturation < 60.0 % 05/05/19 16: VBG Base Excess 9.8 mEq/L 05/05/19 16: Barometric Pressure 739.4 mm/Hg 05/05/19 16: Sodium 140 mmol/L (136-145) 05/05/19 16: Potassium 5.1 mmol/L (3.5-5.1) 05/05/19 16: Chloride 100 mmol/L (98-107) 05/05/19 16: Carbon Dioxide 36 mmol/L (21-32) H 05/05/19 16: Anion Gap 4.0 (3-11) 05/05/19 16: BUN 65 mg/dl (7-18) H 05/05/19 16:28 Creatinine 1.83 mg/dl (0.6-1.2) H 05/05/19 16:28 Est Cr Clr Drug Dosing Not Reportable 05/05/19 16:28 Est GFR ( Amer) 28.7 05/05/19 16:28 Est GFR (Non-Af Amer) 24.7 05/05/19 16:28 BUN/Creatinine Ratio 35.7 (10-20) H 05/05/19 16:28 Glucose 137 mg/dl (70-99) H 05/05/19 16:28 Lactate 2.0 mmol/L (0.4-2.0) 05/05/19 16:28 Calcium 9.9 mg/dl (8.5-10.1) 05/05/19 16:28 Magnesium 2.8 mg/dl (1.8-2.4) H 05/05/19 16:28 Total Bilirubin 0.4 mg/dl (0.2-1) 05/05/19 16:28 AST 45 U/L (15-37) H 05/05/19 16:28 ALT 21 U/L (12-78) 05/05/19 16:28 Alkaline Phosphatase 352 U/L (45-117) H 05/05/19 16:28 Troponin I < 0.015 ng/ml (0-0.045) 05/05/19 16:28 C-Reactive Protein 2.25 mg/dl (0-0.29) H 05/05/19 16:28 Total Protein 9.2 gm/dl (6.4-8.2) H 05/05/19 16:28 Albumin 3.0 gm/dl (3.4-5.0) L 05/05/19 16:28 Globulin 6.2 gm/dl (2.5-4.0) H 05/05/19 16:28 Albumin/Globulin Ratio 0.5 (0.9-2) L 05/05/19 16: Lipase 52 U/L (73-393) L 05/05/19 16:28 Procalcitonin 0.05 ng/ml (0-0.5) 05/05/19 16:28 TSH 2.160 uIu/ml (0.300-4.500) 05/05/19 16:28 Urine Color Yellow 05/05/19 18:20 Urine Appearance Clear (Clear) 05/05/19 18:20 Urine pH 5.5 (4.5-7.5) 05/05/19 18:20 Ur Specific [place] 1.012 (1.000-1.030) 05/05/19 18:20 Urine Protein Negative (Negative) 05/05/19 18:20 Urine Glucose (UA) Negative (Negative) 05/05/19 18:20 Urine Ketones Negative (Negative) 05/05/19 18:20 Urine Blood Negative (Negative) 05/05/19 18:20 Urine Nitrite Negative (Negative) 05/05/19 18:20 Urine Bilirubin Negative (Negative) 05/05/19 18:20 Urine Urobilinogen Negative (Negative) 05/05/19 18:20 Ur Leukocyte Esterase Negative (Negative) 05/05/19 18:20 Diagnostic Findings [place], [place] [phone] XRay Report Patient: MICKI ROLONdmramon Date: 05/05/19 MR#: [id number]: [address] [facility] Acct ID:[id number]: Date: [address] [place] [address] Zip: [place] [address] Age: 83Location: ED Sex: F Room/Bed: Att Phy:Diagnosis: LOW BODY TEMP, CONSTIPATION Dennise Phy: Earnest Meyer, MDService Date: 05/05/19 Fam Phy:Interpreting Phy: Truong Lu MD Admit Phy: Ordering Phy: Lester Francis DO cc: ~ XR chest 1V portable CLINICAL HISTORY: 83 years-old Female presenting with Sepsis. TECHNIQUE: Portable upright AP view of the chest was obtained. COMPARISON: 04/03/2019. FINDINGS: Left subclavian pacer with leads in the right atrium and right ventricular apex. Median sternotomy wires. Several overlying external leads also noted. Atherosclerosis of the aortic arch. Cardiac silhouette moderately enlarged as on prior. Mediastinal surgical clips noted along the left heart border. Pulmonary vascular prominence. Interstitial prominence worsened from prior. Interval development of patchy basilar predominant opacities new from prior. No large effusion or pneumothorax. Osteopenia. Degenerative changes of the spine. Upper abdomen normal. IMPRESSION: 1. Cardiomegaly with interval development of advanced congestive change and mild to moderate pulmonary edema. Aspiration or infection could appear similarly. Electronically signed by: Truong Lu M.D. 05/05/2019 4:20 PM Dictated: 05/05/198 Transcribed: 05/05/19 1618 [facility] [place] [phone] CT Scan Report Patient: Andrey ROLON Date: 05/05/19 MR#: [id number]: [address] Acct ID:[id number]: Date: 1935[facility] Zip: [place] [address] Age: 83Location: ED Sex: F Room/Bed: Att Phy:Diagnosis: LOW BODY TEMP, CONSTIPATION Dennise Phy: Earnest Meyer, PANTERAervleda Date: 05/05/19 Fam Phy:Interpreting Phy: Truong Lu MD Admit Phy: Ordering Phy: Lester Francis DO cc: ~ CT head/brain wo con CLINICAL HISTORY: 83 years-old Female presenting with weak, hypothermia, altered mental status. TECHNIQUE: Multidetector CT imaging of the head was performed without the use of intravenous contrast. IV contrast: None. One or more dose lowering techniques were used consistent with the principles of ALARA (as low as reasonably achievable), including automatic exposure control, mA or kV adjustment to individual patient size, and/or use of iterative reconstruction. COMPARISON: None. CT DOSE (mGy.cm): The estimated cumulative dose is 537.48 mGy.cm. 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 Proportional ventricular and sulcal prominence, likely age-related parenchymal volume loss. No hemorrhage. 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 No acute territorial infarct. No mass effect or midline shift. No extra-axial fluid collection. Paranasal sinuses and mastoid air cells clear. Calvarium intact. Soft tissue in the right external auditory canal likely cer umen. IMPRESSION: 1. 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 2. No acute intracranial pathology. Electronically signed by: Truong Lu M.D. 05/05/2019 4:42 PM Dictated: 05/05/19 1638 Transcribed: 05/05/19 1638 [phone] Report Patient: Andrey ROLON Date: 05/05/19 MR#: [id number]: [address] [facility] Acct ID:[id number]: Date: [address] [place] [address] Zip: [place] [address] Age: 83Location: ED Sex: F Room/Bed: Att Phy:Diagnosis: LOW BODY TEMP, CONSTIPATION Dennise Phy: Earnest Meyer MDService Date: 05/05/19 Fam Phy:Interpreting Phy: Macario Ahumada Admit Phy: Ordering Phy: Lester Francis, cc: ~ KUB HISTORY: Acute abdominal distention distended abd COMPARISON: Chest radiograph of same day, CT abdomen and pelvis 09/11/2018 FINDINGS: The bowel gas pattern is non-obstructive. Moderate fecal distention of the rectum. Surgical suture material projects over the right midabdomen. Mild gaseous distention of the stomach. There is no organomegaly. No renal calculi. No ureteral calculi. No pneumoperitoneum or pneumatosis. Demineralized appearance the bones with degenerative changes of the hips, pelvis and spine. Intertrochanteric nail with medullary taryn of the right femur. Heterotopic ossifications are noted superior to the right femoral neck. No fracture. IMPRESSION: Nonobstructive bowel gas pattern. Electronically signed by: Jamie Ahumada M.D. 05/05/2019 4:20 PM Dictated: 05/05/191618 Transcribed: 05/05/19 1619 [place], [place] [phone] CT Scan Report Patient: Andrey ROLON Date: 05/05/19 MR#: [id number]: [address] [facility] Acct ID:[id number]: Date: [address] [place] [address] Zip: [place] [address] Age: 83Location: 2S Sex: F Room/Bed: E218 Att Phy: Mark Amaya M.D.Diagnosis: ACUTE RESPIRATORY FAILURE W/ HYPOXIA,ASP PNEUMONIA Dennise Phy: Earnest Meyer MDService Date: 05/05/19 [facility] Phy:Interpreting Phy: Macario R Zita Admit Phy: Mark Amaya M.D. Ordering Phy: Mark Amaya M.D. cc: ~ CT chest wo con CT DOSE: 331.49 mGy.cm CLINICAL HISTORY: 83 years-old Female with ASPIRATION PNEUMONIA. Acute shortness of breath with aspiration pneumonia TECHNIQUE: Multiaxial CT images of the chest were performed without contrast. A dose lowering technique was utilized adhering to the principles of ALARA. COMPARISON: Chest radiograph 05/05/2019, chest CT 12/18/2014 FINDINGS: Heterogeneous thyroid. Left subclavian pacer. Moderate to marked cardiomegaly. No pericardial effusion. Extensive coronary arterial calcifications. Prior median sternotomy with CABG. Advanced calcified plaque of the thoracic aorta without aneurysm. Mildly dilated main pulmonary artery, 3.4 cm may reflect pulmonary arterial hypertension the appropriate clinical setting. Prominent and mildly enlarged supraclavicular, mediastinal and hilar lymph nodes are present. Supraclavicular lymph nodes measure up to 9 mm. Subcarinal adenopathy measures up to 2.4 x 1.6 cm. There are small bilateral pleural effusions. Pleural fluid loculated about the right major fissure is similar to the 12/18/2018 exam. Subpleural reticulation bilaterally with bibasilar linear consolidative opacities suggests fibrosis as noted on comparison study. There are patchy multifocal groundglass and alveolar opacities within the mid and lower lung zones bilaterally. Bilateral bronchial wall thickening. Mild intralobular septal thickening suggests a component of pulmonary edema. Bibasilar mucous plugging. Bibasilar centrilobular nodules are noted with a few additional scattered nodules measuring up to approximately 3 mm, likely infectious or inflammatory. Central airways appear patent. Mild wall thickening of the mid and distal esophagus, nonspecific. Diffuse body wall edema with mild mesenteric edema. Demineralized appearance the bones. Degenerative changes of the spine and shoulders. Bilateral glenohumeral joint effusions are likely on a degenerative basis. IMPRESSION: 1. Redemonstration of chronic reticular opacities compatible with interstitial lung disease. 2. Mid and lower lung zone patchy consolidative and groundglass opacities with centrilobular nodules suggests aspiration pneumonitis versus multifocal pneumonia. 3. Small pleural effusions with chronic bibasilar pleural thickening, similar to the 12/18/2018 exam. 4. Supraclavicular, mediastinal and hilar adenopathy also appears stable from prior. 5. Cardiomegaly with suggestion of mild pulmonary edema. 6. Dilated main pulmonary artery suggests pulmonary arterial hypertension in the appropriate clinical setting. Electronically signed by: Jamie Ahumada M.D. 05/05/2019 9:54 PM Dictated: 05/05/192144 Transcribed: 05/05/192144 Code Status & VTE Plan Code Status DO NOT RESUSCITATE VTE Prophylaxis Plan VTE Prophylaxis will be ordered: Yes PG Care Time/CCT Total # of Minutes Spent Total Time Spent with Patient: Total time spent is greater than 50% in coordination of care (as documented) at patient's floor/unit and/or counseling patient: (1) Hypothermia Encounter type: subsequent encounter Qualified Code(s): T68.XXXD - Hypothermia, subsequent encounter
--- NOTE | 2019-05-05 21:56 | CT Scan Report ---
CT chest wo con CT DOSE: 331.49 mGy.cm CLINICAL HISTORY: 83 years-old Female with ASPIRATION PNEUMONIA. Acute shortness of breath with aspi ration pneumonia TECHNIQUE: Multiaxial CT images of the chest were performed without contrast. A dose lowering techni que was utilized adhering to the principles of ALARA. COMPARISON: Chest radiograph 05/05/2019, chest CT 12/18/2014 FINDINGS: Heterogeneous thyroid. Left subclavian pacer. Moderate to marked cardiomegaly. No pericardial effusio n. Extensive coronary arterial calcifications. Prior median sternotomy with CABG. Advanced calcified plaque of the thoracic aorta without aneurysm. Mildly dilated main pulmonary artery, 3.[address] pulmonary arterial hypertension the appropriate clinical setting. Prominent and mildly enlarged redd praclavicular, mediastinal and hilar lymph nodes are present. Supraclavicular lymph nodes measure up to 9 mm. Subcarinal adenopathy measures up to 2.4 x 1.6 cm. There are small bilateral pleural effusio ns. Pleural fluid loculated about the right major fissure is similar to the 12/18/2018 exam. Subpleura l reticulation bilaterally with bibasilar linear consolidative opacities suggests fibrosis as noted o n comparison study. There are patchy multifocal groundglass and alveolar opacities within the mid and lower lung zones bilaterally. Bilateral bronchial wall thickening. Mild intralobular septal thickeni ng suggests a component of pulmonary edema. Bibasilar mucous plugging. Bibasilar centrilobular nodule s are noted with a few additional scattered nodules measuring up to approximately 3 mm, likely infect ious or inflammatory. Central airways appear patent. Mild wall thickening of the mid and distal esophagus, nonspecific. Diffuse body wall edema with mild mesenteric edema. Demineralized appearance the bones. Degenerative changes of the spine and shoulders . Bilateral glenohumeral joint effusions are likely on a degenerative basis. IMPRESSION: 1. Redemonstration of chronic reticular opacities compatible with interstitial lung disease. 2. Mid and lower lung zone patchy consolidative and groundglass opacities with centrilobular nodules suggests aspiration pneumonitis versus multifocal pneumonia. 3. Small pleural effusions with chronic bibasilar pleural thickening, similar to the 12/18/2018 exam. 4. Supraclavicular, mediastinal and hilar adenopathy also appears stable from prior. 5. Cardiomegaly with suggestion of mild pulmonary edema. 6. Dilated main pulmonary artery suggests pulmonary arterial hypertension in the appropriate clinical setting. Electronically signed by: Jamie Ahumada M.D. 05/05/2019 9:54 PM
[2019-05-05] MEDS ORDERED: LINEZOLID 600 MG/300 ML D5W IV SCH (23:00)
[2019-05-05] MEDS: LINEZOLID 600 MG/300 ML BAG IV SCH (23:16)
[2019-05-05] MEDS: ALBUMIN 25% 50 ML IV SCH ×2 (23:23→23:33)
[2019-05-05] MEDS: HEPARIN SOD 5,000 UNIT/0.5 ML VIAL SQ SCH (23:34)
[2019-05-05] MEDS: PIPERACILLIN/TAZOBACTAM 3.375 GM in DEXTROSE 5% 100 ML IV SCH (23:40)
[2019-05-05] MEDS: PATIENT'S HEIGHT AND/OR WEIGHT NEEDED SCH (23:40)
[2019-05-06] MEDS ORDERED: INFLUENZA ADMINISTRATION CHARGE ONE (00:30)
[2019-05-06] MEDS ORDERED: INFLUENZA VACCINE HIGH DOSE 65+ 0.5 ML SYR IM ONE (00:30)
[2019-05-06] MEDS: ALBUT/IPRATROP 3MG/0.5MG NEB 3 ML VIAL NEB SCH ×4 (06:58→19:08)
--- NOTE | 2019-05-06 08:01 | Infectious Disease Consult ---
Date of Consultation May 06, 2019 Assessment & Plan (1) Aspiration pneumonia: 83-year-old female admitted with hypothermia and hypoxia, with evidence of aspiration pneumonia on chest CT scan. Current treatment with Zyvox and Zosyn appropriate for now, especially has had previous infection with MRSA. MRSA nasal swab ordered. Length of IV antibiotics will be determined by culture results and clinical response. Will follow. (2) Hypothermia: History of Present Illness Reason for Consultation: Aspiration pneumonia Attending Physician: Mark Amaya MD History of Present Illness History obtained from medical records and medical staff as patient unable to provide adequate history. 83-year-old female with complicated medical history including diabetes mellitus, coronary artery disease, PAD, chronic kidney disease stage IV, hypertension, dysphasia with episodes of aspiration in the past, diabetic ulcer of heel with previous cultures positive for MRSA, hospitalized in March with acute mental status changes thought to be from urinary tract infection and possible aspiration, who was just discharged from rehab 1 found to have significant hypothermia, inability to eat, severe shaking of her left hand and hypoxia. Was brought back to the hospital, found to have evidence of aspiration pneumonia on chest x-ray and CT scan. She has been started empirically on Zyvox and Zosyn, blood cultures are pending. Procalcitonin level low. This morning she is still somewhat hypothermic and hypotensive but appears comfortable and in no acute distress. Allergies Allergy/AdvReac Type Severity Reaction Status Date / Time esomeprazole Allergy Unknown Verified 05/05/19 17:03 sulfamethoxazole Allergy Unknown Verified 05/05/19 17:03 [From Bactrim] trimethoprim [From Bactrim] Allergy Unknown Verified 05/05/19 17:03 Home Medications Home Medications Medication Instructions Recorded Confirmed Type acetaminophen 325 mg tablet 650 mg PO Q4H PRN #100 tab 01/22/19 05/05/19 Rx qdyhmdrv-rxuzsjgv-qelz 8 mg-folic 1 tab PO DAILY #30 tab 01/22/19 05/05/19 Rx ac 400 mcg-vit K 10 mcg chew tablet nitroglycerin 0.4 mg sublingual 0.4 mg SL Q5M PRN #25 tab 01/22/19 05/05/19 Rx tablet sennosides 8.6 mg-docusate sodium 2 tab PO BID PRN #120 tab 01/22/19 05/05/19 Rx 50 mg tablet cholecalciferol (vitamin D3) 5,000 5,000 units PO DAILY #30 cap 01/27/19 05/05/19 Rx unit capsule albuterol sulfate 90 mcg/actuation 2 puffs INH Q4H PRN #18 gm 01/28/19 05/05/19 Rx aerosol inhaler atorvastatin 20 mg tablet 20 mg PO QPM #90 tab 02/01/19 05/05/19 Rx ipratropium-albuterol 0.5 mg-3 3 ml INH Q6H PRN #180 ml 02/01/19 05/05/19 Rx mg(2.5 mg base)/3 mL nebulization soln ropinirole 0.25 mg tablet 0.25 mg PO TID #270 tab 02/23/19 05/05/19 Rx carbidopa 25 mg-levodopa 100 mg 1 tab PO TID tab 03/25/19 05/05/19 History tablet ondansetron 4 mg disintegrating 4 mg PO Q8H PRN #30 tab 04/01/19 05/05/19 Rx tablet Culturelle 1 cap PO DAILY 04/03/19 05/05/19 History scopolamine base [Transderm-Scop] 1 patch TD Q72H PRN #10 ea MDD 1 04/09/19 05/05/19 Rx docusate sodium 100 mg PO DAILY 05/05/19 05/05/19 History gabapentin 100 mg PO TID 05/05/19 05/05/19 History levothyroxine 125 mcg PO DAILY 05/05/19 05/05/19 History torsemide 40 mg PO DAILY 05/05/19 05/05/19 History Patient History Medical History Anemia (Chronic) ASCVD (arteriosclerotic cardiovascular disease) (Acute) Aspiration pneumonitis (Acute) Atrioventricular block, Mobitz type 1, Wenckebach (Acute) Benign essential hypertension (Chronic) Cardiomyopathy, nonischemic (Acute) Chronic kidney disease (CKD) stage G4/A1, severely decreased glomerular filtration rate (GFR) between 15-29 mL/min/1.73 square meter and albuminuria creatinine ratio less than 30 mg/g (Chronic) CKD (chronic kidney disease) (Chronic) CKD (chronic kidney disease) (Acute) Decubitus ulcer of heel, stage 3 (Acute) Depression (Chronic) Diabetes mellitus with diabetic polyneuropathy (Acute) Diabetes mellitus with neurological manifestations, uncontrolled (Chronic) Diabetic retinopathy, nonproliferative (Chronic) Diabetic ulcer of left heel associated with type 2 diabetes mellitus, with fat layer exposed (Acute) DM II (diabetes mellitus, type II), controlled (Acute) Dysphagia (Acute) Elevated beta-2 microglobulin (Chronic) Encounter for diagnostic colonoscopy due to change in bowel habits (Acute) GERD (gastroesophageal reflux disease) (Acute) Heart block AV second degree (Chronic) High globulin level (Chronic) HTN (hypertension) (Acute) Hypercholesterolemia (Chronic) Hypertension, benign (Chronic) Hypotension (Acute) Hypothyroidism (Acute) Hypothyroidism (acquired) Hypoxemia (Acute) Morbid obesity (Acute) Neuropathic ulcer of left heel (Acute) Non-rheumatic tricuspid valve insufficiency (Acute) Pacemaker (Acute) Pleural effusion associated with pulmonary infection (Acute) Pulmonary artery hypertension (Acute) Recurrent UTI (Acute) Right-sided heart failure (Acute) Sleep apnea (Acute) Stage 4 chronic kidney disease due to hypertension (Chronic) Stage III pressure ulcer of left heel (Acute) Supranuclear palsies, progressive (Acute) Traumatic wound (Acute) Venous insufficiency (Acute) Surgical History History of cholecystectomy (Acute) History of total abdominal hysterectomy and bilateral salpingo-oophorectomy (Acute) Hx of appendectomy (Acute) S/P CABG x 4 (Acute) Social History Preferred Language: Sinhala Communication Ability: Impaired Communication Ability Comment: difficult to understand. doesnt answer some questions Communication Tools: Picture Board Visual Impairment: Limited Hearing Ability: Normal Internet Marketer Required: No Beliefs That Will Affect Care: None marital status: / Current Living Situation: Family Current Living Situation Comment: lives with daughter current occupational status: retired Feels Safe at Home: Yes Safety Concerns: Feels Safe At This Time Smoking Status: Never smoker Second Hand Exposure: Yes ; Hx Alcohol Use: No Hx Substance Use: No Childhood Exposure to Second-Hand Smoke: Yes caffeine: No during the past year weight has: decreased > 10 lbs Dental Care, Regularly: Yes Physical Activity Frequency: Daily Sunscreen Use: Yes Do you think of yourself as: straight/heterosexual Sexual Activity: has been sexually active, but not for at least 12 months Review of Systems Review of Systems: Unobtainable due to cognitive status Physical Exam Constitutional: WD/WN, vitals as above comfortable; no acute distress Eyes: PERRL, conjunctivae normal, anicteric sclerae ENMT: external ear and nose normal, oropharynx normal Neck: trachea midline, no thyromegaly neck nontender Respiratory: normal respiratory effort; no respiratory distress and does not use accessory muscles Auscultation: + rhonchi Cardiovascular: Rate/Rhythm: regular rate and regular rhythm Heart Sounds: normal S1 and normal S2; no gallop, no murmur and no cardiac rub Vessels: normal peripheral pulses; no JVD Gastrointestinal (Abdomen): normal bowel sounds, soft, nontender, no hepatosplenomegaly Musculoskeletal: no cyanosis or clubbing, extremities motor strength 5/5 Spine: thoracic spine normal to inspection and lumbar spine normal to inspection; no cervical spinal tenderness Skin: no rashes, warm and dry normal turgor; no lesions Neurologic: moves all extremities and awake; no focal motor deficits and no meningeal signs Psychiatric: Orientation: alert, oriented to person and cooperative Lymphatic: no cervical or axillary lymphadenopathy no inguinal lymphadenopathy Results & Data Vital Signs (Past 12 Hours) Vital Signs Temp Pulse Pulse Resp BP BP BP 05/06/19 07:52 36.3 C L 63 18 93/59 L 05/06/19 07:02 63 18 05/06/19 04:20 36.4 C L 63 20 97/63 L 05/05/19 23:30 36.5 C 68 18 91/52 L 05/05/19 22:25 70 05/05/19 21:46 36.7 C 86 21 91/50 L 05/05/19 21:18 65 18 100/55 L 05/05/19 20:50 35.7 C L 66 18 110/42 L 05/05/19 20:05 18 05/05/19 20:00 64 18 89/52 L Pulse Ox 05/06/19 07:52 91 05/06/19 07:02 100 05/06/19 04:20 100 05/05/19 23:30 100 05/05/19 22:25 05/05/19 21:46 95 05/05/19 21:18 96 05/05/19 20:50 100 05/05/19 20:05 95 05/05/19 20:00 86 L Laboratory Results Short CBC 05/05/19 Range/Units 16:28 WBC 4.60 L (4.8-10.8) K/uL Hgb 9.4 L (12.0-16.0) g/dL Hct 30.5 L (37-47) % Plt Count 190 (130-400) K/uL BMP 05/05/19 16:28 Sodium 140 Potassium 5.1 Chloride 100 Carbon Dioxide 36 H BUN 65 H Creatinine 1.83 H Glucose 137 H Calcium 9.9 Cardiac Enzymes 05/05/19 Range/Units 16:28 Troponin I < 0.015 (0-0.045) ng/ml Liver Function 05/05/19 Range/Units 16:28 Total Bilirubin 0.4 (0.2-1) mg/dl AST 45 H (15-37) U/L ALT 21 (12-78) U/L Alkaline Phosphatase 352 H (45-117) U/L Albumin 3.0 L (3.4-5.0) gm/dl Urine 05/05/19 Range/Units 18:20 Urine Color Yellow Urine Appearance Clear (Clear) Urine pH 5.5 (4.5-7.5) Ur Specific Girard 1.012 (1.000-1.030) Urine Protein Negative (Negative) Urine Glucose (UA) Negative (Negative) Diagnostic Findings CT chest wo con CT DOSE: 331.49 mGy.cm CLINICAL HISTORY: 83 years-old Female with ASPIRATION PNEUMONIA. Acute shortness of breath with aspiration pneumonia TECHNIQUE: Multiaxial CT images of the chest were performed without contrast. A dose lowering technique was utilized adhering to the principles of ALARA. COMPARISON: Chest radiograph 05/05/2019, chest CT 12/18/2014 FINDINGS: Heterogeneous thyroid. Left subclavian pacer. Moderate to marked cardiomegaly. No pericardial effusion. Extensive coronary arterial calcifications. Prior median sternotomy with CABG. Advanced calcified plaque of the thoracic aorta without aneurysm. Mildly dilated main pulmonary artery, 3.4 cm may reflect pulmonary arterial hypertension the appropriate clinical setting. Prominent and mildly enlarged supraclavicular, mediastinal and hilar lymph nodes are present. Supraclavicular lymph nodes measure up to 9 mm. Subcarinal adenopathy measures up to 2.4 x 1.6 cm. There are small bilateral pleural effusions. Pleural fluid loculated about the right major fissure is similar to the 12/18/2018 exam. Sub pleural reticulation bilaterally with bibasilar linear consolidative opacities suggests fibrosis as noted on comparison study. There are patchy multifocal groundglass and alveolar opacities within the mid and lower lung zones bilaterally. Bilateral bronchial wall thickening. Mild intralobular septal thickening suggests a component of pulmonary edema. Bibasilar mucous plugging. Bibasilar centrilobular nodules are noted with a few additional scattered nodules measuring up to approximately 3 mm, likely infectious or inflammatory. Central airways appear patent. Mild wall thickening of the mid and distal esophagus, nonspecific. Diffuse body wall edema with mild mesenteric edema. Demineralized appearance the bones. Degenerative changes of the spine and shoulders. Bilateral glenohumeral joint ef fusions are likely on a degenerative basis. IMPRESSION: 1. Redemonstration of chronic reticular opacities compatible with interstitial lung disease. 2. Mid and lower lung zone patchy consolidative and groundglass opacities with centrilobular nodules suggests aspiration pneumonitis versus multifocal pneumonia. 3. Small pleural effusions with chronic bibasilar pleural thickening, similar to the 12/18/2018 exam. 4. Supraclavicular, mediastinal and hilar adenopathy also appears stable from prior. 5. Cardiomegaly with suggestion of mild pulmonary edema. 6. Dilated main pulmonary artery suggests pulmonary arterial hypertension in the appropriate clinical setting. Electronically signed by: Jamie Ahumada M.D. 05/05/2019 9:54 PM Dictated: 05/05/192144 Transcribed: 05/05/192144 PG Care Time/CCT Total # of Minutes Spent Total Time Spent with Patient: Total time spent is greater than 50% in coordination of care (as documented) at patient's floor/unit and/or counseling patient: (1) Hypothermia Encounter type: subsequent encounter Qualified Code(s): T68.XXXD - Hypothermia, subsequent encounter
[2019-05-06] MEDS: PIPERACILLIN/TAZOBACTAM 3.375 GM in DEXTROSE 5% 100 ML IV SCH ×2 (08:56→20:52)
[2019-05-06 10:41] LABS: Creatinine Clr Calc Pharmacy 17.7 ml/min; Est GFR (African American) 24.4; Est GFR (Non-African American) 21.1
[2019-05-06] MEDS: HEPARIN SOD 5,000 UNIT/0.5 ML VIAL SQ SCH ×2 (11:16→21:43)
[2019-05-06] MEDS: LINEZOLID 600 MG/300 ML BAG IV SCH ×2 (11:26→23:56)
--- NOTE | 2019-05-06 11:44 | Fluoroscopy Report ---
MODIFIED BARIUM SWALLOW CLINICAL HISTORY: establish safest diet COMPARISON STUDY: None. FLUOROSCOPY TIME: 2.9 minutes. TECHNIQUE: A modified barium swallow was performed in conjunction with Speech Pathology. The patient ingested varying consistencies of barium containing material. Video fluoroscopy was performed. FINDINGS: Extensive silent tracheal aspiration was noted with thin liquids, nectar thick liquids and honey thick liquids. There was penetration with pudding consistencies. AP transfer was diminished wit h crackers with paste. Premature spillage was noted. Vascular stent was incidentally noted within the neck. IMPRESSION: 1. Extensive silent tracheal aspiration with thin liquids, nectar thick liquids and honey thick liqui ds. 2. Full recommendations by speech pathology to follow. Electronically signed by: Dion Mcmahon M.D. 05/06/2019 11:43 AM
[2019-05-06] MEDS ORDERED: LACTATED RINGER'S 1,000 ML IV SCH (12:15)
--- NOTE | 2019-05-06 13:14 | Hospitalist Progress Note ---
Date of Service May 06, 2019 Assessment & Plan (1) Goals of care, counseling/discussion: Extensive discussion with the patient, daughter/POA [Salima], daughter [Rubi, over the phone], son [Rayshawn] regarding ongoing options since patient is a severe aspiration risk with multiple other comorbidities. She has had multiple hospitalizations over the last year with repeated aspiration pneumonia, last discharged from this facility on April 09, however was just discharged from [facility] on May 04 and was readmitted here the day after with recurrent aspiration pneumonia. Of note she was given additional antibiotic regimen at [facility] due to pneumonia better in addition. Rayshawn, her son, requested a GI consult to discuss the possibility of a PEG. Her daughters are significantly against this idea. They plan to discuss amongst themselves and willing to discuss as a family meeting with palliative care tomorrow after getting more information from gastroenterology. With regards to reversible medical conditions improving her dysphagia I feel these are limited given the ongoing progressive nature over multiple months of this condition with recurrent hospitalizations. Will try to optimize PSP and consult [facility] neurology, treat pneumonia, transfuse hemoglobin > 9, rehydrate with NG feeds in a.m. to avoid aspiration overnight, treat constipation. (2) Aspiration pneumonia: Placed on IV antibiotics Zyvox and Zosyn. Duonebs every 4 hours while awake and every 2 hours when necessary. See dysphagia below. (3) Dysphagia: Profound oropharyngeal dysphagia on video swallow. Speech recommending n.p.o. including medication, consider single ice chips for comfort. Mouth care PRN for comfort. Discussed with speech therapist over the phone. Will request prior speech video swallow at [place] for comparison as per her daughter's request. NG tube placed pending GI consult in order to restart her Parkinson's/PSP medications. Will continue on ropinirole and Sinemet as per home regimen. Despite not having her Sinemet or ropinirole today she is having no other overt signs of parkinsonism. Extensive secretions likely due to continuous aspiration. Previously treated with scopolamine patch and will continue this home medication. (4) Hypoxia: Aim O2 sats > 94% (5) Hypothermia: Recurrent hypothermia - suspect secondary to infection. Although possibly dysregulation related to progressive supranuclear palsy. TSH WNL, restarted on levothyroxine via IV as below Cortisol 10.5 (6) Chronic kidney disease (CKD) stage G4/A1, severely decreased glomerular filtration rate (GFR) between 15-29 mL/min/1.73 square meter and albuminuria creatinine ratio less than 30 mg/g: At baseline. (7) Hypothyroidism (acquired): Will replace home dose levothyroxine with IV 62.5 mg daily (8) CAD (coronary artery disease), [place] coronary artery: Status post four-vessel CABG. Not on antiplatelets due to previous GI bleed. No BB or ACEi/ARB due to orthostatic hypotension. Will hold atorvastatin as noncritical medication pending goals of care discussion. (9) Fecal retention: Suspect this is causing her left lower quadrant pain. Will start with suppositories, when NG tube placed will start MiraLAX. No nausea, vomiting and passing flatus with no obstruction seen on CT. (10) Central sleep apnea: Noted from prior documentation. We will continue to monitor on telemetry. (11) Right heart failure: Significant jugular venous distention. Without significant pulmonary edema or pleural effusions on chest x-ray. She is clinically dry, with very dry mucous membranes. Discharge weight 147lb, currently 144lb. suspect known right heart failure with associated pulmonary arterial hypertension secondary to chronic aspirations. Currently holding diuretics and IV fluids. (12) Anemia: Unclear cause. MCV likely elevated due to erythropoietin given by her substance abuse specialist. Will request notes from her [facility] substance abuse specialist in [place]. Will transfuse Hgb < 9, due to significant atherosclerotic disease and heart failure. (13) Elevated serum alkaline phosphatase level: Unclear etiology. CT abdomen pelvis - 80 mm right lobe hypodensity. (14) DVT prophylaxis: Due to unspecified anemia with history of severe GI bleed, will continue to hold off on chemical prophylaxis. Continue SCDs Subjective Revisited history with her daughter/POA (Salima) at bedside. She report sudden decline right after being discharged from rehabilitation with loss of balance, low body temperature. No choking or coughing on food. She reports diagnosis of progressive supranuclear palsy by her neurologist in [place] and willing to sign release to have these notes. Her swallowing has become progressively worse over a number of months. Even when discharged from here she was on another dose of antibiotics in rehabilitation. We discussed the extent of her aspirations and next choices to make. We called separately her son (Rayshawn) who requested GI consult to get more information about a PEG tube. In addition we called her other daughter (Rubi) who was mainly concerned about her getting fluid overloaded since this has happened on multiple occasions previously and was unsure whether her aspiration risk had really progressed since we do not have her report from [place] where she had it done previously. Review of Systems Review of Systems: All systems reviewed & are unremarkable except as noted in HPI & below Physical Exam Constitutional: WD/WN, vitals as above comfortable; no acute distress Eyes: normal pupil size ENMT: Mouth: + dry oral mucous membranes (very dry) constant thick white secretions Neck: trachea midline; neck nontender Respiratory: normal respiratory effort; no respiratory distress, no labored breathing, does not use accessory muscles and no cough Auscultation: + diminished lung sounds (bibasal) and + rhonchi (throughout) Cardiovascular: Rate/Rhythm: regular rate and regular rhythm Heart Sounds: normal S1, normal S2 and + murmur (systolic); no gallop and no cardiac rub Vessels: normal peripheral pulses; no JVD Extremities: normal capillary refill and + edema (2+ b/l) Gastrointestinal (Abdomen): Percussion/Palpation: + abdomen tender (mildly generalized, worse in LLQ) Musculoskeletal: Spine: no cervical spinal tenderness, no thoracic spinal tenderness and no lumbar spinal tenderness Skin: no rashes, warm and dry Neurologic: moves all extremities and awake; no focal motor deficits, no meningeal signs and not confused Speech / Cognition: + abnormal speech and + abnormal cognition Motor/Sensory: + tremor (mild LUE resting); no pronator drift and no sensory deficit Psychiatric: Orientation: alert and oriented x 3 Eye Contact: + fair eye contact Affect: euthymic affect Lymphatic: no cervical or axillary lymphadenopathy Results & Data Vital Signs (Past 12 Hours) Vital Signs Temp Pulse Resp BP BP Pulse Ox 05/06/19 11:35 79 19 95 05/06/19 11:12 97.3 F L 63 16 116/71 99 05/06/19 07:52 97.3 F L 63 18 93/59 L 91 05/06/19 07:02 63 18 100 05/06/19 04:20 97.5 F L 63 20 97/63 L 100 PG Care Time/CCT Total # of Minutes Spent Total Time Spent: 110 Total Time Spent with Patient: Total time spent is greater than 50% in coordination of care (as documented) at patient's floor/unit and/or counseling patient: (1) Anemia Anemia type: unspecified type Qualified Code(s): D64.9 - Anemia, unspecified (2) Dysphagia Dysphagia type: oropharyngeal phase Qualified Code(s): R13.12 - Dysphagia, oropharyngeal phase (3) Hypothermia Encounter type: subsequent encounter Qualified Code(s): T68.XXXD - Hypothermia, subsequent encounter (4) Aspiration pneumonia Aspiration pneumonia type: unspecified Laterality: bilateral Lung location: unspecified part of lung Qualified Code(s): J69.0 - Pneumonitis due to inhalation of food and vomit (5) Right heart failure Heart failure chronicity: chronic Qualified Code(s): I50.812 - Chronic right heart failure (6) Fecal retention Constipation type: slow transit constipation Qualified Code(s): K59.01 - Slow transit constipation
--- NOTE | 2019-05-06 14:22 | CT Scan Report ---
CT SCAN OF THE ABDOMEN AND PELVIS WITHOUT CONTRAST CLINICAL HISTORY: left sided pain, sepsis COMPARISON STUDY: CT angiography from [facility] performed August 2018 TECHNIQUE: CT scan of the abdomen and pelvis was performed from the lung bases to the proximal femurs . Images are reviewed in the axial, sagittal, and coronal planes. IV contrast was not administered fo r this examination. A dose lowering technique was utilized adhering to the principles of ALARA. CT DOSE: 890.93 mGycm FINDINGS: Lower chest: There are bilateral lower lung zone airspace opacities. There are trace pleural effusion s. Liver: There is an 18 mm right lobe hypodensity, slightly larger than on the prior August 2018 study Gallbladder: Not visualized and presumed surgically absent Spleen: Normal in size and attenuation. Pancreas: Atrophic. No mass is identified. Adrenal glands: There is mild left adrenal gland thickening Kidneys: The unenhanced kidneys are normal in size without hydronephrosis. There is no contour deform ing renal mass lesion. No renal calculi are identified. Bowel: There is dense contrast within several small bowel loops. There are no transition zones to ind icate bowel obstruction. There is fecal retention. The rectum measures 7.8 cm in diameter. There is m inimal perirectal edema. There is a right lower quadrant surgical anastomotic suture line. There is n o evidence of acute diverticulitis. Peritoneum: There is no free air. There is minimal ascites Vasculature: The abdominal aorta is normal in course and caliber. There are extensive atheromatous ch anges present within the aorta iliac and femoral vessels Adenopathy: None. Pelvic viscera: The uterus is either atrophic or surgically absent. Skeletal structures: There are soft tissue nodules within the anterior abdominal wall fat likely seco ndary to injection sites. There are multilevel degenerative changes present within the cervical spine IMPRESSION: 1. Technically difficult study to interpret 2. Trace bilateral pleural effusions with bilateral lower lung zone airspace opacities 3. Slight enlargement in a nonspecific 18 mm right lobe hepatic hypodensity 4. No evidence of bowel obstruction. No evidence of free air 5. No renal, ureteral, or bladder calculi identified 6. Fecal retention with mild rectal dilatation and minimal perirectal edema 7. Minimal ascites 8. Extensive atherosclerotic vascular disease Electronically signed by: Mode Garza M.D. 05/06/2019 2:21 PM
[2019-05-06] MEDS ORDERED: GLYCERIN ADULT 12 SUPP/BOX SUPP PR ONE (14:43)
[2019-05-06] MEDS ORDERED: Nursing to Pharmacy Communication ONE (15:36)
[2019-05-06] MEDS ORDERED: NYSTATIN POWDER 15GM BTL EXT PRN (15:43)
[2019-05-06 16:47] LABS: Basophils # (auto) 0.01 K/uL (0-0.2); Basophils % (auto) 0.2 %; Eosinophils # (auto) 0.09 K/uL (0-0.5); Eosinophils % (auto) 2.2 %; Hematocrit (blood only) 27.1 % (37-47); Hemoglobin 8.3 g/dL (12.0-16.0); Lymphocytes % (auto) 19.3 %; Mean Corpuscular Hemoglobin 32.4 pg (25-34); Mean Corpuscular Volume 105.9 fL (80-100); Mean Platelet Volume 10.3 fL (7.4-10.4); Monocytes # (auto) 0.27 K/uL (0.11-0.59); Monocytes % (auto) 6.5 %; Neutrophils # (auto) 2.97 K/uL (1.4-6.5); Neutrophils % (auto) 71.8 %; Nucleated RBC # (auto) 0.04 K/uL (0-0); Nucleated RBC % (auto) 0.9 %; Platelet Count 143 K/uL (130-400); RDW Coefficient of Variation 18.8 % (11.5-14.5); RDW Standard Deviation 73.1 fL (36.4-46.3); Red Blood Count 2.56 M/uL (4.2-5.4); White Blood Count 4.14 K/uL (4.8-10.8)
[2019-05-06] MEDS ORDERED: bisacodyL 10 MG SUPP PR ONE (17:00)
[2019-05-06 17:04] LABS: Albumin Level 2.8 gm/dl (3.4-5.0); Calcium 9.1 mg/dl (8.5-10.1); Creatinine Clr Calc Pharmacy 17.5 ml/min; Est GFR (Non-African American) 20.7; Magnesium 2.8 mg/dl (1.8-2.4); Potassium 5.1 mmol/L (3.5-5.1)
[2019-05-06 17:08] LABS: Albumin Globulin Ratio 0.6 (0.9-2); Bilirubin,Total 0.5 mg/dl (0.2-1); Globulin 4.9 gm/dl (2.5-4.0); Total Protein 7.7 gm/dl (6.4-8.2); Troponin I 0.015 ng/ml (0-0.045)
[2019-05-06 17:19] LABS: Mean Corpuscular Hgb Conc 30.6 g/dL (32-36)
[2019-05-06 17:46] LABS: Appearance Urine Clear (Clear); Bilirubin Urine Negative (Negative); Blood Urine Negative (Negative); Color Urine Yellow; Glucose Urine UA Negative (Negative); Ketones Urine Negative (Negative); Leukocyte Esterase Urine Negative (Negative); Nitrite Urine Negative (Negative); Protein Urine Negative (Negative); Specific Gravity Urine 1.017 (1.000-1.030); Urobilinogen Urine Negative (Negative); pH Urine 6.5 (4.5-7.5)
[2019-05-06] MEDS ORDERED: BUMETANIDE 1 MG in SYRINGE 0 ML IV STA (18:09)
[2019-05-06] MEDS ORDERED: ALBUT/IPRATROP 3MG/0.5MG NEB 3 ML VIAL INH PRN (18:13)
[2019-05-06] MEDS ORDERED: ACETAMINOPHEN 325 MG TAB PO PRN (18:13)
[2019-05-06] MEDS ORDERED: ALBUMIN 25% 50 ML with FUROSEMIDE 40 MG IV ONE (18:19)
[2019-05-06] MEDS ORDERED: SODIUM CHLORIDE 0.9% 250 ML IV PRN (18:19)
--- NOTE | 2019-05-06 18:21 | XRay Report ---
XR chest 1V portable HISTORY: 83 years-old Female short of breath acute shortness of breath COMPARISON: Chest radiograph 05/05/2019, CT abdomen and pelvis 05/06/2019 TECHNIQUE: Portable AP view of the chest FINDINGS: Cardiac silhouette is enlarged, unchanged. Calcified plaque of the thoracic aortic arch. Prior median sternotomy. Pulmonary vascular congestion. Unchanged left subclavian pacer. No pneumothorax. Trace p leural effusions with persistent bibasilar consolidative opacities. Interstitial coarsening is noted with patchy alveolar opacities also noted throughout the right upper lung. There is no significant ch donya from study dated 05/05/2018. IMPRESSION: 1. Cardiomegaly with unchanged pulmonary vascular congestion. 2. Trace pleural effusions with persistent bilateral mixed interstitial and alveolar opacities. The above report was generated using voice recognition software. It may contain grammatical, syntax o r spelling errors. Electronically signed by: Jamie Ahumada M.D. 05/06/2019 6:20 PM
[2019-05-06] MEDS ORDERED: SCOPOLAMINE 1.5 MG TDSY TD SCH (20:00)
[2019-05-06] MEDS ORDERED: GABAPENTIN 100 MG CAP PO SCH (21:00)
--- NOTE | 2019-05-06 21:06 | XRay Report ---
KUB HISTORY: NG tube placement. COMPARISON: KUB 05/05/2019. FINDINGS: The bowel gas pattern is unremarkable. There are no dilated loops of small bowel to suggest an obstruction. No renal calculi. No ureteral calculi. No pneumoperitoneum or pneumatosis. Pacemake r wires are noted. Trace bilateral pleural effusions. Nasogastric tube terminates below the diaphragm in the expected location of the stomach. Residual contrast within the colon. IMPRESSION: Nasogastric tube terminates in the stomach. Electronically signed by: Ashok Edouard M.D. 05/06/2019 9:04 PM
[2019-05-06] MEDS: GABAPENTIN 250 MG/5 ML 470 ML BTL NG SCH (21:11)
[2019-05-06] MEDS: CARBIDOPA/LEVODOPA 25/100MG TAB NG SCH (21:11)
[2019-05-06] MEDS: ROPINIROLE HCL 0.25 MG TABLET PO SCH (21:11)
[2019-05-06] MEDS: POLYETHYLENE (MIRALAX) 17 GM PACK NG SCH (21:17)
[2019-05-06] MEDS ORDERED: COUGH DROP (SUGAR FREE) LOZ 24 LOZ/1 BOX BUCCAL PRN (23:04)
[2019-05-06] MEDS ORDERED: CHLORASEPTIC 1.4% SOLN 180 ML BTL MT PRN (23:33)
[2019-05-07] MEDS: CHECK SCOPOLAMINE PATCH PLACEMENT SCH ×3 (00:03→15:59)
[2019-05-07] MEDS: ONDANSETRON INJ 2 MG/ML 2 ML VIAL IV PRN (01:48)
[2019-05-07] MEDS ORDERED: Nursing to Pharmacy Communication ONE ×2 (01:52→04:15)
[2019-05-07] MEDS ORDERED: GLUCOSE 10 TABS/TUBE PO PRN (04:08)
[2019-05-07] MEDS ORDERED: DEXTROSE 50% 50 ML SYRINGE IV PRN (04:08)
[2019-05-07] MEDS ORDERED: GLUCOSE 40% GEL 15 GM TUBE PO PRN (04:08)
[2019-05-07] MEDS ORDERED: CARBOHYDRATES FOR HYPOGLYCEMIA PO PRN (04:08)
[2019-05-07] MEDS ORDERED: GLUCAGON FOR INJ 1 MG VIAL SQ PRN (04:08)
[2019-05-07] MEDS: INSULIN ASPART 100 UNITS/ML 3 ML PEN SC SCH ×3 (06:21→18:23)
[2019-05-07] MEDS: ALBUT/IPRATROP 3MG/0.5MG NEB 3 ML VIAL NEB SCH (06:53)
[2019-05-07 07:00] LABS: Basophils # (auto) 0.01 K/uL (0-0.2); Basophils % (auto) 0.2 %; Eosinophils # (auto) 0.11 K/uL (0-0.5); Eosinophils % (auto) 2.6 %; Hemoglobin 9.3 g/dL (12.0-16.0); Lymphocytes # (auto) 0.68 K/uL (1.2-3.4); Mean Corpuscular Hemoglobin 32.1 pg (25-34); Mean Corpuscular Volume 103.4 fL (80-100); Mean Platelet Volume 11.4 fL (7.4-10.4); Monocytes # (auto) 0.36 K/uL (0.11-0.59); Monocytes % (auto) 8.5 %; Neutrophils # (auto) 3.09 K/uL (1.4-6.5); Neutrophils % (auto) 72.7 %; Nucleated RBC # (auto) 0.02 K/uL (0-0); Nucleated RBC % (auto) 0.5 %; Platelet Count 137 K/uL (130-400); RDW Coefficient of Variation 20.4 % (11.5-14.5); RDW Standard Deviation 76.9 fL (36.4-46.3); White Blood Count 4.25 K/uL (4.8-10.8)
[2019-05-07 07:24] LABS: Anisocytosis Present; Basophilic Stippling 1+; Target Cells 1+; Toxic Vacuolation 1+
[2019-05-07] MEDS ORDERED: INSULIN ASPART 100 UNITS/ML 3 ML PEN SC SCH (07:30)
[2019-05-07 07:35] LABS: Albumin Level 2.7 gm/dl (3.4-5.0); BUN Creatinine Ratio 26.7 (10-20); Calcium 8.8 mg/dl (8.5-10.1); Creatinine Clr Calc Pharmacy 15.8 ml/min; Est GFR (African American) 21.3; Est GFR (Non-African American) 18.4; Magnesium 2.9 mg/dl (1.8-2.4); Potassium 5.3 mmol/L (3.5-5.1)
[2019-05-07 07:40] LABS: Albumin Globulin Ratio 0.5 (0.9-2); Bilirubin,Total 0.5 mg/dl (0.2-1); Globulin 5.1 gm/dl (2.5-4.0); Total Protein 7.8 gm/dl (6.4-8.2)
[2019-05-07] MEDS: MULTI VIT W/MINERALS LIQUID 15 ML UDP PO SCH (08:28)
[2019-05-07] MEDS: HEPARIN SOD 5,000 UNIT/0.5 ML VIAL SQ SCH ×2 (08:29→20:21)
[2019-05-07] MEDS: CARBIDOPA/LEVODOPA 25/100MG TAB NG SCH ×3 (08:29→20:21)
[2019-05-07] MEDS: ROPINIROLE HCL 0.25 MG TABLET PO SCH ×3 (08:29→20:21)
[2019-05-07] MEDS: POLYETHYLENE (MIRALAX) 17 GM PACK NG SCH (08:45)
[2019-05-07] MEDS: GABAPENTIN 250 MG/5 ML 470 ML BTL NG SCH ×2 (08:45→12:58)
[2019-05-07] MEDS: PIPERACILLIN/TAZOBACTAM 3.375 GM in DEXTROSE 5% 100 ML IV SCH ×2 (08:45→20:08)
[2019-05-07] MEDS: LEVOTHYROXINE SODIUM 62.5 MCG in SYRINGE 0 ML IV SCH (08:46)
[2019-05-07] MEDS ORDERED: FLINTSTONES COMPLETE CHEWABLE TAB PO SCH (09:00)
[2019-05-07] MEDS ORDERED: NON-FORMULARY MEDICATION (Lactobacillus Rhamnosus Gg [Culturelle] 1 CAP) PO SCH (09:00)
--- NOTE | 2019-05-07 09:17 | Gastroenterology Progress Note ---
Date of Service May 07, 2019 Results & Data Vital Signs (Past 12 Hours) Vital Signs Temp Pulse Pulse Resp BP BP Pulse Ox 05/07/19 07:07 36.9 C 67 22 114/66 95 05/07/19 06:56 68 18 95 05/07/19 03:26 36.7 C 64 108/65 100 05/07/19 02:30 37.1 C 05/07/19 00:08 36.8 C 64 16 118/57 L 98 05/06/19 23:53 36.8 C 73 20 120/68 95 05/06/19 22:55 36.8 C 61 16 105/64 98 05/06/19 22:25 36.4 C L 64 16 110/67 97 05/06/19 22:10 36.4 C L 60 16 114/71 100 05/06/19 21:49 36.3 C L 61 16 107/72 100
--- NOTE | 2019-05-07 09:21 | Gastrointestinal Consultation ---
Date of Consultation May 07, 2019 Assessment & Plan (1) Dysphagia: Dysphagia with aspiration in an 83 yr old female with SNP, aspiration pneumonia. Dr. Degroot and I talked with the pt about PEG tubes, that we were asked to consider placing a tube, explained the procedure, that it could be done after her pneumonia improves next week and that it would be used to deliver nutrition, instead of eating/drinking by mouth. Pt asked questions such as, "would it be for the rest of my life," stated that it was "a big decision," and seemed to have a preference against feeding tube but was not clearly refusing. She asked if we would be doing it if she, "didn't want it," and we assured her that we would not do a procedure that she does not want. We encouraged her to think about the option and discuss with her family. We asked Ms. Lara who she would like us to speak to in her family and she responded, her daughter Salima. I called Salima who was driving to [facility]. We will talk when she arrives. Addendum, This morning, Salima (daughter), Dr. Humphreys, Myself the social [facility] human services case manager and the patient's son Rayshawn who was on speaker phone, talked at length regarding PEG tube insertion, risks (bleeding, leaking, infection, continued aspiration from reflux after insertion). We talked about her multiple health problems and that she has a progressive disease. I assured the pt and family that we will provide the PEG tube service if this is her wish, though not this week because of her active pneumonia. Neurology and hospice services have also been consulted to discuss options with pt and family. At this point, the pt and family would like more time to decide. We will visit with the pt again on Friday to see how she is doing and if there has been a decision. Present on Admission?: Yes Supervising Physician Co-Signing Physician Notes I saw and evaluated the patient. We are consulted for potential placement of a feeding tube due to recurrent aspiration pneumonia and failure on a speech pathology evaluation. The patient is somewhat short of breath today as she was recently admitted for recurrent pneumonia. We were able to have a long co nversation with the patient and described the feeding tube placement at great detail. Physical examination Elderly appearing female, mild distress No abdominal tenderness Impression: Patient with a history of recurrent aspiration pneumonia, feeding tube requested by internal medicine service. We did discuss the role of feeding tube placement with the patient and she is uncertain if she would like to pursue this at the present time. I would recommend that he continue with intravenous antibiotic coverage and we can certainly reevaluate the patient early next week to see if she and her family have made a decision about whether they want a feeding tube placed. History of Present Illness Attending Physician: Arturo Humphreys MD History of Present Illness Ms. Faraz Lara is an 83 yr old female with Supranuclear Palsy, CAD, S/P CABG and with with cardiac pacemaker (2018), carotid artery stenosis, Sleep apnea, GERD, DM-2,CKD-4 (baseline Cr 1.8, GFR 28), Colon cancer S/P surgery in 2009. She was brought to the ED with hypothermia and was found to have a spiration pneumonia (Ct with aspiration pneumonia vs. multifocal pneumonia). GI is consulted to consider PEG tube insertion. Video swallow here at [facility] on 05/06 with silent tracheal aspiration of thin, nectar and honey thick liquids. We were able to see the pt this morning though there were no family members present at the time. The patient seems awake, alert, oriented as evidenced by appropriate responses to questions though she is a bit slow to form her responses and slow in her speech, appearing to have increased effort to communicate. There is an NG in place for delivery of medications and pt mentions that it is uncomfortable. She has had previous GI care: She underwent EGD most recently in August 2018 at [place] for hematochezia with normal findings. Prior video swallow for dysp hagia at [facility] on 11/27/18 with delay in initiation of the swallow and lack of formation of bolus. There was laryngeal penetration of honey thick liquids and kobi aspiration of thin liquids. GI saw and evaluated the pt who declined PEG tube at that time. Speech path recommended puree/moderately thick liquid diet with pills being crushed. Allergies Allergy/AdvReac Type Severity Reaction Status Date / Time esomeprazole Allergy Unknown Verified 05/05/19 17:03 sulfamethoxazole Allergy Unknown Verified 05/05/19 17:03 [From Bactrim] trimethoprim [From Bactrim] Allergy Unknown Verified 05/05/19 17:03 Home Medications Home Medications Medication Instructions Recorded Confirmed Type acetaminophen 325 mg tablet 650 mg PO Q4H PRN #100 tab 01/22/19 05/05/19 Rx wxalmxfg-gzbawppo-[id number] 8 mg-folic 1 tab PO DAILY #30 tab 01/22/19 05/05/19 Rx ac 400 mcg-vit K 10 mcg chew tablet nitroglycerin 0.4 mg sublingual 0.4 mg SL Q5M PRN #25 tab 01/22/19 05/05/19 Rx tablet sennosides 8.6 mg-docusate sodium 2 tab PO BID PRN #120 tab 01/22/19 05/05/19 Rx 50 mg tablet cholecalciferol (vitamin D3) 5,000 5,000 units PO DAILY #30 cap 01/27/19 05/05/19 Rx unit capsule albuterol sulfate 90 mcg/actuation 2 puffs INH Q4H PRN #18 gm 01/28/19 05/05/19 Rx aerosol inhaler atorvastatin 20 mg tablet 20 mg PO QPM #90 tab 02/01/19 05/05/19 Rx ipratropium-albuterol 0.5 mg-3 3 ml INH Q6H PRN #180 ml 02/01/19 05/05/19 Rx mg(2.5 mg base)/3 mL nebulization soln ropinirole 0.25 mg tablet 0.25 mg PO TID #270 tab 02/23/19 05/05/19 Rx carbidopa 25 mg-levodopa 100 mg 1 tab PO TID tab 03/25/19 05/05/19 History tablet ondansetron 4 mg disintegrating 4 mg PO Q8H PRN #30 tab 04/01/19 05/05/19 Rx tablet Culturelle 1 cap PO DAILY 04/03/19 05/05/19 History scopolamine base [Transderm-Scop] 1 patch TD Q72H PRN #10 ea MDD 1 04/09/19 05/05/19 Rx docusate sodium 100 mg PO DAILY 05/05/19 05/05/19 History gabapentin 100 mg PO TID 05/05/19 05/05/19 History levothyroxine 125 mcg PO DAILY 05/05/19 05/05/19 History torsemide 40 mg PO DAILY 05/05/19 05/05/19 History Patient History Medical History Anemia (Chronic) ASCVD (arteriosclerotic cardiovascular disease) (Acute) Aspiration pneumonitis (Acute) Atrioventricular block, Mobitz type 1, Wenckebach (Acute) Benign essential hypertension (Chronic) Cardiomyopathy, nonischemic (Acute) Chronic kidney disease (CKD) stage G4/A1, severely decreased glomerular filtration rate (GFR) between 15-29 mL/min/1.73 square meter and albuminuria cre atinine ratio less than 30 mg/g (Chronic) CKD (chronic kidney disease) (Chronic) CKD (chronic kidney disease) (Acute) Decubitus ulcer of heel, stage 3 (Acute) Depression (Chronic) Diabetes mellitus with diabetic polyneuropathy (Acute) Diabetes mellitus with neurological manifestations, uncontrolled (Chronic) Diabetic retinopathy, nonproliferative (Chronic) Diabetic ulcer of left heel associated with type 2 diabetes mellitus, with fat layer exposed (Acute) DM II (diabetes mellitus, type II), controlled (Acute) Dysphagia (Acute) Elevated beta-2 microglobulin (Chronic) Encounter for diagnostic colonoscopy due to change in bowel habits (Acute) GERD (gastroesophageal reflux disease) (Acute) Heart block AV second degree (Chronic) High globulin level (Chronic) HTN (hypertension) (Acute) Hypercholesterolemia (Chronic) Hypertension, benign (Chronic) Hypotension (Acute) Hypothyroidism (Acute) Hypothyroidism (acquired) Hypoxemia (Acute) Morbid obesity (Acute) Neuropathic ulcer of left heel (Acute) Non-rheumatic tricuspid valve insufficiency (Acute) Pacemaker (Acute) Pleural effusion associated with pulmonary infection (Acute) Pulmonary artery hypertension (Acute) Recurrent UTI (Acute) Right-sided heart failure (Acute) Sleep apnea (Acute) Stage 4 chronic kidney disease due to hypertension (Chronic) Stage III pressure ulcer of left heel (Acute) Supranuclear palsies, progressive (Acute) Traumatic wound (Acute) Venous insufficiency (Acute) Surgical History History of cholecystectomy (Acute) History of total abdominal hysterectomy and bilateral salpingo-oophorectomy (Acute) Hx of appendectomy (Acute) S/P CABG x 4 (Acute) Social History Preferred Language: [place] Communication Ability: Impaired Communication Ability Comment: difficult to understand. doesnt answer some questions Communication Tools: Picture Board Visual Impairment: Limited Hearing Ability: Normal Nuclear Criticality Safety Engineer Required: No Beliefs That Will Affect Care: None marital status: / Current Living Situation: Family Current Living Situation Comment: lives with daughter current occupational status: retired Feels Safe at Home: Yes Safety Concerns: Feels Safe At This Time Smoking Status: Never smoker Second Hand Exposure: Yes ; Hx Alcohol Use: No Hx Substance Use: No Childhood Exposure to Second-Hand Smoke: Yes caffeine: No during the past year weight has: decreased > 10 lbs Dental Care, Regularly: Yes Physical Activity Frequency: Daily Sunscreen Use: Yes Do you think of yourself as: straight/heterosexual Sexual Activity: has been sexually active, but not for at least 12 months Review of Systems Review of Systems: ROS: Gen: + weakness, weight loss Eyes: No eye redness, or pain, no recent vision changes Resp: No SOB, no cough Cardio: No palpitations/irregular beats, no chest pain GI: No abdominal pain, no nausea/vomiting : Morrow in place. No blood in urine. Skin: No jaundice, itching or new rashes Physical Exam Constitutional: + thin Temp 36.0 this morning. Otherwise vitals stable. O2 sat at 95% on 3L by NC. Eyes: PERRL, conjunctivae normal, anicteric sclerae ENMT: external ear and nose normal, oropharynx normal Neck: trachea midline, no thyromegaly Respiratory: normal respiratory effort Auscultation: + crackles (Rt>left) Cardiovascular: RRR, no murmur, no edema Gastrointestinal (Abdomen): normal bowel sounds, soft, nontender, no hepatosplenomegaly Skin: no rashes, warm and dry no jaundice Neurologic: PERRL, EOMI, accommodation nl, no face palsy, no dysarthria Psychiatric: Orientation: alert Affect: euthymic affect Lymphatic: no cervical or axillary lymphadenopathy Results & Data Vital Signs (Past 12 Hours) Vital Signs Temp Pulse Pulse Resp BP BP Pulse Ox 05/07/19 07:07 36.9 C 67 22 114/66 95 05/07/19 06:56 68 18 95 05/07/19 03:26 36.7 C 64 108/65 100 05/07/19 02:30 37.1 C 05/07/19 00:08 36.8 C 64 16 118/57 L 98 05/06/19 23:53 36.8 C 73 20 120/68 95 05/06/19 22:55 36.8 C 61 16 105/64 98 05/06/19 22:25 36.4 C L 64 16 110/67 97 05/06/19 22:10 36.4 C L 60 16 114/71 100 05/06/19 21:49 36.3 C L 61 16 107/72 100 Diagnostic Findings Video Swallow on 05/06/19: 1. Extensive silent tracheal aspiration with thin liquids, nectar thick liquids and honey thick liquids. 2. Full recommendations by speech pathology to follow. CT abd/pelvis w/o contrast on 05/06/19: . Technically difficult study to interpret 2. Trace bilateral pleural effusions with bilateral lower lung zone airspace opacities 3. Slight enlargement in a nonspecific 18 mm right lobe hepatic hypodensity 4. No evidence of bowel obstruction. No evidence of free air 5. No renal, ureteral, or bladder calculi identified 6. Fecal retention with mild rectal dilatation and minimal perirectal edema 7. Minimal ascites 8. Extensive atherosclerotic vascular disease (1) Dysphagia Dysphagia type: oropharyngeal phase Qualified Code(s): R13.12 - Dysphagia, oropharyngeal phase
--- NOTE | 2019-05-07 09:52 | Palliative Care Consultation ---
Date of Consultation May 07, 2019 Assessment & Plan (1) Goals of care, counseling/discussion: -83 year old female patient with PMH progressive supranuclear palsy, anemia, ASCVD, aspiration pneumonia, htn, CKD stage IV, depression, DM, hypothyroidism, sleep apnea, CABG, and others, presented to the hospital with recurrent aspiration pneumonia. Patient was just recently in [facility] with aspiration in March, was discharged to [facility] for rehab, and was only home for a day before she had to come back to the hospital. Apparently while at [facility], patient continued to have issues with aspiration and was on abx during her stay there. During this admission, patient had a vide swallow study done, which she unfortunately failed miserably. Patient has silent aspiration with all consistencies. Now with recurrent hospital visits and progressive weakness, palliative care is consulted to discuss goals of care and help with medical decision making-- specifically regarding whether or not patient would want a PEG tube for feeding. -Met with patient multiple times today in room 218. She is oriented x4, does have a weak voice at times and is slow to answer questions. Does have dminhfn-pp-zfuc insight into her medical situation. Patient stated to me multiple times that she is undecided on whether or not she would want a feeding tube. -During second conversation when patient's daughter/ODELL Borrego at bedside, patient again said that she is undecided. Salima states that she knows how important eating is to her mother. We talked about the pros and cons of PEG tubes. Aspiration is not fixed with a PEG tube, but the oropharynx is obviously bypassed when receiving nutrition. PEG tubes usually do not provide comfort, but can sometimes prolong life in people who are otherwise functional. Given that patient has PSP, she has expected continued decline. So while she may have been quite functional and ambulating with walker prior to these hospitalizations, her recovery potential is uncertain. It comes down to what an acceptable quality of life is to the patient and what her preference is. -Given patient's rising creatinine and now days without nutrition, the hospitalist is going to start tube feedings via NG tube (coresafe). The plan is to see how the patient does over the weekend with the tube feedings and reconvene next week to make decision on PEG tube. If patient feels no different or dislikes the tube feeds and not eating/drinking by mouth, she might make the decision to transition to comfort measures. -We discussed either home with hospice or going to rehab again. Will all depend on hospital course and goals of care. -Palliative care will continue to follow. (2) Pseudobulbar palsy: (3) Aspiration pneumonia: Aspiration pneumonia type: unspecified Laterality: bilateral Lung location: unspecified part of lung Qualified Code(s): J69.0 - Pneumonitis due to inhalation of food and vomit (4) Right heart failure: Heart failure chronicity: chronic Qualified Code(s): I50.812 - Chronic right heart failure Supervising Physician Co-Signing Physician Notes Chart reviewed, patient seen and examined. Patient's daughter at bedside. Collaborated with ANAMARIA Toth Dr. present during part of my visit as well as attending physician Dr. Humphreys. PE: Patient arousable, doses off shortly HEENT: EOMI, NG tube in place Respirations unlabored CV regular rate, no edema Abdomen: Not distended Neuro: Dysphasia, weak voice Agree with above note, assessment and plan as per ANAMARIA Toth. Appreciate Dr. Mathew's input Will continue to follow and assist patient family with medical decision making History of Present Illness Attending Physician: Arturo Humphreys MD History of Present Illness This 83 year old female patient with PMH progressive supranuclear palsy, anemia, ASCVD, aspiration pneumonia, htn, CKD stage IV, depression, DM, hypothyroidism, sleep apnea, CABG, and others, presented to the hospital with recurrent aspiration pneumonia. Patient was just recently in [facility] with aspiration in March, was discharged to [facility] for rehab, and was only home for a day before she had to come back to the hospital. Apparently while at [facility], patient continued to have issues with aspiration and was on abx during her stay there. During this admission, patient had a vide swallow study done, which she unfortunately failed miserably. Patient has silent aspiration with all consistencies. Now with recurrent hospital visits and progressive weakness, palliative care is consulted to discuss goals of care and help with medical decision making-- specifically regarding whether or not patient would want a PEG tube for feeding. Thank you kindly for this consult. Palliative care team will follow as needed. Allergies Allergy/AdvReac Type Severity Reaction Status Date / Time esomeprazole Allergy Unknown Verified 05/05/19 17:03 sulfamethoxazole Allergy Unknown Verified 05/05/19 17:03 [From Bactrim] trimethoprim [From Bactrim] Allergy Unknown Verified 05/05/19 17:03 Home Medications Home Medications Medication Instructions Recorded Confirmed Type acetaminophen 325 mg tablet 650 mg PO Q4H PRN #100 tab 01/22/19 05/05/19 Rx pobutttd-ollxfrwc-ctja 8 mg-folic 1 tab PO DAILY #30 tab 01/22/19 05/05/19 Rx ac 400 mcg-vit K 10 mcg chew tablet nitroglycerin 0.4 mg sublingual 0.4 mg SL Q5M PRN #25 tab 01/22/19 05/05/19 Rx tablet sennosides 8.6 mg-docusate sodium 2 tab PO BID PRN #120 tab 01/22/19 05/05/19 Rx 50 mg tablet cholecalciferol (vitamin D3) 5,000 5,000 units PO DAILY #30 cap 01/27/19 05/05/19 Rx unit capsule albuterol sulfate 90 mcg/actuation 2 puffs INH Q4H PRN #18 gm 01/28/19 05/05/19 Rx aerosol inhaler atorvastatin 20 mg tablet 20 mg PO QPM #90 tab 02/01/19 05/05/19 Rx ipratropium-albuterol 0.5 mg-3 3 ml INH Q6H PRN #180 ml 02/01/19 05/05/19 Rx mg(2.5 mg base)/3 mL nebulization soln ropinirole 0.25 mg tablet 0.25 mg PO TID #270 tab 02/23/19 05/05/19 Rx carbidopa 25 mg-levodopa 100 mg 1 tab PO TID tab 03/25/19 05/05/19 History tablet ondansetron 4 mg disintegrating 4 mg PO Q8H PRN #30 tab 04/01/19 05/05/19 Rx tablet Culturelle 1 cap PO DAILY 04/03/19 05/05/19 History scopolamine base [Transderm-Scop] 1 patch TD Q72H PRN #10 ea MDD 1 04/09/19 05/05/19 Rx docusate sodium 100 mg PO DAILY 05/05/19 05/05/19 History gabapentin 100 mg PO TID 05/05/19 05/05/19 History levothyroxine 125 mcg PO DAILY 05/05/19 05/05/19 History torsemide 40 mg PO DAILY 05/05/19 05/05/19 History Patient History Medical History Anemia (Chronic) ASCVD (arteriosclerotic cardiovascular disease) (Acute) Aspiration pneumonitis (Acute) Atrioventricular block, Mobitz type 1, Wenckebach (Acute) Benign essential hypertension (Chronic) Cardiomyopathy, nonischemic (Acute) Chronic kidney disease (CKD) stage G4/A1, severely decreased glomerular filtration rate (GFR) between 15-29 mL/min/1.73 square meter and albuminuria creatinine ratio less than 30 mg/g (Chronic) CKD (chronic kidney disease) (Chronic) CKD (chronic kidney disease) (Acute) Decubitus ulcer of heel, stage 3 (Acute) Depression (Chronic) Diabetes mellitus with diabetic polyneuropathy (Acute) Diabetes mellitus with neurological manifestations, uncontrolled (Chronic) Diabetic retinopathy, nonproliferative (Chronic) Diabetic ulcer of left heel associated with type 2 diabetes mellitus, with fat layer exposed (Acute) DM II (diabetes mellitus, type II), controlled (Acute) Dysphagia (Acute) Elevated beta-2 microglobulin (Chronic) Encounter for diagnostic colonoscopy due to change in bowel habits (Acute) GERD (gastroesophageal reflux disease) (Acute) Heart block AV second degree (Chronic) High globulin level (Chronic) HTN (hypertension) (Acute) Hypercholesterolemia (Chronic) Hypertension, benign (Chronic) Hypotension (Acute) Hypothyroidism (Acute) Hypothyroidism (acquired) Hypoxemia (Acute) Morbid obesity (Acute) Neuropathic ulcer of left heel (Acute) Non-rheumatic tricuspid valve insufficiency (Acute) Pacemaker (Acute) Pleural effusion associated with pulmonary infection (Acute) Pulmonary artery hypertension (Acute) Recurrent UTI (Acute) Right-sided heart failure (Acute) Sleep apnea (Acute) Stage 4 chronic kidney disease due to hypertension (Chronic) Stage III pressure ulcer of left heel (Acute) Supranuclear palsies, progressive (Acute) Traumatic wound (Acute) Venous insufficiency (Acute) Surgical History History of cholecystectomy (Acute) History of total abdominal hysterectomy and bilateral salpingo-oophorectomy (Acute) Hx of appendectomy (Acute) S/P CABG x 4 (Acute) Social History Preferred Language: Lebanese Communication Ability: Impaired Communication Ability Comment: difficult to understand. doesnt answer some questions Communication Tools: Picture Board Visual Impairment: Limited Hearing Ability: Normal Packaging Engineer Required: No Beliefs That Will Affect Care: None marital status: / Current Living Situation: Family Current Living Situation Comment: lives with daughter current occupational status: retired Feels Safe at Home: Yes Safety Concerns: Feels Safe At This Time Smoking Status: Never smoker Second Hand Exposure: Yes ; Hx Alcohol Use: No Hx Substance Use: No Childhood Exposure to Second-Hand Smoke: Yes caffeine: No during the past year weight has: decreased > 10 lbs Dental Care, Regularly: Yes Physical Activity Frequency: Daily Sunscreen Use: Yes Do you think of yourself as: straight/heterosexual Sexual Activity: has been sexually active, but not for at least 12 months Review of Systems Review of Systems: Const: + weakness ENMT: No dysphagia, no choking during eating, occasionally feels like there is phlegm in her throat Resp: No SOB, no cough Cardio: No chest pain, no edema GI: No abdominal pain, no N/V MS: No musculoskeletal pain Neuro: No confusion, progressive weakness due to PSP Psych: No anxiety, no depression Physical Exam Constitutional: + ill appearing; no acute distress ENMT: external ear and nose normal, oropharynx normal Respiratory: normal respiratory effort; no labored breathing Cardiovascular: Rate/Rhythm: regular rate and regular rhythm Extremities: no edema Gastrointestinal (Abdomen): Inspection/Auscultation: normal bowel sounds Percussion/Palpation: abdomen soft; abdomen nontender Neurologic: moves all extremities and awake slow to respond, voice is somewhat weakened Psychiatric: Orientation: alert and oriented x 3 Results & Data Vital Signs (Past 12 Hours) Vital Signs Temp Pulse Pulse Resp BP BP Pulse Ox 05/07/19 07:07 36.9 C 67 22 114/66 95 05/07/19 06:56 68 18 95 05/07/19 03:26 36.7 C 64 108/65 100 05/07/19 02:30 37.1 C 05/07/19 00:08 36.8 C 64 16 118/57 L 98 05/06/19 23:53 36.8 C 73 20 120/68 95 05/06/19 22:55 36.8 C 61 16 105/64 98 05/06/19 22:25 36.4 C L 64 16 110/67 97 05/06/19 22:10 36.4 C L 60 16 114/71 100 Time Spent Midlevel 70 minutes with >50% of the time spent at bedside with patient and family discussing condition and GOC. Attending Spent 20 minutes in addition to the above 70 minutes spent by ANAMARIA Toth for a total of 90 minutes with greater than 50% of the time spent at bedside discussing goals of care.
[2019-05-07] MEDS ORDERED: ALBUMIN 25% 50 ML with FUROSEMIDE 40 MG IV ONE (10:53)
[2019-05-07] MEDS ORDERED: POLYETHYLENE (MIRALAX) 17 GM PACK NG ONE (10:54)
[2019-05-07] MEDS: LINEZOLID 600 MG/300 ML BAG IV SCH ×2 (12:47→22:10)
[2019-05-07] MEDS ORDERED: FIBERSOURCE HN 1.2 CAL 1000 ML BAG NG SCH (13:45)
--- NOTE | 2019-05-07 14:20 | Neurology Consultation ---
Date of Consultation May 07, 2019 Assessment & Plan (1) Pseudobulbar palsy: 1. pneumonia - continue to treat 2. palliative and GI involved for planning for possible PEG tube 3. gabepentin, Sinemet and Requip at this point is not helping patient and will be stopping them in sequence as given over the next 3 days 4. primary team for medical management 5. Ntg tube for essential medications 6. diagnosis is likely pseudo bulbar palsy which does not respond to these medications Supervising Physician Co-Signing Physician Notes I have seen and discussed above patient with Dr Darell Mathew neuro I have seen this woman examined her briefly discussed her history with her daughter, reviewed the notes we have available on the [employer] computer system and have reviewed the opinions rendered by our neuromuscular team at [place] and by our movement disorders team This is a woman who has several years of increasing dysphagia, nasal speech, no clear consistent supranuclear gaze disturbance, frequent falls who was felt to have a pseudo-bulbar palsy by neuromuscular but then was diagnosis perhaps a variant of progressive supranuclear palsy by our movement disorders team and appears that Sinemet was started at that point, it still not clear when Requip was added to the mix and its even less clear as to when gabapentin was added to the program but according to her daughter none of these have affected any change in the progressive nature of her illness and her dysphasia and she is now been admitted for further evaluation and possible PEG tube insertion The family is discussing this with the patient and decision about PEG tube versus chronic NG tube is going to be reached by Friday She has been seen by palliative medicine Our recommendations are to stop first the gabapentin, then the Requip and fi ulices the Sinemet and assess her probably after all agents have been discontinued to see if she is any worse for the lack of exposure to them I will be seeing her through the weekend but for now I do not think neurology is a whole lot to offer as neither the pseudobulbar palsy nor progressive supranuclear palsy are notorious for being responsive to medications Darell Mathew MD History of Present Illness Reason for Consultation: progression of supranuclear palsy Requesting Physician: Arturo Humphreys MD Attending Physician: Arturo Humphreys MD History of Present Illness Carolyne is a 83 year old female, who was discharged on rehab at [facility] on 05/04/2019 following hospitalization from 04/04-04/09 for acute metabolic encephalopathy thought due to combination of UTI and aspiration pneumonia. She was evaluated by home health nursing and found to have a very low body temperature, and was referred into the ED for assessment. She had a loss of appetite, had difficulty ambulating even with her walker, has had persistent shaking of her left hand and has had constipation issues. She is taking medication for swallowing difficulties, related to her progressive dysarthria and last saw neurology in [place] in November. Currently and is awake and alert but has a NGT in place and is having difficulty speaking. Accord to daughter prior to this admission she was walking with a walker and verbal. denies CP, SOB, abdominal pain Allergies Allergy/AdvReac Type Severity Reaction Status Date / Time esomeprazole Allergy Unknown Verified 05/05/19 17:03 sulfamethoxazole Allergy Unknown Verified 05/05/19 17:03 [From Bactrim] trimethoprim [From Bactrim] Allergy Unknown Verified 05/05/19 17:03 Home Medications Home Medications Medication Instructions Recorded Confirmed Type acetaminophen 325 mg tablet 650 mg PO Q4H PRN #100 tab 01/22/19 05/05/19 Rx zglbospr-pctfhfwn-vbku 8 mg-folic 1 tab PO DAILY #30 tab 01/22/19 05/05/19 Rx ac 400 mcg-vit K 10 mcg chew tablet nitroglycerin 0.4 mg sublingual 0.4 mg SL Q5M PRN #25 tab 01/22/19 05/05/19 Rx tablet sennosides 8.6 mg-docusate sodium 2 tab PO BID PRN #120 tab 01/22/19 05/05/19 Rx 50 mg tablet cholecalciferol (vitamin D3) 5,000 5,000 units PO DAILY #30 cap 01/27/19 05/05/19 Rx unit capsule albuterol sulfate 90 mcg/actuation 2 puffs INH Q4H PRN #18 gm 01/28/19 05/05/19 Rx aerosol inhaler atorvastatin 20 mg tablet 20 mg PO QPM #90 tab 02/01/19 05/05/19 Rx ipratropium-albuterol 0.5 mg-3 3 ml INH Q6H PRN #180 ml 02/01/19 05/05/19 Rx mg(2.5 mg base)/3 mL nebulization soln ropinirole 0.25 mg tablet 0.25 mg PO TID #270 tab 02/23/19 05/05/19 Rx carbidopa 25 mg-levodopa 100 mg 1 tab PO TID tab 03/25/19 05/05/19 History tablet ondansetron 4 mg disintegrating 4 mg PO Q8H PRN #30 tab 04/01/19 05/05/19 Rx tablet Culturelle 1 cap PO DAILY 04/03/19 05/05/19 History scopolamine base [Transderm-Scop] 1 patch TD Q72H PRN #10 ea MDD 1 04/09/19 05/05/19 Rx docusate sodium 100 mg PO DAILY 05/05/19 05/05/19 History gabapentin 100 mg PO TID 05/05/19 05/05/19 History levothyroxine 125 mcg PO DAILY 05/05/19 05/05/19 History torsemide 40 mg PO DAILY 05/05/19 05/05/19 History Patient History Medical History Anemia (Chronic) ASCVD (arteriosclerotic cardiovascular disease) (Acute) Aspiration pneumonitis (Acute) Atrioventricular block, Mobitz type 1, Wenckebach (Acute) Benign essential hypertension (Chronic) Cardiomyopathy, nonischemic (Acute) Chronic kidney disease (CKD) stage G4/A1, severely decreased glomerular filtration rate (GFR) between 15-29 mL/min/1.73 square meter and albuminuria creatinine ratio less than 30 mg/g (Chronic) CKD (chronic kidney disease) (Chronic) CKD (chronic kidney disease) (Acute) Decubitus ulcer of heel, stage 3 (Acute) Depression (Chronic) Diabetes mellitus with diabetic polyneuropathy (Acute) Diabetes mellitus with neurological manifestations, uncontrolled (Chronic) Diabetic retinopathy, nonproliferative (Chronic) Diabetic ulcer of left heel associated with type 2 diabetes mellitus, with fat layer exposed (Acute) DM II (diabetes mellitus, type II), controlled (Acute) Dysphagia (Acute) Elevated beta-2 microglobulin (Chronic) Encounter for diagnostic colonoscopy due to change in bowel habits (Acute) GERD (gastroesophageal reflux disease) (Acute) Heart block AV second degree (Chronic) High globulin level (Chronic) HTN (hypertension) (Acute) Hypercholesterolemia (Chronic) Hypertension, benign (Chronic) Hypotension (Acute) Hypothyroidism (Acute) Hypothyroidism (acquired) Hypoxemia (Acute) Morbid obesity (Acute) Neuropathic ulcer of left heel (Acute) Non-rheumatic tricuspid valve insufficiency (Acute) Pacemaker (Acute) Pleural effusion associated with pulmonary infection (Acute) Pulmonary artery hypertension (Acute) Recurrent UTI (Acute) Right-sided heart failure (Acute) Sleep apnea (Acute) Stage 4 chronic kidney disease due to hypertension (Chronic) Stage III pressure ulcer of left heel (Acute) Supranuclear palsies, progressive (Acute) Traumatic wound (Acute) Venous insufficiency (Acute) Surgical History History of cholecystectomy (Acute) History of total abdominal hysterectomy and bilateral salpingo-oophorectomy (Acute) Hx of appendectomy (Acute) S/P CABG x 4 (Acute) Social History Preferred Language: Amharic Communication Ability: Impaired Communication Ability Comment: difficult to understand. doesnt answer some questions Communication Tools: Picture Board Visual Impairment: Limited Hearing Ability: Normal Pattern Chart Writer Required: No Beliefs That Will Affect Care: None marital status: / Current Living Situation: Family Current Living Situation Comment: lives with daughter current occupational status: retired Feels Safe at Home: Yes Safety Concerns: Feels Safe At This Time Smoking Status: Never smoker Second Hand Exposure: Yes ; Hx Alcohol Use: No Hx Substance Use: No Childhood Exposure to Second-Hand Smoke: Yes caffeine: No during the past year weight has: decreased > 10 lbs Dental Care, Regularly: Yes Physical Activity Frequency: Daily Sunscreen Use: Yes Do you think of yourself as: straight/heterosexual Sexual Activity: has been sexually active, but not for at least 12 months Physical Exam Physical Exam: Gen: alert , ill appearing eye PERRLA, EOMI Ngt in place difficulty speaking one word answers squeezes bilaterally with hands but generalized weakness reflexes are decreased throughout Results & Data Vital Signs (Past 12 Hours) Vital Signs Temp Pulse Resp BP Pulse Ox 05/07/19 11:31 64 24 112/67 97 05/07/19 07:07 36.9 C 67 22 114/66 95 05/07/19 06:56 68 18 95 05/07/19 03:26 36.7 C 64 108/65 100 05/07/19 02:30 37.1 C Laboratory Results Abnormal lab results 05/06/19 05/06/19 05/06/19 Range/Units 16:34 16:34 18:50 WBC 4.14 L (4.8-10.8) K/uL RBC 2.56 L (4.2-5.4) M/uL Hgb 8.3 L (12.0-16.0) g/dL Hct 27.1 L (37-47) % MCV 105.9 H (80-100) fL MCHC 30.6 L (32-36) g/dL RDW Std Deviation 73.1 H (36.4-46.3) fL RDW Coeff of Ean 18.8 H (11.5-14.5) % MPV (7.4-10.4) fL Lymph # (Auto) 0.80 L (1.2-3.4) K/uL Absolute Nucleated RBC 0.04 H (0-0) K/uL Potassium (3.5-5.1) mmol/L BUN 64 H (7-18) mg/dl Creatinine 2.12 H (0.6-1.2) mg/dl BUN/Creatinine Ratio 30.0 H (10-20) Glucose 124 H (70-99) mg/dl POC Glucose (70-99) Magnesium 2.8 H (1.8-2.4) mg/dl AST 55 H (15-37) U/L Alkaline Phosphatase 346 H (45-117) U/L NT-Pro-B Natriuret Pep 2861 H (0-1800) pg/ml Albumin 2.8 L (3.4-5.0) gm/dl Globulin 4.9 H (2.5-4.0) gm/dl Albumin/Globulin Ratio 0.6 L (0.9-2) Crossmatch See Detail 05/07/19 05/07/19 05/07/19 Range/Units 05:59 06:46 06:46 WBC 4.25 L (4.8-10.8) K/uL RBC 2.90 L (4.2-5.4) M/uL Hgb 9.3 L (12.0-16.0) g/dL Hct 30.0 L (37-47) % MCV 103.4 H (80-100) fL MCHC 31.0 L (32-36) g/dL RDW Std Deviation 76.9 H (36.4-46.3) fL RDW Coeff of Ean 20.4 H (11.5-14.5) % MPV 11.4 H (7.4-10.4) fL Lymph # (Auto) 0.68 L (1.2-3.4) K/uL Absolute Nucleated RBC 0.02 H (0-0) K/uL Potassium 5.3 H (3.5-5.1) mmol/L BUN 63 H (7-18) mg/dl Creatinine 2.34 H (0.6-1.2) mg/dl BUN/Creatinine Ratio 26.7 H (10-20) Glucose (70-99) mg/dl POC Glucose 112 H (70-99) Magnesium 2.9 H (1.8-2.4) mg/dl AST 47 H (15-37) U/L Alkaline Phosphatase 308 H (45-117) U/L NT-Pro-B Natriuret Pep 3822 H (0-1800) pg/ml Albumin 2.7 L (3.4-5.0) gm/dl Globulin 5.1 H (2.5-4.0) gm/dl Albumin/Globulin Ratio 0.5 L (0.9-2) Crossmatch 05/07/19 05/07/19 Range/Units 07:05 11:08 WBC (4.8-10.8) K/uL RBC (4.2-5.4) M/uL Hgb (12.0-16.0) g/dL Hct (37-47) % MCV (80-100) fL MCHC (32-36) g/dL RDW Std Deviation (36.4-46.3) fL RDW Coeff of Ean (11.5-14.5) % MPV (7.4-10.4) fL Lymph # (Auto) (1.2-3.4) K/uL Absolute Nucleated RBC (0-0) K/uL Potassium (3.5-5.1) mmol/L BUN (7-18) mg/dl Creatinine (0.6-1.2) mg/dl BUN/Creatinine Ratio (10-20) Glucose (70-99) mg/dl POC Glucose 101 H 131 H (70-99) Magnesium (1.8-2.4) mg/dl AST (15-37) U/L Alkaline Phosphatase (45-117) U/L NT-Pro-B Natriuret Pep (0-1800) pg/ml Albumin (3.4-5.0) gm/dl Globulin (2.5-4.0) gm/dl Albumin/Globulin Ratio (0.9-2) Crossmatch Diagnostic Findings CT head-Old lacunar infarct in the right cerebellar hemisphere. No acute intracranial pathology. CXR-Cardiomegaly with interval development of advanced congestive change and mild to moderate pulmonary edema. Aspiration or infection could appear similarly. video-1. Extensive silent tracheal aspiration with thin liquids, nectar thick liquids and honey thick liquids. Full recommendations by speech pathology to follow.
--- NOTE | 2019-05-07 16:31 | XRay Report ---
KUB HISTORY: after coresafe placed COMPARISON: KUB 05/06/2019. FINDINGS: The tip of the feeding tube terminates at the gastric cardia just below the level the diaph ragm. This should be advanced by 10 to 15 cm. The heart remains enlarged. Poststernotomy changes. Lef t-sided pacemaker is noted. Mild pulmonary edema and patchy bibasilar densities and small bilateral p leural effusions persist. No renal calculi. No ureteral calculi. No pneumoperitoneum or pneumatosis. IMPRESSION: The feeding tube terminates at the gastric cardia just below the level of the diaphragm. This should be advanced by 10 to 15 cm. Electronically signed by: Ashok Edouard M.D. 05/07/2019 4:30 PM
--- NOTE | 2019-05-07 18:22 | XRay Report ---
XR KUB/Abdomen 1 view CLINICAL HISTORY: coresafe placement COMPARISON STUDY: No previous studies for comparison. FINDINGS: A single supine film is provided for interpretation. There is radiopaque contrast within [place]. A feeding tube is visualized projected over the expected location of the stomach. There is contr ast visualized below the symphysis pubis. This may indicate pelvic floor relaxation. IMPRESSION: The feeding tube appears positioned within the stomach. Electronically signed by: Mode Garza M.D. 05/07/2019 6:21 PM
--- NOTE | 2019-05-07 20:41 | Hospitalist Progress Note ---
Date of Service May 07, 2019 Assessment & Plan (1) Goals of care, counseling/discussion: Appreciate gastroenterology, palliative and neurology consults. Patient likely has capacity to make her own decisions however she defers to her family and currently there is no definitive consensus on PEG tube. Otherwise they are in agreement of artificial nutrition through an NG tube while she improves from a pneumonia point of view. We will continue to optimize through the weekend with a plan for family meeting on Friday when palliative is back. (2) Aspiration pneumonia: Continue on IV antibiotics Zyvox and Zosyn. Duonebs every 4 hours while awake and every 2 hours when necessary. See dysphagia below. (3) Dysphagia: Profound oropharyngeal dysphagia on video swallow to all liquids. She does not appear any different today now back on her Sinemet, ropinirole and gabapentin. Appreciate neurology review. 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 Extensive secretions likely due to continuous aspiration. Continue scopolamine patch. 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 Appreciate neurology review of her current medical regimen. (5) Hypoxia: Aim O2 sats > 94%. Secondary to chronic aspiration as above. (6) Hypothermia: Recurrent hypothermia - suspect secondary to infection. Although possibly dysregulation related to progressive supranuclear palsy. TSH WNL, continue on IV levothyroxine Cortisol 10.5 (7) Chronic kidney disease (CKD) stage G4/A1, severely decreased glomerular filtration rate (GFR) between 15-29 mL/min/1.73 square meter and albuminuria creatinine ratio less than 30 mg/g: At baseline but trending up. See discussion below regarding heart failure. (8) Hypothyroidism (acquired): Continue on replacement with IV levothyroxine. (9) CAD (coronary artery disease), [place] coronary artery: Status post four-vessel CABG. Not on antiplatelets due to previous GI bleed. No BB or ACEi/ARB due to orthostatic hypotension. Continue to hold atorvastatin as noncritical medication pending goals of care discussion. (10) Fecal retention: Continuing on MiraLAX pending bowel movement. No nausea, vomiting and passing flatus with no obstruction seen on CT. (11) Central sleep apnea: Noted from prior documentation. We will continue to monitor on telemetry. (12) Right heart failure: Significant jugular venous distention, similar to previous day. Weight appears to be increasing. Usually on torsemide 40 mg daily. Unclear dry weight. Since we are starting NG feeds will give a dose of Lasix 40 mg IV with albumin and trend creatinine. Daily weights Strict I's and O's with Morrow catheter placed (mainly for urinary retention) (13) Anemia: Likely secondary to CKD. 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 Suspect this is the cause of her elevated MCV. Status post 1 unit blood transfusion. Continue to trend CBC daily. I do not suspect an acute bleed. (14) Elevated serum alkaline phosphatase level: Unclear etiology. CT abdomen pelvis - 80 mm right lobe hypodensity, will continue to trend. (15) Severe protein-calorie malnutrition: Appreciate dietary review and tube feeds recommendations. Will start once Coresafe is placed. (16) Urinary retention: Suspect secondary to fecal retention. The Morrow catheter will also be useful for strict intake and output as she has been a difficult fluid balance in the past. Placed today 05/07. This should be attempted to be removed before discharge. (17) DVT prophylaxis: Due to unspecified anemia with history of severe GI bleed, will continue to hold off on chemical prophylaxis. Continue SCDs Subjective Involved in multiple discussions throughout the day including with palliative care, neurology and gastroenterology with the patient, daughter (Salima) and son (Rayshawn). Informed that oropharyngeal dysphagia has progressed since her [place] video swallow. No definitive decision on PEG tube from patient and her family. Palliative care will be back on Friday to discuss this in further detail with gastroenterology and the family. They wish to give nutrition via the NG tube over the weekend and see how she progresses with treatment for her pneumonia. Patient's main concern is lots of secretions and she is using suction to help deal with these. Scopolamine patch was placed today. Review of Systems Review of Systems: All systems reviewed & are unremarkable except as noted in HPI & below Physical Exam Constitutional: well developed, + ill appearing and + frail appearing; + not well nourished and no acute distress Eyes: + anicteric sclerae; normal pupil size ENMT: Mouth: + dry oral mucous membranes (very dry, white secretions) Neck: trachea midline; neck nontender Respiratory: normal respiratory effort; no respiratory distress, no labored breathing, does not use accessory muscles and no cough Auscultation: + diminished lung sounds (bibasal) and + rhonchi (throughout) Cardiovascular: Rate/Rhythm: regular rate and regular rhythm Heart Sounds: normal S1, normal S2 and + murmur (systolic throughout); no gallop and no cardiac rub Vessels: + JVD Extremities: normal capillary refill and + edema (2+ b/l) Gastrointestinal (Abdomen): Inspection/Auscultation: + abdomen distended and normal bowel sounds Percussion/Palpation: + abdomen tender (mild generalized) and abdomen soft; no guarding and abdomen not rigid Skin: no rashes, warm and dry Neurologic: moves all extremities and awake; no focal motor deficits, no meningeal signs and not confused (Fluctuates throughout the day) Speech / Cognition: + abnormal speech and + abnormal cognition (Has some insight) Motor/Sensory: no tremor, no pronator drift and no sensory deficit Psychiatric: Orientation: alert and oriented x 3 Eye Contact: + fair eye contact Affect: euthymic affect Results & Data Vital Signs (Past 12 Hours) Vital Signs Temp Pulse Resp BP Pulse Ox 05/07/19 19:54 97.3 F L 60 18 103/63 100 05/07/19 15:19 97.3 F L 60 18 97/57 L 98 05/07/19 11:31 64 24 112/67 97 PG Care Time/CCT Total # of Minutes Spent Total Time Spent with Patient: Total time spent is greater than 50% in coordination of care (as documented) at patient's floor/unit and/or counseling patient: (1) Anemia Anemia type: unspecified type Qualified Code(s): D64.9 - Anemia, unspecified (2) Dysphagia Dysphagia type: oropharyngeal phase Qualified Code(s): R13.12 - Dysphagia, oropharyngeal phase (3) Hypothermia Encounter type: subsequent encounter Qualified Code(s): T68.XXXD - Hypothermia, subsequent encounter (4) Aspiration pneumonia Aspiration pneumonia type: unspecified Laterality: bilateral Lung location: unspecified part of lung Qualified Code(s): J69.0 - Pneumonitis due to inhalation of food and vomit (5) Right heart failure Heart failure chronicity: chronic Qualified Code(s): I50.812 - Chronic right heart failure (6) Fecal retention Constipation type: slow transit constipation Qualified Code(s): K59.01 - Slow transit constipation
[2019-05-08] MEDS: FIBERSOURCE HN 1.2 CAL 1000 ML BAG NG SCH (00:01)
[2019-05-08] MEDS: CHECK SCOPOLAMINE PATCH PLACEMENT SCH ×3 (00:10→15:02)
[2019-05-08] MEDS: INSULIN ASPART 100 UNITS/ML 3 ML PEN SC SCH ×4 (00:14→18:50)
[2019-05-08] MEDS ORDERED: COUGH DROP (SUGAR FREE) LOZ 24 LOZ/1 BOX BUCCAL PRN (04:51)
[2019-05-08 07:34] LABS: Basophils # (auto) 0.01 K/uL (0-0.2); Basophils % (auto) 0.2 %; Eosinophils # (auto) 0.18 K/uL (0-0.5); Eosinophils % (auto) 4.1 %; Hematocrit (blood only) 29.7 % (37-47); Hemoglobin 9.2 g/dL (12.0-16.0); Immature Granulocytes # (auto) 0.01 K/uL (0.00-0.02); Immature Granulocytes % (auto) 0.2 %; Lymphocytes # (auto) 0.65 K/uL (1.2-3.4); Lymphocytes % (auto) 14.9 %; Mean Corpuscular Hemoglobin 31.8 pg (25-34); Mean Corpuscular Volume 102.8 fL (80-100); Mean Platelet Volume 10.7 fL (7.4-10.4); Monocytes # (auto) 0.39 K/uL (0.11-0.59); Neutrophils # (auto) 3.11 K/uL (1.4-6.5); Neutrophils % (auto) 71.6 %; Nucleated RBC # (auto) 0.02 K/uL (0-0); Nucleated RBC % (auto) 0.4 %; Platelet Count 125 K/uL (130-400); RDW Coefficient of Variation 19.6 % (11.5-14.5); RDW Standard Deviation 73.7 fL (36.4-46.3); Red Blood Count 2.89 M/uL (4.2-5.4); White Blood Count 4.35 K/uL (4.8-10.8)
[2019-05-08] MEDS ORDERED: ALBUMIN 25% 50 ML with FUROSEMIDE 40 MG IV ONE (08:00)
[2019-05-08 08:01] LABS: Anisocytosis Present
[2019-05-08 08:03] LABS: Albumin Level 2.7 gm/dl (3.4-5.0); BUN Creatinine Ratio 21.7 (10-20); Calcium 9.1 mg/dl (8.5-10.1); Creatinine Clr Calc Pharmacy 14.5 ml/min; Est GFR (African American) 19.2; Est GFR (Non-African American) 16.6; Potassium 4.3 mmol/L (3.5-5.1)
[2019-05-08 08:07] LABS: Albumin Globulin Ratio 0.6 (0.9-2); Bilirubin,Total 0.7 mg/dl (0.2-1); Globulin 4.9 gm/dl (2.5-4.0); Phosphorus 3.7 mg/dl (2.5-4.9); Total Protein 7.6 gm/dl (6.4-8.2)
[2019-05-08] MEDS: MULTI VIT W/MINERALS LIQUID 15 ML UDP PO SCH (09:08)
[2019-05-08] MEDS: PIPERACILLIN/TAZOBACTAM 3.375 GM in DEXTROSE 5% 100 ML IV SCH ×2 (09:08→20:22)
[2019-05-08] MEDS: LEVOTHYROXINE SODIUM 62.5 MCG in SYRINGE 0 ML IV SCH (09:09)
[2019-05-08] MEDS: HEPARIN SOD 5,000 UNIT/0.5 ML VIAL SQ SCH ×2 (09:09→20:24)
[2019-05-08] MEDS: POLYETHYLENE (MIRALAX) 17 GM PACK NG SCH (09:11)
[2019-05-08] MEDS: ROPINIROLE HCL 0.25 MG TABLET PO SCH ×3 (09:11→20:24)
--- NOTE | 2019-05-08 11:02 | Communication Note ---
Date of Service: May 08, 2019 I saw Mrs. Spaulding today and she actually looks much better than she did yesterday. She is awake alert oriented has nasal dysarthric speech compatible with her pseudobulbar palsy but is watching television is still vacillating on her decision about a PEG tube and seems well aware of what is been going on her case I did review the records and it appears that the initial diagnosis was that of a pseudobulbar palsy made by the neuromuscular group and not associated subsequently with any evidence for lower motor neuron disorder and apparently adequate scanning had been done of her brain to exclude a structural lesion is responsible for the pseudobulbar speech pattern and dysphasia She was subsequently evaluated by the movement disorders group and apparently on that they had an issue with upward gaze leading to the diagnosis of progressive supranuclear palsy and apparently at that point there was some discussion about neuro genetic testing although I am not clear what diagnosis was being investigated Today she has absolutely no supranuclear gaze disturbance, only the pseudobulbar speech pattern, I can find no evidence for lower motor neuron disease on examination of her upper or lower extremities, strength is good there are no fasciculations that I can see and any atrophy is certainly compatible with a woman of her age who is been in active. 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 and one it is very unlikely to have any response to the medications that have been tried As per our recommendations yesterday were gradually dropping first the Neurontin, then the Requip and finally the Sinemet as I really do not think that any of these are going to help and I think some of her increased alertness may reflect the removal of the gabapentin from yesterday I will check back with her tomorrow when she should be off the Requip and only on Sinemet and will be back on Friday when she should be off all medications and at that point hopefully she will have arrived to the decision about whether or not to have a PEG tube placed Darell Mathew MD
[2019-05-08] MEDS: LINEZOLID 600 MG/300 ML BAG IV SCH (12:44)
[2019-05-08] MEDS ORDERED: ANUSOL SUPP 1 EA PR PRN (13:48)
--- NOTE | 2019-05-08 20:00 | Hospitalist Progress Note ---
Date of Service May 08, 2019 Assessment & Plan (1) Goals of care, counseling/discussion: Appreciate gastroenterology, palliative and neurology consults. Plan unchanged. Will continue tube feeds and antibiotics over the weeked. Weaning off PSP medications as per neurology, although I think her Sinemet was also accidentally discontinued she appears to be doing fine if not better without this. (2) Aspiration pneumonia: Continue on IV Zosyn. MRSA node swab negative therefore can discontinue Zyvox. Duonebs every 2 hours when necessary, discontinued scheduled. See dysphagia below. (3) Dysphagia: Profound oropharyngeal dysphagia on video swallow to all liquids. She does not appear any different today now back on her Sinemet, ropinirole and gabapentin. Appreciate neurology review. 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 Extensive secretions likely due to continuous aspiration. Continue scopolamine patch. 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 Appreciate neurology review of her current medical regimen. Weaning off and re-evaluating. As discussed above her Sinemet was accidentally discontinued with the wrong stop date on Friday therefore she has not had any doses today but has been doing fine if not better therefore I will not restart this. (5) Hypoxia: Aim O2 sats > 94%. Secondary to chronic aspiration as above. (6) Hypothermia: Recurrent hypothermia - suspect secondary to infection. Although possibly dysregulation related to progressive supranuclear palsy. TSH WNL, continue on IV levothyroxine Cortisol 10.5 (7) Chronic kidney disease (CKD) stage G4/A1, severely decreased glomerular filtration rate (GFR) between 15-29 mL/min/1.73 square meter and albuminuria creatinine ratio less than 30 mg/g: At baseline but trending up. See discussion below regarding heart failure. (8) Hypothyroidism (acquired): Switch back to [facility] dosing [facility] (9) CAD (coronary artery disease), [place] coronary artery: Status post four-vessel CABG. Not on antiplatelets due to previous GI bleed. No BB or ACEi/ARB due to orthostatic hypotension. Continue to hold atorvastatin as noncritical medication pending goals of care discussion. (10) Fecal retention: Resolved with MiraLAX dosing. (11) Central sleep apnea: Noted from prior documentation. We will continue to monitor on telemetry. (12) Right heart failure: Significant jugular venous distention, similar to previous day. Weight appears to be increasing. Usually on torsemide 40 mg daily. Unclear dry weight. Additional 40mg lasix today with albumin. Daily weights Strict I&Os Will consult cardiology for help with ongoing management as Cr continues to rise and clinical history suggestive of dehydration but alternative lab work favors hypervolemic on left as well as right heart. Daughter requests transfer to [facility] cardiology despite being seen by [facility] in the past. (13) Anemia: Likely secondary to CKD. 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 Suspect this is the cause of her elevated MCV. Status post 1 unit blood transfusion. Continue to trend CBC daily. I do not suspect an acute bleed. Hgb stable. (14) Elevated serum alkaline phosphatase level: Unclear etiology. CT abdomen pelvis - 80 mm right lobe hypodensity, will continue to trend. (15) Severe protein-calorie malnutrition: Appreciate dietary review and tube feeds recommendations. (16) Urinary retention: Suspect secondary to fecal retention, although this is now resolved. Will leave in for now given heart failure and need for accurate I&Os but suspect she will pass TWOC now fecal retention resolved. (17) DVT prophylaxis: Heparin 5000 units SQ BID Continue SCDs Subjective Patient tolerating Coresafe feeding tube much more than NG tube yesterday. Position was confirmed on KUB and she is now on tube feeds. She appears much more alert. No chest pain or shortness of breath. Mild abdominal pain but improved from previous now had multiple bowel movements with MiraLAX. Secretions now much improved although unclear if from scopolamine patch or NPO therefore less aspirations. Discussed over the phone with her daughter Salima who is in earlier in the day. She also reports she believes her mother is improving. No concerns or questions at this time. We discussed her fluid status and would recommend cardiology consult at this time, she wished to consult [facility] and effort to move her her mother's care to [facility] doctors to coincide with her primary care provider. Review of Systems Review of Systems: All systems reviewed & are unremarkable except as noted in HPI & below Physical Exam Constitutional: well developed, + ill appearing and + frail appearing; + not well nourished and no acute distress Eyes: + anicteric sclerae; normal pupil size ENMT: Mouth: + dry oral mucous membranes (Coresafe in place) Neck: trachea midline; neck nontender Respiratory: normal respiratory effort; no respiratory distress, no labored breathing, does not use accessory muscles and no cough Auscultation: + diminished lung sounds (Improved air entry b/l) and + rhonchi (throughout) Cardiovascular: Rate/Rhythm: regular rate and regular rhythm Heart Sounds: normal S1, normal S2 and + murmur (systolic throughout); no gallop and no card iac rub Vessels: + JVD Extremities: normal capillary refill and + edema (1+ b/l) Gastrointestinal (Abdomen): Inspection/Auscultation: normal bowel sounds; abdomen not distended Percussion/Palpation: + abdomen tender (mild generalized, much improved) and abdomen soft; no guarding and abdomen not rigid Musculoskeletal: Spine: no cervical spinal tenderness, no thoracic spinal tenderness and no lumbar spinal tenderness Skin: no rashes, warm and dry Neurologic: moves all extremities and awake; no focal motor deficits, no meningeal signs and not confused (Improved from prior day) Speech / Cognition: normal cognition Motor/Sensory: no tremor, no pronator drift and no sensory deficit Psychiatric: Orientation: alert and oriented x 3 Eye Contact: good eye contact Affect: euthymic affect Results & Data Vital Signs (Past 12 Hours) Vital Signs Temp Pulse Resp BP Pulse Ox 05/08/19 15:26 97.5 F L 60 16 95/58 L 96 PG Care Time/CCT Total # of Minutes Spent Total Time Spent with Patient: Total time spent is greater than 50% in coordination of care (as documented) at patient's floor/unit and/or counseling patient: (1) Anemia Anemia type: unspecified type Qualified Code(s): D64.9 - Anemia, unspecified (2) Dysphagia Dysphagia type: oropharyngeal phase Qualified Code(s): R13.12 - Dysphagia, oropharyngeal phase (3) Hypothermia Encounter type: subsequent encounter Qualified Code(s): T68.XXXD - Hypothermia, subsequent encounter (4) Aspiration pneumonia Aspiration pneumonia type: unspecified Laterality: bilateral Lung location: unspecified part of lung Qualified Code(s): J69.0 - Pneumonitis due to inhalation of food and vomit (5) Right heart failure Heart failure chronicity: chronic Qualified Code(s): I50.812 - Chronic right heart failure (6) Fecal retention Constipation type: slow transit constipation Qualified Code(s): K59.01 - Slow transit constipation
[2019-05-09] MEDS: INSULIN ASPART 100 UNITS/ML 3 ML PEN SC SCH ×4 (00:08→18:15)
[2019-05-09] MEDS: LEVOTHYROXINE SODIUM 125 MCG TABLET PO SCH (06:00)
[2019-05-09] MEDS: FIBERSOURCE HN 1.2 CAL 1000 ML BAG NG SCH (06:08)
--- NOTE | 2019-05-09 06:51 | XRay Report ---
KUB HISTORY: Status post placement of feeding tube core safe placement COMPARISON: KUB 05/07/2019 FINDINGS: The bowel gas pattern is non-obstructive. Distal tip of feeding tube terminates within the left midabdomen in the expected location of the mid gastric body. Prior median sternotomy. Cardiomega ly. Bibasilar opacities with suggestion of small right pleural effusion. There is no organomegaly. N o renal calculi. No ureteral calculi. No pneumoperitoneum or pneumatosis. Advanced degenerative guzman es of the spine, pelvis and hips. Contrast is noted within loops of bowel within the abdomen and pelv is. No fracture. IMPRESSION: Distal tip of feeding tube is noted in the expected location of the mid gastric body. Electronically signed by: Jamie Ahumada M.D. 05/09/2019 6:50 AM
[2019-05-09 07:02] LABS: Basophils # (auto) 0.01 K/uL (0-0.2); Basophils % (auto) 0.2 %; Eosinophils # (auto) 0.19 K/uL (0-0.5); Eosinophils % (auto) 4.3 %; Hematocrit (blood only) 29.6 % (37-47); Hemoglobin 9.3 g/dL (12.0-16.0); Immature Granulocytes # (auto) 0.01 K/uL (0.00-0.02); Immature Granulocytes % (auto) 0.2 %; Lymphocytes # (auto) 0.48 K/uL (1.2-3.4); Lymphocytes % (auto) 10.7 %; Mean Corpuscular Hemoglobin 32.6 pg (25-34); Mean Corpuscular Hgb Conc 31.4 g/dL (32-36); Mean Corpuscular Volume 103.9 fL (80-100); Mean Platelet Volume 10.7 fL (7.4-10.4); Monocytes # (auto) 0.34 K/uL (0.11-0.59); Monocytes % (auto) 7.6 %; Neutrophils # (auto) 3.44 K/uL (1.4-6.5); Platelet Count 119 K/uL (130-400); RDW Coefficient of Variation 18.7 % (11.5-14.5); RDW Standard Deviation 71.7 fL (36.4-46.3); Red Blood Count 2.85 M/uL (4.2-5.4); White Blood Count 4.47 K/uL (4.8-10.8)
[2019-05-09 07:43] LABS: Albumin Level 2.7 gm/dl (3.4-5.0); Calcium 8.9 mg/dl (8.5-10.1); Creatinine Clr Calc Pharmacy 14.1 ml/min; Est GFR (African American) 18.6; Magnesium 2.7 mg/dl (1.8-2.4); Potassium 4.1 mmol/L (3.5-5.1)
[2019-05-09 07:48] LABS: Albumin Globulin Ratio 0.6 (0.9-2); Bilirubin,Total 0.6 mg/dl (0.2-1); Globulin 4.8 gm/dl (2.5-4.0); Phosphorus 3.5 mg/dl (2.5-4.9); Total Protein 7.5 gm/dl (6.4-8.2)
[2019-05-09] MEDS: POLYETHYLENE (MIRALAX) 17 GM PACK NG SCH (08:43)
[2019-05-09] MEDS: HEPARIN SOD 5,000 UNIT/0.5 ML VIAL SQ SCH ×2 (08:47→20:11)
[2019-05-09] MEDS: PIPERACILLIN/TAZOBACTAM 3.375 GM in DEXTROSE 5% 100 ML IV SCH ×2 (08:47→20:10)
[2019-05-09] MEDS: MULTI VIT W/MINERALS LIQUID 15 ML UDP PO SCH (08:48)
--- NOTE | 2019-05-09 11:15 | Communication Note ---
Date of Service: May 09, 2019 I saw Mrs. Spaulding again today and find her to be easily arousable, alert cooperative and to have little change in her pseudobulbar speech pattern, to still have no supranuclear gaze disturbance and really very little significant weakness of her limbs and certainly no lower motor neuron signs She is still on the fence regarding her PEG tube and decision about whether to proceed with it We are called going to be dropping her Sinemet tomorrow as per the orders written on Friday and I suspect she will look a little or no different after cessation of this medication as well as the gabapentin, Requip have been discontinued over the last 2 days Again by feeling is this is pure pseudobulbar palsy likely as part of a motor neuron disease spectrum rather than having to postulate in entities such as supranuclear palsy The issue is totally academic as there is really no treatment available other than support and she is currently wrestling with the decision about a PEG tube versus chronic nasogastric feeding We will stop by tomorrow to reassess her Darell Mathew MD
--- NOTE | 2019-05-09 11:23 | Cardiology Consultation ---
Date of Consultation May 09, 2019 Assessment & Plan (1) Chronic systolic right heart failure: (2) CAD (coronary artery disease), [place] coronary artery: (3) Hypertension, benign: (4) Cardiomyopathy: (5) Pulmonary hypertension: (6) Mitral regurgitation: (7) Tricuspid regurgitation: (8) Paroxysmal atrial fibrillation: ASSESSMENT/PLAN: 1. Chronic systolic right heart failure: She does have JVD but otherwise does not appear to be hypervolemic. JVD likely due to elevated right-sided filling pressures in the setting of right heart failure, which is not unexpected. Her mucous membranes actually appear dry and she had not been consuming food/fluids for several days according to report. She is currently off of her diuretics. This is okay for now, but would monitor closely and resume her home dose of diuretics when appropriate, certainly if she starts receiving usual amounts of oral intake/fluids. 2. Cardiomyopathy: She has a history of multivessel CAD. Her prior LV systolic function is not known as she was followed formally at [facility]. She does not appear to be significantly hypervolemic at this time. Usual medical therapy for reduced LV systolic function is typically difficult in the setting of right heart failure. 3. Multivessel CAD status post CABG x4 (2001): Details unknown. No angina. It is not clear why she is not on aspirin therapy at this time. If no contraindications, please consider. She does take statin therapy as an outpatient. Can resume statin therapy. 4. Pulmonary hypertension: Apparently a chronic issue for her. She has interstitial lung disease based on CT scan as well as right heart failure. 5. Mitral and tricuspid regurgitation: Non severe. Can be monitored over time as appropriate. 6. AV block status post dual-chamber pacemaker: Recommend enrollment in pacer clinic after discharge. 7. Paroxysmal atrial fibrillation: Details of this diagnosis are not known but Paroxysmal atrial fibrillation is documented in her outpatient cardiology records. This can be monitored with pacemaker interrogation. She was not on anticoagulation therapy upon presentation nor at her last cardiology visit. Details of this are not known. For now, would recommend that she be followed in pacer clinic and if she shows evidence of atrial fibrillation, this can be discussed at that time if appropriate. 8. Hypertension: Blood pressure currently normal. 9. Disposition: She plans on continuing discussions with palliative care, neurology, and GI for possible PEG placement. Patient care discussed with Dr. Juliann of the primary hospitalist service. Please call with any other questions or concerns. Thank you for allowing me to participate in the care of your patient. Please call for any other questions or concerns. Sincerely, Gab De Jesus M.D. History of Present Illness Reason for Consultation: Heart failure Requesting Physician: Dr. Humphreys Attending Physician: Arturo Humphreys MD History of Present Illness Mrs. 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 She was admitted for aspiration pneumonia. She formally was followed by Dr. Quintanilla ([facility]), but has requested transfer of care to [facility] cardiology. According to records, she has chronic right heart failure. 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 Consultation was requested today to help manage and determine her current volume status. She had gone a few days without eating or drinking due to aspiration. She has been seen by ID for her aspiration pneumonia, palliative care, and GI for possible PEG tube. She has not yet decided if he wants a feeding tube but would like to discuss further with her family. She denies shortness of breath, orthopnea, syncope, near-syncope, chest pain, palpitations, or edema. She denies bleeding such as melena, hematochezia, or hematuria. She admits that she has chronic intermittent abdominal pain, but none currently. During this hospitalization, her diuretic therapy has been held. Her net fluid balance is positive 2.9 L according to chart. While home, she lives with her daughter. She ambulates little but when she does, she uses a walker to help assist her ambulation. Review of systems: As above. Review of systems otherwise negative/unremarkable. Family history: No known premature CAD. Social history: She denies tobacco or alcohol abuse. She has 4 children. She lives with her daughter. She was unaccompanied today in her hospital room. Allergies Allergy/AdvReac Type Severity Reaction Status Date / Time esomeprazole Allergy Unknown Verified 05/05/19 17:03 sulfamethoxazole Allergy Unknown Verified 05/05/19 17:03 [From Bactrim] trimethoprim [From Bactrim] Allergy Unknown Verified 05/05/19 17:03 Home Medications Home Medications Medication Instructions Recorded Confirmed Type acetaminophen 325 mg tablet 650 mg PO Q4H PRN #100 tab 01/22/19 05/05/19 Rx fbxwowby-fhdtntpj-[id number] 8 mg-folic 1 tab PO DAILY #30 tab 01/22/19 05/05/19 Rx ac 400 mcg-vit K 10 mcg chew tablet nitroglycerin 0.4 mg sublingual 0.4 mg SL Q5M PRN #25 tab 01/22/19 05/05/19 Rx tablet sennosides 8.6 mg-docusate sodium 2 tab PO BID PRN #120 tab 01/22/19 05/05/19 Rx 50 mg tablet cholecalciferol (vitamin D3) 5,000 5,000 units PO DAILY #30 cap 01/27/19 05/05/19 Rx unit capsule albuterol sulfate 90 mcg/actuation 2 puffs INH Q4H PRN #18 gm 01/28/19 05/05/19 Rx aerosol inhaler atorvastatin 20 mg tablet 20 mg PO QPM #90 tab 02/01/19 05/05/19 Rx ipratropium-albuterol 0.5 mg-3 3 ml INH Q6H PRN #180 ml 02/01/19 05/05/19 Rx mg(2.5 mg base)/3 mL nebulization soln ropinirole 0.25 mg tablet 0.25 mg PO TID #270 tab 02/23/19 05/05/19 Rx carbidopa 25 mg-levodopa 100 mg 1 tab PO TID tab 03/25/19 05/05/19 History tablet ondansetron 4 mg disintegrating 4 mg PO Q8H PRN #30 tab 04/01/19 05/05/19 Rx tablet Culturelle 1 cap PO DAILY 04/03/19 05/05/19 History scopolamine base [Transderm-Scop] 1 patch TD Q72H PRN #10 ea MDD 1 04/09/19 05/05/19 Rx docusate sodium 100 mg PO DAILY 05/05/19 05/05/19 History gabapentin 100 mg PO TID 05/05/19 05/05/19 History levothyroxine 125 mcg PO DAILY 05/05/19 05/05/19 History torsemide 40 mg PO DAILY 05/05/19 05/05/19 History Patient History Medical History Anemia (Chronic) ASCVD (arteriosclerotic cardiovascular disease) (Acute) Aspiration pneumonitis (Acute) Atrioventricular block, Mobitz type 1, Wenckebach (Acute) Benign essential hypertension (Chronic) Cardiomyopathy Chronic kidney disease (CKD) stage G4/A1, severely decreased glomerular filtration rate (GFR) between 15-29 mL/min/1.73 square meter and albuminuria creatinine ratio less than 30 mg/g (Chronic) Chronic systolic right heart failure CKD (chronic kidney disease) (Chronic) CKD (chronic kidney disease) (Acute) Decubitus ulcer of heel, stage 3 (Acute) Depression (Chronic) Diabetes mellitus with diabetic polyneuropathy (Acute) Diabetes mellitus with neurological manifestations, uncontrolled (Chronic) Diabetic retinopathy, nonproliferative (Chronic) Diabetic ulcer of left heel associated with type 2 diabetes mellitus, with fat layer exposed (Acute) DM II (diabetes mellitus, type II), controlled (Acute) Dysphagia (Acute) Elevated beta-2 microglobulin (Chronic) Encounter for diagnostic colonoscopy due to change in bowel habits (Acute) GERD (gastroesophageal reflux disease) (Acute) Heart block AV second degree (Chronic) High globulin level (Chronic) HTN (hypertension) (Acute) Hypercholesterolemia (Chronic) Hypertension, benign (Chronic) Hypotension (Acute) Hypothyroidism (Acute) Hypothyroidism (acquired) Hypoxemia (Acute) Mitral regurgitation Morbid obesity (Acute) Neuropathic ulcer of left heel (Acute) Non-rheumatic tricuspid valve insufficiency (Acute) Pacemaker (Acute) Pleural effusion associated with pulmonary infection (Acute) Pulmonary artery hypertension (Acute) Pulmonary hypertension Recurrent UTI (Acute) Right-sided heart failure (Acute) Sleep apnea (Acute) Stage 4 chronic kidney disease due to hypertension (Chronic) Stage III pressure ulcer of left heel (Acute) Supranuclear palsies, progressive (Acute) Traumatic wound (Acute) Tricuspid regurgitation Venous insufficiency (Acute) Surgical History History of cholecystectomy (Acute) History of total abdominal hysterectomy and bilateral salpingo-oophorectomy (Acute) Hx of appendectomy (Acute) S/P CABG x 4 (Acute) Social History Preferred Language: Belarusian Communication Ability: Impaired Communication Ability Comment: difficult to understand. doesnt answer some questions Communication Tools: Picture Board Visual Impairment: Limited Hearing Ability: Normal Salvage Winder Required: No Beliefs That Will Affect Care: None marital status: / Current Living Situation: Family Current Living Situation Comment: lives with daughter current occupational status: retired Feels Safe at Home: Yes Safety Concerns: Feels Safe At This Time Smoking Status: Never smoker Second Hand Exposure: Yes ; Hx Alcohol Use: No Hx Substance Use: No Childhood Exposure to Second-Hand Smoke: Yes caffeine: No during the past year weight has: decreased > 10 lbs Dental Care, Regularly: Yes Physical Activity Frequency: Daily Sunscreen Use: Yes Do you think of yourself as: straight/heterosexual Sexual Activity: has been sexually active, but not for at least 12 months Physical Exam 2 Physical Exam: Gen.: No acute distress. Alert and oriented. HEENT: Anicteric sclera. Neck: Elevated JVD senior care to the mandible sitting upright. No bruits. Normal carotid upstrokes bilaterally. Cardiac: PMI was nonpalpable . No ventricular heave. Regular. Normal S1-S2. No murmurs, rubs, or gallops. Pulmonary: Decreased breath sounds throughout with coarse breath sounds bilaterally. Abdomen: Soft, nontender, nondistended, with normoactive bowel sounds. No bruits noted. Extremities: 2+ radial pulses bilaterally. 2+ posterior tibialis pulses bilaterally. No edema or cyanosis. Psychiatric: Affect appears appropriate. Results & Data Vital Signs (Past 12 Hours) Vital Signs Temp Pulse Pulse Resp BP Pulse Ox 05/09/19 07:24 36.8 C 63 20 107/66 99 05/09/19 03:10 36.9 C 66 18 105/63 93 05/09/19 00:00 67 05/08/19 23:15 37 C 70 18 112/63 92 Intake & Output 05/07/19 05/08/19 05/09/19 05/10/19 06:59 06:59 06:59 06:59 Intake Total 2140 / 2140 935 / 935 1478 / 1478 Output Total 300 / 300 1603 / 1603 1135 / 1135 Balance 1840 / 1840 -668 / -668 343 / 343 Weight 65.8 kg 66.7 kg 66.5 kg Laboratory Results Laboratory Results - last 24 hr 05/08/19 05/08/19 05/08/19 11:49 18:33 23:47 WBC RBC Hgb Hct MCV MCH MCHC RDW Std Deviation RDW Coeff of Ean Plt Count MPV Immature Gran % (Auto) Neut % (Auto) Lymph % (Auto) [place] % (Auto) Eos % (Auto) Baso % (Auto) Immature Gran # (Auto) Neut # (Auto) Lymph # (Auto) [place] # (Auto) Eos # (Auto) Baso # (Auto) Sodium Potassium Chloride Carbon Dioxide Anion Gap BUN Creatinine Est Cr Clr Drug Dosing Est GFR ( Amer) Est GFR (Non-Af Amer) BUN/Creatinine Ratio Glucose POC Glucose 143 H 132 H 161 H Calcium Phosphorus Magnesium Total Bilirubin AST ALT Alkaline Phosphatase NT-Pro-B Natriuret Pep Total Protein Albumin Globulin Albumin/Globulin Ratio 05/09/19 05/09/19 05/09/19 06:04 06:50 06:50 WBC 4.47 L RBC 2.85 L Hgb 9.3 L Hct 29.6 L MCV 103.9 H MCH 32.6 MCHC 31.4 L RDW Std Deviation 71.7 H RDW Coeff of Ean 18.7 H Plt Count 119 L MPV 10.7 H Immature Gran % (Auto) 0.2 Neut % (Auto) 77.0 Lymph % (Auto) 10.7 [place] % (Auto) 7.6 Eos % (Auto) 4.3 Baso % (Auto) 0.2 Immature Gran # (Auto) 0.01 Neut # (Auto) 3.44 Lymph # (Auto) 0.48 L [place] # (Auto) 0.34 Eos # (Auto) 0.19 Baso # (Auto) 0.01 Sodium 134 L Potassium 4.1 Chloride 94 L Carbon Dioxide 34 H Anion Gap 6.0 BUN 55 H Creatinine 2.62 H Est Cr Clr Drug Dosing 14.1 Est GFR ( Amer) 18.6 Est GFR (Non-Af Amer) 16.0 BUN/Creatinine Ratio 21.0 H Glucose 146 H POC Glucose 163 H Calcium 8.9 Phosphorus 3.5 Magnesium 2.7 H Total Bilirubin 0.6 AST 31 ALT 16 Alkaline Phosphatase 263 H NT-Pro-B Natriuret Pep 6294 H Total Protein 7.5 Albumin 2.7 L Globulin 4.8 H Albumin/Globulin Ratio 0.6 L Diagnostic Findings Telemetry personally reviewed: Sinus rhythm with intermittent atrial pacing. Echo 05/09/2019: Mildly dilated LV with mildly to moderately reduced systolic function. EF 40-45%. Mild global hypokinesis with severe hypokinesis of the inferolateral wall. No LVH. RV not well visualized but appears to be moderately dilated with moderately reduced systolic function. Mild biatrial dilation. Moderate MR. Mild to moderate TR. Moderate pulmonary hypertension. ECG 05/05/2019: Av pacing [address] chest 05/05/2019: Chronic reticular opacities compatible with interstitial lung disease. Mid and lower lung zone patchy consolidative ground-glass opacities with centrilobular nodules suggest aspiration pneumonitis versus multifocal pneumonia. Small pleural effusions with chronic bibasilar pleural thickening. Supraclavicular, mediastinal, and hilar adenopathy, stable from prior examination per Radiology. Dilated main pulmonary artery suggests pulmonary arterial hypertension per Radiology. Medications Administered Current Inpatient Medications Acetaminophen (Tylenol) 650 mg PO Q4H PRN PRN Reason: pain Stop: 06/05/19 18:12 Albuterol (Duoneb) 3 ml INH Q6H PRN PRN Reason: shortness of breath or wheezing Stop: 06/05/19 18:12 Dextrose (Dextrose 50%) 25 - 50 ml IV UD PRN; Protocol PRN Reason: Hypoglycemia Protocol Stop: 06/06/19 04:07 Enteral Nutritional Formula (Fibersource Hn 1.2 [place] Liquid) 1,000 ml NG UD FELICITA; Protocol Stop: 06/06/19 14:14 Last Admin: 05/09/19 06:08 Dose: 1,000 ml Documented by: Glucagon (Glucagen) 1 mg SQ UD PRN; Protocol PRN Reason: Hypoglycemia Protocol Stop: 06/06/19 04:07 Glucose (Dex4 Glucose) 4 - 8 tabs PO UD PRN; Protocol PRN Reason: Hypoglycemia Protocol Stop: 06/06/19 04:07 Glucose (Glucose 40%) 15 - 30 gm PO UD PRN; Protocol PRN Reason: Hypoglycemia Protocol Stop: 06/06/19 04:07 Heparin Sodium (Porcine) (Heparin Sodium (Porcine)) 5,000 units SQ Q12 FELICITA Stop: 06/04/19 22:16 Last Admin: 05/09/19 08:47 Dose: 5,000 units Documented by: Piperacillin Sod/Tazobactam (Sod 3.375 gm/ Dextrose) 115 mls @ 28.75 mls/hr IV Q12H [facility]; Protocol Stop: 05/13/19 00:00 Last Admin: 05/09/19 08:47 Dose: 28.8 mls/hr Documented by: Sodium Chloride (Nss) 250 mls @ 15 mls/hr IV .[id number] PRN PRN Reason: For Transfusion Stop: 06/05/19 18:18 Insulin Aspart (Novolog Flexpen) 0 units SC Q6 FELICITA Stop: 06/06/19 05:59 Last Admin: 05/09/19 06:05 Dose: Not Given Documented by: Levothyroxine Sodium (Synthroid) 125 mcg PO DAILYBB FELICITA Stop: 06/08/19 06:29 Last Admin: 05/09/19 06:00 Dose: 125 mcg Documented by: Menthol (Nice) 1 yesy BUCCAL PRN PRN PRN Reason: Sore Throat Stop: 06/07/19 04:50 Miscellaneous (Carbohydrates For Hypoglycemia) 15 - 30 gm PO UD PRN PRN Reason: Hypoglycemia Protocol Stop: 06/06/19 04:07 Miscellaneous Information (Consult) 1 ea N/A UD PRN PRN Reason: Consult Stop: 06/04/19 20:46 Multivitamins/Folic Acid/Vitamin C (Flintstones Complete Chew Tab) 1 tab PO DAILY FELICITA Stop: 06/06/19 08:59 Multivitamins/Minerals (Cerovite Liquid) 15 ml PO QAM FELICITA Stop: 06/06/19 08:59 Last Admin: 05/09/19 08:48 Dose: 15 ml Documented by: Non-Formulary Medication (Lactobacillus Rhamnosus Gg [Culturelle]) 1 cap PO DAILY FELICITA Stop: 06/06/19 08:59 Nystatin (Mycostatin) 1 appln EXT TID PRN PRN Reason: Rash Stop: 06/05/19 15:42 Ondansetron HCl (Zofran) 4 mg IV Q6H PRN PRN Reason: Nausea Stop: 06/04/19 22:16 Last Admin: 05/07/19 01:48 Dose: 4 mg Documented by: Phenol (Chloraseptic 1.4% [place]) 1 sprays MT TID PRN PRN Reason: Sore Throat Stop: 06/05/19 23:32 Last Admin: 05/07/19 00:03 Dose: 1 sprays Documented by: Phenylephrine HCl (Anusol) 1 ea [place] DAILY PRN PRN Reason: Hemorrhoids Stop: 06/07/19 13:47 Polyethylene Glycol (Miralax Powder Packet) 17 gm NG QAM [facility] Stop: 06/05/19 18:59 Last Admin: 05/09/19 08:43 Dose: Not Given Documented by: PG Care Time/CCT Total # of Minutes Spent Total Time Spent with Patient: Total time spent is greater than 50% in coordination of care (as documented) at patient's floor/unit and/or counseling patient:
[2019-05-09] MEDS: SCOPOLAMINE 1.5 MG TDSY TD SCH (16:57)
--- NOTE | 2019-05-09 18:56 | Hospitalist Progress Note ---
Date of Service May 09, 2019 Assessment & Plan (1) Goals of care, counseling/discussion: Appreciate gastroenterology, palliative and neurology consults. Plan unchanged. Continuing tube feeds and antibiotics over the weekend. Weaning off PSP medications as per neurology, although I think her Sinemet was also accidentally discontinued she appears to be doing fine if not better without this. Plan for family meeting with gastroenterology and palliative regarding further decisions of care tomorrow. Patient appears to have much more cognition and understanding of her medical conditions since admission. I do not expect her mental state to improve much more than her current state. (2) Aspiration pneumonia: Continue on IV Zosyn, suspect she will get recurrent pneumonia once this is finished. Discussion regarding antibiotics on future admissions to be discussed prior to discharge. Duonebs every 2 hours when necessary. See dysphagia below. (3) Dysphagia: Profound oropharyngeal dysphagia on video swallow to all liquids secondary to pseudobulbar palsy (see below). Appreciate neurology review. Prior diagnosis of aggressive supranuclear palsy however no gaze abnormalities on exam here off medication. Extensive secretions likely due to continuous aspiration. Secretions worse today after discontinuing scopolamine therefore will restart this home medication. 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 Appreciate neurology review of her current medical regimen. Weaning off and re-evaluating. As discussed above her Sinemet was accidentally discontinued with the wrong stop date on Friday therefore she has not had any doses yesterday or today but has been doing fine if not better therefore I will not restart this. (5) Hypoxia: Aim O2 sats > 94%. Secondary to chronic aspiration as above. (6) Hypothermia: Recurrent hypothermia - suspect secondary to infection. Although possibly dysregulation related to progressive supranuclear palsy. TSH WNL, continue home dose levothyroxine through coresafe. Cortisol 10.5 (7) Chronic kidney disease (CKD) stage G4/A1, severely decreased glomerular filtration rate (GFR) between 15-29 mL/min/1.73 square meter and albuminuria creatinine ratio less than 30 mg/g: At baseline but trending up, suspected dehydration given history. See discussion below regarding heart failure. (8) Hypothyroidism (acquired): Continue PO levothyroxine to be crushed down Coresafe NG (9) CAD (coronary artery disease), [place] coronary artery: Status post four-vessel CABG. Not on antiplatelets due to previous GI bleed. No BB or ACEi/ARB due to orthostatic hypotension. Continue to hold atorvastatin as noncritical medication pending goals of care discussion. (10) Fecal retention: Resolved with MiraLAX dosing. Now having diarrhea on tube feeds. We will continue to monitor. (11) Central sleep apnea: Noted from prior documentation. We will continue to monitor on telemetry. (12) Anemia: Likely secondary to CKD. Review [facility] records show erythropoietin prescribed by her respiratory care instructor. Suspect this is the cause of her elevated MCV. Status post x1 unit PRBC transfusion. Hgb stable. I do not suspect an acute bleed. (13) Severe protein-calorie malnutrition: Appreciate dietary review and tube feeds recommendations. (14) Urinary retention: Suspect secondary to fecal retention, although this is now resolved. Will leave in for now given heart failure and need for accurate I&Os but suspect she will pass TWOC now fecal retention resolved. Plan to remove in the next 1 to 2 days depending on clinical course. (15) Chronic systolic right heart failure: Appreciate cardiology management of fluid status. Discussed with Dr. De Jesus. Will hold further diuretics at this time as Lasix has caused her creatinine to increase. (16) DVT prophylaxis: Heparin 5000 units SQ BID Continue SCDs Subjective Patient reports she is still undecided regarding the PEG tube. I saw independently from her daughter. I explained about a family meeting tomorrow to decide upon further treatment of this stage. I discussed her ongoing care with Salima and importance to treat her mother rather than each independent disease. She appears to be stable while having tube feeds. Her renal function appears to be getting worse but I believe this is due to Lasix I have given on the last 2 days to test her arterial filling nex t day given increasing BNP and weights. However history much more consistent with dehydration. Review of Systems Review of Systems: All systems reviewed & are unremarkable except as noted in HPI & below Physical Exam Constitutional: well developed and + frail appearing; + not well nourished and no acute distress Eyes: + anicteric sclerae; normal pupil size ENMT: Mouth: + dry oral mucous membranes (Coresafe in place) Neck: trachea midline; neck nontender Respiratory: normal respiratory effort; no respiratory distress, no labored breathing, does not use accessory muscles and no cough Auscultation: + diminished lung sounds (Improved air entry b/l) and + rhonchi (throughout) Cardiovascular: Rate/Rhythm: regular rate and regular rhythm Heart Sounds: normal S1, normal S2 and + murmur (systolic throughout); no gallop and no cardiac rub Vessels: + JVD Extremities: normal capillary refill and + edema (1+ b/l) Gastrointestinal (Abdomen): Inspection/Auscultation: normal bowel sounds; abdomen not distended Percussion/Palpation: + abdomen tender (mild generalized, much improved) and abdomen soft; no guarding and abdomen not rigid Musculoskeletal: Spine: no cervical spinal tenderness, no thoracic spinal tenderness and no lumbar spinal tenderness Skin: no rashes, warm and dry Neurologic: moves all extremities and awake; no focal motor deficits, no meningeal signs and not confused (Improved from prior day) Speech / Cognition: normal cognition Motor/Sensory: no tremor, no pronator drift and no sensory deficit Psychiatric: Orientation: alert and oriented x 3 Eye Contact: good eye contact Affect: euthymic affect Lymphatic: no cervical or axillary lymphadenopathy Results & Data Vital Signs (Past 12 Hours) Vital Signs Temp Pulse Resp BP Pulse Ox 05/09/19 15:04 97.5 F L 60 16 111/66 93 05/09/19 07:24 98.2 F 63 20 107/66 99 PG Care Time/CCT Total # of Minutes Spent Total Time Spent with Patient: Total time spent is greater than 50% in coordination of care (as documented) at patient's floor/unit and/or counseling patient: (1) Anemia Anemia type: unspecified type Qualified Code(s): D64.9 - Anemia, unspecified (2) Dysphagia Dysphagia type: oropharyngeal phase Qualified Code(s): R13.12 - Dysphagia, oropharyngeal phase (3) Hypothermia Encounter type: subsequent encounter Qualified Code(s): T68.XXXD - Hypothermia, subsequent encounter (4) Aspiration pneumonia Aspiration pneumonia type: unspecified Laterality: bilateral Lung location: unspecified part of lung Qualified Code(s): J69.0 - Pneumonitis due to inhalation of food and vomit (5) Fecal retention Constipation type: slow transit constipation Qualified Code(s): K59.01 - Slow transit constipation
[2019-05-10] MEDS: CHECK SCOPOLAMINE PATCH PLACEMENT SCH ×4 (00:03→23:44)
[2019-05-10] MEDS: INSULIN ASPART 100 UNITS/ML 3 ML PEN SC SCH ×5 (00:32→23:43)
[2019-05-10] MEDS: FIBERSOURCE HN 1.2 CAL 1000 ML BAG NG SCH ×2 (03:41→23:44)
[2019-05-10] MEDS: LEVOTHYROXINE SODIUM 125 MCG TABLET PO SCH (06:09)
[2019-05-10 07:03] LABS: Basophils # (auto) 0.01 K/uL (0-0.2); Basophils % (auto) 0.2 %; Eosinophils # (auto) 0.25 K/uL (0-0.5); Eosinophils % (auto) 5.4 %; Hematocrit (blood only) 29.3 % (37-47); Hemoglobin 9.1 g/dL (12.0-16.0); Immature Granulocytes # (auto) 0.02 K/uL (0.00-0.02); Immature Granulocytes % (auto) 0.4 %; Lymphocytes # (auto) 0.45 K/uL (1.2-3.4); Lymphocytes % (auto) 9.8 %; Mean Corpuscular Hemoglobin 31.9 pg (25-34); Mean Corpuscular Hgb Conc 31.1 g/dL (32-36); Mean Corpuscular Volume 102.8 fL (80-100); Mean Platelet Volume 10.7 fL (7.4-10.4); Monocytes # (auto) 0.32 K/uL (0.11-0.59); Neutrophils # (auto) 3.55 K/uL (1.4-6.5); Neutrophils % (auto) 77.2 %; Platelet Count 110 K/uL (130-400); RDW Coefficient of Variation 18.5 % (11.5-14.5); RDW Standard Deviation 69.2 fL (36.4-46.3); Red Blood Count 2.85 M/uL (4.2-5.4)
[2019-05-10] MEDS: POLYETHYLENE (MIRALAX) 17 GM PACK NG SCH (07:21)
[2019-05-10 07:23] LABS: Basophilic Stippling 1+
[2019-05-10 07:34] LABS: Albumin Level 2.5 gm/dl (3.4-5.0); BUN Creatinine Ratio 23.1 (10-20); Creatinine Clr Calc Pharmacy 16.2 ml/min; Est GFR (African American) 21.8; Est GFR (Non-African American) 18.9; Magnesium 2.5 mg/dl (1.8-2.4)
[2019-05-10 07:36] LABS: Albumin Globulin Ratio 0.5 (0.9-2); Bilirubin,Total 0.5 mg/dl (0.2-1); Globulin 4.7 gm/dl (2.5-4.0); Phosphorus 3.4 mg/dl (2.5-4.9); Total Protein 7.2 gm/dl (6.4-8.2)
--- NOTE | 2019-05-10 08:30 | Communication Note ---
Date of Service: May 10, 2019 GI follow up - ongoing discussion regarding PEG tube. Pt awake, alert and answering questions appropriately. No family at bedside. Notes she did not give much thought to PEG tube over the weekend. Does not think she wants a permanent tube placed in body. We did discuss PEG placement procedure, risks/benefits, and safety of tube moving forward. Her biggest concern is chronicity of PEG tube placement. We did discuss that tube would need to be placed for about 8 weeks before consideration of D/C tube to decrease risk of infection, but that with her progressive dysphagia, PEG tube would likely be needed longer. We discussed that PEG placement would not eliminate her risk of aspiration completely given her copious amounts of secretions and the possibility of reflux. She then again suggests to me that she does not think she would want this tube in for the rest of her life. She notes she will re-discuss PEG tube with her family. Will follow. Please call with any questions or concerns. Thank you for allowing us to participate in the care of this patient. Please call with any acute changes, questions or concerns. Please see addendum below with additional recommendation from my supervising physician, Dr. Stover. I have seen and examined the patient with ANAMARIA Anderson whose note reflects our findings and plan. Progressive neruologic disorder. Difficulty swallowing. She is not sure she wants a PEG tube. She will discuss with her family when they arrive. Concern about the ascites noted on CT. If she decides she does want a PEG, primary service will need to get abd US to include liver and to assess for ascites. Ascites would be a contraindication to PEG.
[2019-05-10] MEDS: PIPERACILLIN/TAZOBACTAM 3.375 GM in DEXTROSE 5% 100 ML IV SCH ×2 (09:01→21:31)
[2019-05-10] MEDS: HEPARIN SOD 5,000 UNIT/0.5 ML VIAL SQ SCH ×2 (09:02→21:31)
[2019-05-10] MEDS: MULTI VIT W/MINERALS LIQUID 15 ML UDP PO SCH (09:02)
--- NOTE | 2019-05-10 15:31 | Palliative Care Progress Note ---
Date of Service May 10, 2019 Assessment & Plan (1) Goals of care, counseling/discussion: -Patient tolerating tube feedings via NG tube okay. Does not feel a whole lot different from them. -Patient is still wavering on her decision of whether or not pursue PEG tube. GI stopped by earlier today to discuss with patient as well. -I talked with patient and her daughter/POA, Salima. Patient's main concern seems to be the permanency of the PEG tube. GI CLINICAL NURSE OCCUPATIONAL MEDICINE notes that the tube would have to stay for at least 8 weeks. The only reason I can see that the tube would be removed is if patient decided she did not want to continue prolonging her life with tube feedings-- this dysphagia and aspiration risk is not a "fixable" issue, which the patient and daughter understand. Discussed the alternative: comfort feeding despite the risk of aspiration. We also talked about hospice care. -Family meeting to be held at 3pm to discuss with patient and her children. Of note, patient has a fairly rapidly progressive disease, so even with PEG tube/tube feedings, she may still qualify for home hospice. This was discussed with patient and her daughter. (2) Pseudobulbar palsy: (3) Aspiration pneumonia: Subjective Patient tolerated tube feedings okay over the weekend. She is sitting up in chair today during both of my visits-- once with her daughter Salima at bedside, once right after OT got her out of bed. Discussed PEG tube further-- family meeting at 3pm. See A&P as well as palliative physician's note. Review of Systems Review of Systems: Const: + weakness ENMT: No dysphagia, no choking during eating, occasionally feels like there is phlegm in her throat Resp: No SOB, no cough Cardio: No chest pain, no edema GI: No abdominal pain, no N/V MS: No musculoskeletal pain Neuro: No confusion, progressive weakness due to PSP Psych: No anxiety, no depression Physical Exam Constitutional: + ill appearing; no acute distress ENMT: external ear and nose normal, oropharynx normal Respiratory: normal respiratory effort; no labored breathing Cardiovascular: Rate/Rhythm: regular rate and regular rhythm Extremities: no edema Gastrointestinal (Abdomen): Inspection/Auscultation: normal bowel sounds Percussion/Palpation: abdomen soft; abdomen nontender Neurologic: moves all extremities and awake Psychiatric: Orientation: alert and oriented x 3 Results & Data Vital Signs (Past 12 Hours) Vital Signs Temp Pulse Pulse Resp BP BP Pulse Ox 05/10/19 11:32 36.6 C 80 20 114/71 100 05/10/19 09:01 93 05/10/19 09:00 73 L 05/10/19 07:37 36.3 C L 82 20 117/72 93 05/10/19 07:26 77 05/10/19 03:50 36.4 C L 61 18 113/64 100 Supervising Physician Co-Signing Physician Notes Chart reviewed, patient seen and examined, patient's daughter Melissa at bedside. Collaborated with ANAMARIA Toth. Had a family meeting involving all 4 children, Melissa at bedside, patient's son Rayshawn, daughters Bessy and Rubi by cell phone. Discussed G-tube at length-all children are in agreement along with the patient that we will not pursue a G-tube at this time. Patient tolerating NG feeds-may benefit from some mcc to increase strength and for family to learn transfer techniques so patient can return home safely. PE: Patient awake and alert, no acute distress Respirations: Clear breath sounds, unlabored CV: Regular rate Abdomen: Not distended, soft, nontender Neuro: Alert and oriented-able to participate in conversation with family. Agree with above note, assessment and plan as per ANAMARIA Toth-current plan is for no GT at this time. Dr. mark will see if patient can qualify for some skilled time to improve strength and transfers with ultimate goal to discharge home with home health and transition to hospice. PG Care Time/CCT Prolonged Care Time Prolonged Care Time: Yes Total Prolonged Care Time: 60 Time Spent Midlevel 35 minutes with >50% of the time spent at bedside with patient and family discussing condition and GOC. Attending Spent 60 minutes in addition to the 35 minutes spent by ANAMARIA Toth for a total of 95 minutes with greater than 50% of the time spent at bedside having a family meeting and discussing goals of care. Critical Care Time Prolonged Care Time Prolonged Care Time: Yes Total Prolonged Care Time: 60 95 (1) Aspiration pneumonia Aspiration pneumonia type: unspecified Laterality: bilateral Lung location: unspecified part of lung Qualified Code(s): J69.0 - Pneumonitis due to inhalation of food and vomit
--- NOTE | 2019-05-10 16:01 | Communication Note ---
Date of Service: May 10, 2019'' I saw Ms. 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
--- NOTE | 2019-05-10 17:50 | Hospitalist Progress Note ---
Date of Service May 10, 2019 Assessment & Plan (1) Goals of care, counseling/discussion: Appreciate gastroenterology, palliative and neurology consults. At this time, it appears patient is foregoing G-tube. Will discuss with palliative care team. At this moment will continue with NG tube feeding. Continuing antibiotics. Weaning off PSP medications as per neurology, although I think her Sinemet was also accidentally discontinued she appears to be doing fine if not better without this. Patient appears to have much more cognition and understanding of her medical conditions since admission. I do not expect her mental state to improve much more than her current state. (2) Aspiration pneumonia: Continue on IV Zosyn, suspect she will get recurrent pneumonia once this is finished. Discussion regarding antibiotics on future admissions to be discussed prior to discharge. Duonebs every 2 hours when necessary. See dysphagia below. (3) Dysphagia: Profound oropharyngeal dysphagia on video swallow to all liquids secondary to pseudobulbar palsy (see below). Appreciate neurology review. Prior diagnosis of aggressive supranuclear palsy however no gaze abnormalities on exam here off medication. 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 Appreciate neurology review of her current medical regimen. Weaning off and re-evaluating. (5) Hypoxia: Aim O2 sats > 94%. Secondary to chronic aspiration as above. (6) Hypothermia: Recurrent hypothermia - suspect secondary to infection. Although possibly dysregulation related to progressive supranuclear palsy. TSH WNL, continue home dose levothyroxine through coresafe. Cortisol 10.5 (7) Chronic kidney disease (CKD) stage G4/A1, severely decreased glomerular filtration rate (GFR) between 15-29 mL/min/1.73 square meter and albuminuria creatinine ratio less than 30 mg/g: At baseline but trending up, suspected dehydration given history. See discussion below regarding heart failure. (8) Hypothyroidism (acquired): Continue PO levothyroxine to be crushed down Coresafe NG (9) CAD (coronary artery disease), unga coronary artery: Status post four-vessel CABG. Not on antiplatelets due to previous GI bleed. No BB or ACEi/ARB due to orthostatic hypotension. Continue to hold atorvastatin as noncritical medication pending goals of care discussion. (10) Fecal retention: Resolved with MiraLAX dosing. Now having diarrhea on tube feeds. We will continue to monitor. (11) Central sleep apnea: Noted from prior documentation. We will continue to monitor on telemetry. (12) Anemia: Likely secondary to CKD. 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 Suspect this is the cause of her elevated MCV. Status post x1 unit PRBC transfusion. Hgb stable. I do not suspect an acute bleed. (13) Severe protein-calorie malnutrition: Appreciate dietary review and tube feeds recommendations. (14) Urinary retention: Suspect secondary to fecal retention, although this is now resolved. Will leave in for now given heart failure and need for accurate I&Os but suspect she will pass TWOC now fecal retention resolved. Plan to remove in the next 1 to 2 days depending on clinical course. (15) Chronic systolic right heart failure: Appreciate cardiology management of fluid status. Discussed with Dr. De Jesus. Will hold further diuretics at this time as Lasix has caused her creatinine to increase. (16) DVT prophylaxis: Heparin 5000 units SQ BID Continue SCDs Subjective 83 yo female is a poor historian. She states at this time she does not want a G- tube. She states she is currently tolerating her NG tube feeding. Family was not in the room at time of examination. Review of Systems Review of Systems: All systems reviewed & are unremarkable except as noted in HPI & below Physical Exam Physical Exam: Constitutional: well developed and + frail appearing; Eyes: + anicteric sclerae; normal pupil size ENMT: (Coresafe in place) Neck: trachea midline; neck nontender Respiratory: normal respiratory effort; no respiratory distress, no labored breathing, does not use accessory muscles and no cough Auscultation: + diminished lung sounds (Improved air entry b/l) Cardiovascular: Rate/Rhythm: regular rate and regular rhythm Heart Sounds: normal S1, normal S2 and + murmur (systolic throughout); no gallop and no cardiac rub Vessels: + JVD Extremities: normal capillary refill and + edema (1+ b/l) Gastrointestinal (Abdomen): Inspection/Auscultation: normal bowel sounds; abdomen not distended Percussion/Palpation: nontender and abdomen soft; no guarding and abdomen not rigid Skin: no rashes, warm and dry Neurologic: moves all extremities and awake; no focal motor deficits, no meningeal signs and not confused (Improved from prior day) Speech / Cognition: normal cognition Motor/Sensory: no tremor, no pronator drift and no sensory deficit Psychiatric: Orientation: alert and oriented x 3 Eye Contact: good eye contact Affect: euthymic affect Lymphatic: no cervical or axillary lymphadenopathy Results & Data Vital Signs (Past 12 Hours) Vital Signs Temp Pulse Pulse Resp BP BP Pulse Ox 05/10/19 16:36 36.7 C 60 16 127/64 100 05/10/19 11:32 36.6 C 80 20 114/71 100 05/10/19 09:01 93 05/10/19 09:00 73 L 05/10/19 07:37 36.3 C L 82 20 117/72 93 05/10/19 07:26 77 PG Care Time/CCT Total # of Minutes Spent Total Time Spent with Patient: Total time spent is greater than 50% in coordination of care (as documented) at patient's floor/unit and/or counseling patient: (1) Aspiration pneumonia Aspiration pneumonia type: unspecified Laterality: bilateral Lung location: unspecified part of lung Qualified Code(s): J69.0 - Pneumonitis due to inhalation of food and vomit (2) Dysphagia Dysphagia type: oropharyngeal phase Qualified Code(s): R13.12 - Dysphagia, oropharyngeal phase (3) Hypothermia Encounter type: subsequent encounter Qualified Code(s): T68.XXXD - Hypother sal, subsequent encounter (4) Fecal retention Constipation type: slow transit constipation Qualified Code(s): K59.01 - Slow transit constipation (5) Anemia Anemia type: unspecified type Qualified Code(s): D64.9 - Anemia, unspecified
[2019-05-11] MEDS: LEVOTHYROXINE SODIUM 125 MCG TABLET PO SCH (05:39)
[2019-05-11] MEDS: INSULIN ASPART 100 UNITS/ML 3 ML PEN SC SCH ×4 (06:35→20:13)
[2019-05-11 06:44] LABS: Basophils # (auto) 0.01 K/uL (0-0.2); Basophils % (auto) 0.3 %; Eosinophils # (auto) 0.17 K/uL (0-0.5); Eosinophils % (auto) 4.4 %; Hematocrit (blood only) 32.3 % (37-47); Hemoglobin 9.9 g/dL (12.0-16.0); Immature Granulocytes # (auto) 0.01 K/uL (0.00-0.02); Immature Granulocytes % (auto) 0.3 %; Lymphocytes # (auto) 0.44 K/uL (1.2-3.4); Lymphocytes % (auto) 11.5 %; Mean Corpuscular Hemoglobin 31.6 pg (25-34); Mean Corpuscular Hgb Conc 30.7 g/dL (32-36); Mean Corpuscular Volume 103.2 fL (80-100); Mean Platelet Volume 10.9 fL (7.4-10.4); Monocytes # (auto) 0.29 K/uL (0.11-0.59); Monocytes % (auto) 7.6 %; Neutrophils # (auto) 2.92 K/uL (1.4-6.5); Neutrophils % (auto) 75.9 %; Platelet Count 115 K/uL (130-400); RDW Coefficient of Variation 18.7 % (11.5-14.5); RDW Standard Deviation 69.8 fL (36.4-46.3); Red Blood Count 3.13 M/uL (4.2-5.4); White Blood Count 3.84 K/uL (4.8-10.8)
[2019-05-11 07:07] LABS: Anisocytosis Present
[2019-05-11 07:21] LABS: BUN Creatinine Ratio 22.9 (10-20); Calcium 9.5 mg/dl (8.5-10.1); Creatinine Clr Calc Pharmacy 17.5 ml/min; Est GFR (Non-African American) 20.7; Magnesium 2.4 mg/dl (1.8-2.4); Potassium 4.4 mmol/L (3.5-5.1)
[2019-05-11 07:24] LABS: Albumin Globulin Ratio 0.6 (0.9-2); Bilirubin,Total 0.6 mg/dl (0.2-1); Globulin 5.4 gm/dl (2.5-4.0); Phosphorus 2.7 mg/dl (2.5-4.9); Total Protein 8.4 gm/dl (6.4-8.2)
[2019-05-11] MEDS: PIPERACILLIN/TAZOBACTAM 3.375 GM in DEXTROSE 5% 100 ML IV SCH ×2 (07:57→20:06)
[2019-05-11] MEDS: MULTI VIT W/MINERALS LIQUID 15 ML UDP PO SCH (08:01)
[2019-05-11] MEDS: HEPARIN SOD 5,000 UNIT/0.5 ML VIAL SQ SCH ×2 (08:01→20:07)
[2019-05-11] MEDS: POLYETHYLENE (MIRALAX) 17 GM PACK NG SCH (08:04)
[2019-05-11] MEDS: CHECK SCOPOLAMINE PATCH PLACEMENT SCH ×3 (08:10→23:58)
--- NOTE | 2019-05-11 09:43 | Communication Note ---
Date of Service: May 11, 2019 Pt was seen, ongoing discussion regarding PEG tube. She is OOB, in chair. She tells me she wants her coresaf tube out and does not want PEG tube placement. Will discuss w/ primary team. Will sign off - recall if needed.
--- NOTE | 2019-05-11 10:57 | Palliative Care Progress Note ---
Date of Service May 11, 2019 Assessment & Plan (1) Goals of care, counseling/discussion: -Upon entering patient's room this morning, she was sitting up in chair. Awake and alert. -Patient has moist cough and audible secretions. Lungs sound much worse with rhonchi throughout. -Cxr ordered which is consistent with aspiration. This was discussed with the patient and her daughter, Salima. -Decision has been made to stop tube feedings and remove NG tube. Allow comfort feeding despite the risk of aspiration. -Discussed recurrence of aspiration and risk of continued pneumonias-- patient and daughter understanding. Patient's main goal is to get home and be comfortable. -Discussed home hospice-- this is what patient would like to do. No longer wants to go to SNF. Case management will make referral to hospice agency. -Currently, patient is managing secretions. However, if she has trouble, would order Atropine 1% oph soln 4 drops SL Q1h PRN secretions. Won't order now so that we don't dry patient out. -If SOB becomes an issue, can order some Roxanol as needed. Patient currently denies pain or SOB. -Support given to patient and daughter. Patient told me on several occasions, including when in the room alone, that she has no concerns about going home with her daughter Salima. (2) Pseudobulbar palsy: (3) Aspiration pneumonia: Subjective Patient has increased moist cough today. No SOB. Visited room multiple times today, daughter Salima present during last visit. Review of Systems Review of Systems: Const: + weakness ENMT: increased oral/tracheal secretions Resp: No SOB, +moist cough Cardio: No chest pain, no edema GI: No abdominal pain, no N/V MS: No musculoskeletal pain Neuro: No confusion, progressive weakness due to PSP Psych: No anxiety, no depression Physical Exam Constitutional: + ill appearing; no acute distress ENMT: external ear and nose normal, oropharynx normal Respiratory: normal respiratory effort; no labored breathing Auscultation: + rhonchi moist cough Cardiovascular: Rate/Rhythm: regular rate and regular rhythm Extremities: no edema Gastrointestinal (Abdomen): Inspection/Auscultation: normal bowel sounds Percussion/Palpation: abdomen soft; abdomen nontender Neurologic: moves all extremities and awake Psychiatric: Orientation: alert and oriented x 3 Results & Data Vital Signs (Past 12 Hours) Vital Signs Temp Pulse Resp BP Pulse Ox 11/19/19 07:54 36.8 C 86 18 128/74 100 05/11/19 03:27 36.8 C 82 18 127/73 94 05/10/19 23:38 36.8 C 82 18 130/75 93 Supervising Physician Co-Signing Physician Notes Patient seen and examined, patient's daughter Katarina, at bedside. Collaborated with ANAMARIA Toth Patient with clinical evidence as well as chest x-ray evidence of aspiration on her NG feeds-NG tube feeds have been stopped. Plan is for discharge home with hospice. PE: Patient awake and alert, no acute distress HEENT: EOMI, hearing within normal limits Respirations: Unlabored, coarse rhonchi bilaterally-cleared on left after cough CV: Regular rate Abdomen: Soft, nontender Neuro: Alert and oriented, speech slow, mild dysarthria Agree with above note, assessment and plan as per ANAMARIA Toth-will continue to follow and facilitate discharge planning. PG Care Time/CCT Prolonged Care Time Prolonged Care Time: Yes Total Prolonged Care Time: 70 Time Spent Midlevel 70 minutes with >50% of time spent at bedside with patient and family discussing condition and GOC during multiple visits. Attending Spent 25 minutes in addition to this 70 minutes spent by ANAMARIA Toth for a total of 95 minutes with greater than 50% of the time spent at bedside discussing patient's current condition and goals of care. (1) Aspiration pneumonia Aspiration pneumonia type: unspecified Laterality: bilateral Lung location: unspecified part of lung Qualified Code(s): J69.0 - Pneumonitis due to inhalation of food and vomit
--- NOTE | 2019-05-11 11:12 | XRay Report ---
XR chest 1V portable CLINICAL HISTORY: possible aspiration dyspnea COMPARISON STUDY: 05/06/2019 FINDINGS: Increasing density left lung base. Unchanged parenchymal infiltrative process right base. Mid and upper lungs are considered clear. Mild stable cardiac megaly. Prior median sternotomy. IMPRESSION: 1. Developing parenchymal infiltrate and/or atelectatic change left base. 2. Unchanging parenchymal infiltrate right base. The above report was generated using voice recognition software. It may contain grammatical, syntax or spelling errors. Electronically signed by: Dheeraj Galeana M.D. 05/11/2019 11:11 AM
--- NOTE | 2019-05-11 15:42 | Infectious Disease Progress Nt ---
Date of Service May 11, 2019 Assessment & Plan (1) Aspiration pneumonia: Patient with recurrent aspiration with no nausea, now status post 8 days of antibiotics. May touch with his consideration for May discontinuation or transition to oral antibiotics. Will discuss with all involved. Will continue to follow. Subjective Patient seen in follow-up for aspiration pneumonia. Now considering removal of NG tube only and hospice care. Lung sounds are clear today, remains afebrile. Review of Systems Review of Systems: All systems reviewed & are unremarkable except as noted in HPI & below Physical Exam Constitutional: + ill appearing; no acute distress Eyes: PERRL, conjunctivae normal, anicteric sclerae ENMT: external ear and nose normal, oropharynx normal Neck: trachea midline, no thyromegaly Respiratory: no respiratory distress and does not use accessory muscles Auscultation: + rhonchi Cardiovascular: Rate/Rhythm: regular rate and regular rhythm Heart Sounds: no murmur Gastrointestinal (Abdomen): normal bowel sounds, soft, nontender, no hepatosplenomegaly Musculoskeletal: Head/Neck/Chest: normocephalic, head atraumatic and neck supple Skin: no rashes, warm and dry Neurologic: moves all extremities and awake; no focal motor deficits Psychiatric: A+Ox3, euthymic affect Lymphatic: no cervical or axillary lymphadenopathy no inguinal lymphadenopathy Results & Data Vital Signs (Past 12 Hours) Vital Signs Temp Pulse Resp BP Pulse Ox 05/11/19 15:21 36.5 C 64 16 123/81 99 05/11/19 11:34 36.5 C 71 24 128/79 97 05/11/19 07:54 36.8 C 86 18 128/74 100 PG Care Time/CCT Total # of Minutes Spent Total Time Spent with Patient: Total time spent is greater than 50% in coordination of care (as documented) at patient's floor/unit and/or counseling patient: (1) Aspiration pneumonia Aspiration pneumonia type: unspecified Laterality: bilateral Lung location: unspecified part of lung Qualified Code(s): J69.0 - Pneumonitis due to inhalation of food and vomit
[2019-05-11] MEDS ORDERED: Nursing to Pharmacy Communication ONE ×2 (16:48→17:28)
--- NOTE | 2019-05-11 22:59 | Hospitalist Progress Note ---
Date of Service May 11, 2019 Assessment & Plan (1) Goals of care, counseling/discussion: Appreciate gastroenterology, palliative and neurology consults. GI and Neuro have signed off. Patient will have NG tube removed, Patient has been silently aspirating as shown by her new chest x-ray today. Patient does not want a G tube either. Patient will like to try comfort feeds. Patient was awake, showing understanding of the situation. Plan is to transition patient to hospice. Discussed with palliative care.. Continuing antibiotics. Stopped PSP medications as per neurology,as patient has been more awake. Patient appears to have much more cognition and understanding of her medical c onditions since admission. I do not expect her mental state to improve much more than her current state. (2) Aspiration pneumonia: Continue on IV Zosyn, suspect she will get recurrent pneumonia once this is finished. Discussion regarding antibiotics on future admissions to be discussed prior to discharge. Duonebs every 2 hours when necessary. See dysphagia below. (3) Dysphagia: Profound oropharyngeal dysphagia on video swallow to all liquids secondary to pseudobulbar palsy (see below). Appreciate neurology review. Prior diagnosis of aggressive supranuclear palsy however no gaze abnormalities on exam here off medication. 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 Appreciate neurology review of her current medical regimen. Weaning off and re-evaluating. (5) Hypoxia: Aim O2 sats > 94%. Secondary to chronic aspiration as above. (6) Hypothermia: Recurrent hypothermia - suspect secondary to infection. Although possibly dysregulation related to progressive supranuclear palsy. TSH WNL, continue home dose levothyroxine through coresafe. Cortisol 10.5 (7) Chronic kidney disease (CKD) stage G4/A1, severely decreased glomerular filtration rate (GFR) between 15-29 mL/min/1.73 square meter and albuminuria creatinine ratio less than 30 mg/g: At baseline but trending up, suspected dehydration given history. See discussion below regarding heart failure. (8) Hypothyroidism (acquired): Continue PO levothyroxine to be crushed down Coresafe NG (9) CAD (coronary artery disease), [place] coronary artery: Status post four-vessel CABG. Not on antiplatelets due to previous GI bleed. No BB or ACEi/ARB due to orthostatic hypotension. Continue to hold atorvastatin as noncritical medication pending goals of care discussion. (10) Fecal retention: Resolved with MiraLAX dosing. Now having diarrhea on tube feeds. We will continue to monitor. (11) Central sleep apnea: Noted from prior documentation. . (12) Anemia: Likely secondary to CKD. Review [facility] records show erythropoietin prescribed by her interactive developer. Suspect this is the cause of her elevated MCV. Status post x1 unit PRBC transfusion. Hgb stable. I do not suspect an acute bleed. (13) Severe protein-calorie malnutrition: Appreciate dietary review. (14) Urinary retention: Suspect secondary to fecal retention, although this is now resolved. Will leave in for now given heart failure and need for accurate I&Os but suspect she will pass TWOC now fecal retention resolved. Plan to remove in the next 1 to 2 days depending on clinical course. (15) Chronic systolic right heart failure: Appreciate cardiology management of fluid status. Discussed with Dr. De Jesus. Will hold further diuretics at this time as Lasix has caused her creatinine to increase. (16) DVT prophylaxis: Heparin 5000 units SQ BID Continue SCDs will transfer out of Tele. Subjective Patient has stated throughout the morning to nursing staff that she would like the NG tube removed. Had conversation with daughter Jose at bedside. After discussing that she has been aspirating even with her NG tube, patient is open to have NG tube removed and be on comfort feeds. Patient denies any new symptoms at this time. Review of Systems Review of Systems: All systems reviewed & are unremarkable except as noted in HPI & below Physical Exam Physical Exam: Constitutional: well developed and + frail appearing; Eyes: + anicteric sclerae; normal pupil size ENMT: (Coresafe in place) Neck: trachea midline; neck nontender Respiratory: normal respiratory effort; no respiratory distress, no labored breathing, does not use accessory muscles and no cough Auscultation: + diminished lung sounds (Improved air entry b/l) Cardiovascular: Rate/Rhythm: regular rate and regular rhythm Heart Sounds: normal S1, normal S2 and + murmur (systolic throughout); no gallop and no cardiac rub Vessels: + JVD Extremities: normal capillary refill and + edema (1+ b/l) Gastrointestinal (Abdomen): Inspection/Auscultation: normal bowel sounds; abdomen not distended Percussion/Palpation: nontender and abdomen soft; no guarding and abdomen not rigid Skin: no rashes, warm and dry Neurologic: moves all extremities and awake; no focal motor deficits, no meningeal signs and not confused (Improved from prior day) Speech / Cognition: normal cognition Motor/Sensory: no tremor, no pronator drift and no sensory deficit Psychiatric: Orientation: alert Eye Contact: good eye contact Affect: euthymic affect Lymphatic: no cervical or axillary lymphadenopathy Results & Data Vital Signs (Past 12 Hours) Vital Signs Temp Pulse Resp BP Pulse Ox 05/11/19 16:43 36.7 C 65 18 115/67 97 05/11/19 15:21 36.5 C 64 16 123/81 99 05/11/19 11:34 36.5 C 71 24 128/79 97 PG Care Time/CCT Total # of Minutes Spent Total Time Spent with Patient: Total time spent is greater than 50% in coordination of care (as documented) at patient's floor/unit and/or counseling patient: (1) Anemia Anemia type: unspecified type Qualified Code(s): D64.9 - Anemia, unspecified (2) Dysphagia Dysphagia type: oropharyngeal phase Qualified Code(s): R13.12 - Dysphagia, oropharyngeal phase (3) Hypothermia Encounter type: subsequent encounter Qualified Code(s): T68.XXXD - Hypothermia, subsequent encounter (4) Aspiration pneumonia Aspiration pneumonia type: unspecified Laterality: bilateral Lung location: unspecified part of lung Qualified Code(s): J69.0 - Pneumonitis due to inhalation of food and vomit (5) Fecal retention Constipation type: slow transit constipation Qualified Code(s): K59.01 - Slow transit constipation
[2019-05-12] MEDS: LEVOTHYROXINE SODIUM 125 MCG TABLET PO SCH (06:06)
[2019-05-12 06:14] LABS: Eosinophils # (auto) 0.18 K/uL (0-0.5); Eosinophils % (auto) 6.7 %; Hemoglobin 9.2 g/dL (12.0-16.0); Immature Granulocytes # (auto) 0.01 K/uL (0.00-0.02); Immature Granulocytes % (auto) 0.4 %; Lymphocytes % (auto) 22.5 %; Mean Corpuscular Hemoglobin 31.6 pg (25-34); Mean Corpuscular Hgb Conc 30.7 g/dL (32-36); Mean Corpuscular Volume 103.1 fL (80-100); Mean Platelet Volume 10.9 fL (7.4-10.4); Monocytes # (auto) 0.31 K/uL (0.11-0.59); Monocytes % (auto) 11.6 %; Neutrophils # (auto) 1.57 K/uL (1.4-6.5); Neutrophils % (auto) 58.8 %; Platelet Count 103 K/uL (130-400); RDW Coefficient of Variation 18.6 % (11.5-14.5); RDW Standard Deviation 69.5 fL (36.4-46.3); Red Blood Count 2.91 M/uL (4.2-5.4); White Blood Count 2.67 K/uL (4.8-10.8)
[2019-05-12 06:45] LABS: Albumin Level 2.7 gm/dl (3.4-5.0); BUN Creatinine Ratio 23.9 (10-20); Calcium 9.4 mg/dl (8.5-10.1); Creatinine Clr Calc Pharmacy 19.2 ml/min; Est GFR (African American) 26.9; Est GFR (Non-African American) 23.2; Magnesium 2.2 mg/dl (1.8-2.4); Potassium 4.3 mmol/L (3.5-5.1)
[2019-05-12 06:47] LABS: Albumin Globulin Ratio 0.5 (0.9-2); Bilirubin,Total 0.6 mg/dl (0.2-1); Globulin 5.2 gm/dl (2.5-4.0); Phosphorus 2.7 mg/dl (2.5-4.9); Total Protein 7.9 gm/dl (6.4-8.2)
[2019-05-12 07:04] LABS: Platelet Estimate Decreased (Normal); RBC Morphology Unremarkable
[2019-05-12] MEDS: INSULIN ASPART 100 UNITS/ML 3 ML PEN SC SCH ×4 (09:13→20:57)
[2019-05-12] MEDS: MULTI VIT W/MINERALS LIQUID 15 ML UDP PO SCH ×2 (09:14→09:59)
[2019-05-12] MEDS: CHECK SCOPOLAMINE PATCH PLACEMENT SCH ×2 (09:14→16:30)
[2019-05-12] MEDS: PIPERACILLIN/TAZOBACTAM 3.375 GM in DEXTROSE 5% 100 ML IV SCH ×2 (09:28→19:38)
[2019-05-12] MEDS: HEPARIN SOD 5,000 UNIT/0.5 ML VIAL SQ SCH ×2 (09:32→20:56)
[2019-05-12] MEDS: POLYETHYLENE (MIRALAX) 17 GM PACK NG SCH (09:59)
--- NOTE | 2019-05-12 13:27 | Palliative Care Progress Note ---
Date of Service May 12, 2019 Assessment & Plan (1) Goals of care, counseling/discussion: -Patient was sitting in her bed, resting in no apparent distress when I, and Dr. Castaneda entered the room. -Patient states she is feeling better since NGT was removed. -Pt has applesauce, thickened liquid drink, and pudding on her bedside table. I asked if she could take a bite for me but she declined wanting to do so. She coughed intermittently with productive thick yellow sputum when we were in the room. -Patient eager to return home, which is planned for tomorrow, 05/[address] [facility]. Case management aranging. -Continued to discuss known aspiration risk and patient remains comfortable about this since the conversation yesterday regarding not pursuing a PEG tube. -Currently, patient is managing secretions. However, if she has trouble, would order Atropine 1% oph soln 4 drops SL Q1h PRN secretions. Won't order now so that we don't dry patient out. -If SOB becomes an issue, can order some Roxanol as needed. Patient currently denies pain or SOB. -Patient daughter did visit the patient after I left her room, but I was unable to connect with her. -Please contact Palliative Care for any additional needs prior to her discharge. -PPS 30% (2) Pseudobulbar palsy: (3) Aspiration pneumonia: Subjective Patient resting today. Feeling better since NGT was removed. Pt has applesauce, thickened liquid drink, and pudding on her bedside table. Pt states she has a productive cough, describes it as thick yellow. Able to clear her own secretions. Please see A/P for further information Review of Systems Review of Systems: Const: + weakness ENMT: increased oral/tracheal secretions Resp: No SOB, +productive cough Cardio: No chest pain, no edema GI: No abdominal pain, no N/V MS: No musculoskeletal pain Neuro: No confusion, progressive weakness due to PSP Psych: No anxiety, no depression Physical Exam Constitutional: + thin, comfortable and + lethargic Respiratory: + cough (productive. yellow sputum ) Auscultation: + rales and + rhonchi Cardiovascular: RRR, no murmur, no edema Gastrointestinal (Abdomen): normal bowel sounds, soft, nontender, no hepatosplenomegaly Skin: no rashes, warm and dry Psychiatric: A+Ox3, euthymic affect Genitourinary: indwelling norman. dark kaylyn urine Results & Data Vital Signs (Past 12 Hours) Vital Signs Temp Pulse Resp BP Pulse Ox 05/12/19 07:14 36.5 C 65 18 123/82 95 PG Care Time/CCT Total # of Minutes Spent Total Time Spent with Patient: Total time spent is greater than 50% in coordination of care (as documented) at patient's floor/unit and/or counseling patient: 35 Time Spent Midlevel Total time spent 35 minutes with > 50% of that time spent assessing the patient, discussing goals of care and discharge planning with the patient. (1) Aspiration pneumonia Aspiration pneumonia type: unspecified Laterality: bilateral Lung location: unspecified part of lung Qualified Code(s): J69.0 - Pneumonitis due to inhalation of food and vomit
[2019-05-12] MEDS: SCOPOLAMINE 1.5 MG TDSY TD SCH (17:08)
--- NOTE | 2019-05-12 22:30 | Hospitalist Progress Note ---
Date of Service May 12, 2019 Assessment & Plan (1) Goals of care, counseling/discussion: Appreciate gastroenterology, palliative and neurology consults. GI and Neuro have signed off. Patient had NG tube removed, as patient has been silently aspirating as shown by her new chest x-ray today. Patient does not want a G tube either. Patient is trying comfort feeds. Patient was awake, showing understanding of the situation. Plan is to transition patient to hospice. Discussed with palliative care.. Continuing antibiotics. Stopped PSP medications as per neurology,as patient has been more awake. Patient appears to have much more cognition and understanding of her medical conditions since admission. I do not expect her mental state to improve much more than her current state. (2) Aspiration pneumonia: Continue on IV Zosyn, suspect she will get recurrent pneumonia once this is finished. Discussion regarding antibiotics on future admissions to be discussed prior to discharge. Duonebs every 2 hours when necessary. See dysphagia below. (3) Dysphagia: Profound oropharyngeal dysphagia on video swallow to all liquids secondary to pseudobulbar palsy (see below). Appreciate neurology review. Prior diagnosis of aggressive supranuclear palsy however no gaze abnormalities on exam here off medication. 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 Appreciate neurology review of her current medical regimen. Weaning off and re-evaluating. (5) Hypoxia: Aim O2 sats > 94%. Secondary to chronic aspiration as above. (6) Hypothermia: Recurrent hypothermia - suspect secondary to infection. Although possibly dysregulation related to progressive supranuclear palsy. TSH WNL, continue home dose levothyroxine through coresafe. Cortisol 10.5 (7) Chronic kidney disease (CKD) stage G4/A1, severely decreased glomerular filt ration rate (GFR) between 15-29 mL/min/1.73 square meter and albuminuria creatinine ratio less than 30 mg/g: At baseline but trending up, suspected dehydration given history. See discussion below regarding heart failure. (8) Hypothyroidism (acquired): Continue PO levothyroxine to be crushed down Coresafe NG (9) CAD (coronary artery disease), [place] coronary artery: Status post four-vessel CABG. Not on antiplatelets due to previous GI bleed. No BB or ACEi/ARB due to orthostatic hypotension. Continue to hold atorvastatin as noncritical medication pending goals of care discussion. (10) Fecal retention: Resolved with MiraLAX dosing. Now having diarrhea on tube feeds. We will continue to monitor. (11) Central sleep apnea: Noted from prior documentation. . (12) Anemia: Likely secondary to CKD. Review [facility] records show erythropoietin prescribed by her senior accounting clerk. Suspect this is the cause of her elevated MCV. Status post x1 unit PRBC transfusion. Hgb stable. I do not suspect an acute bleed. (13) Severe protein-calorie malnutrition: Appreciate dietary review. (14) Urinary retention: Suspect secondary to fecal retention, although this is now resolved. Will leave in for now given heart failure and need for accurate I&Os but suspect she will pass TWOC now fecal retention resolved. Plan to remove in the next 1 to 2 days depending on clinical course. (15) Chronic systolic right heart failure: Appreciate cardiology management of fluid status. Discussed with Dr. De Jesus. Will hold further diuretics at this time as Lasix has caused her creatinine to increase. (16) DVT prophylaxis: Heparin 5000 units SQ BID Continue SCDs dispo: Plan is to discharge her home tomorrow with hospice Subjective Patient reports no new symptoms. Review of Systems Review of Systems: All systems reviewed & are unremarkable except as noted in HPI & below Physical Exam Physical Exam: Constitutional: well developed and + frail appearing; Eyes: + anicteric sclerae; normal pupil size Neck: trachea midline; neck nontender Respiratory: normal respiratory effort; no respiratory distress, no labored breathing, does not use accessory muscles and no cough Auscultation: + dimini shed lung sounds (Improved air entry b/l) Cardiovascular: Rate/Rhythm: regular rate and regular rhythm Heart Sounds: normal S1, normal S2 and + murmur (systolic throughout); no gallop and no cardiac rub Vessels: + JVD Extremities: normal capillary refill and + edema (1+ b/l) Gastrointestinal (Abdomen): Inspection/Auscultation: normal bowel sounds; abdomen not distended Percussion/Palpation: nontender and abdomen soft; no guarding and abdomen not rigid Skin: no rashes, warm and dry Neurologic: moves all extremities and awake; no focal motor deficits, no meningeal signs and not confused (Improved from prior day) Speech / Cognition: normal cognition Motor/Sensory: no tremor, no pronator drift and no sensory deficit Psychiatric: Orientation: alert Eye Contact: good eye contact Affect: euthymic affect Lymphatic: no cervical or axillary lymphadenopathy Results & Data Vital Signs (Past 12 Hours) Vital Signs Temp Pulse Resp BP Pulse Ox 05/12/19 22:26 36.7 C 70 20 121/79 99 05/12/19 15:10 36.4 C L 85 16 120/71 94 PG Care Time/CCT Total # of Minutes Spent Total Time Spent with Patient: Total time spent is greater than 50% in coordination of care (as documented) at patient's floor/unit and/or counseling patient: (1) Anemia Anemia type: unspecified type Qualified Code(s): D64.9 - Anemia, unspecified (2) Dysphagia Dysphagia type: oropharyngeal phase Qualified Code(s): R13.12 - Dysphagia, oropharyngeal phase (3) Hypothermia Encounter type: subsequent encounter Qualified Code(s): T68.XXXD - Hypothermia, subsequent encounter (4) Aspiration pneumonia Aspiration pneumonia type: unspecified Laterality: bilateral Lung location: unspecified part of lung Qualified Code(s): J69.0 - Pneumonitis due to inhalation of food and vomit (5) Fecal retention Constipation type: slow transit constipation Qualified Code(s): K59.01 - Slow transit constipation
[2019-05-13] MEDS: CHECK SCOPOLAMINE PATCH PLACEMENT SCH ×2 (00:05→09:40)
[2019-05-13] MEDS: LEVOTHYROXINE SODIUM 125 MCG TABLET PO SCH (06:01)
[2019-05-13 07:15] LABS: Creatinine Clr Calc Pharmacy 19.6 ml/min; Est GFR (African American) 27.6; Est GFR (Non-African American) 23.8; Phosphorus 2.7 mg/dl (2.5-4.9)
[2019-05-13] MEDS: INSULIN ASPART 100 UNITS/ML 3 ML PEN SC SCH ×2 (09:11→12:58)
[2019-05-13] MEDS: MULTI VIT W/MINERALS LIQUID 15 ML UDP PO SCH ×2 (09:40→09:48)
[2019-05-13] MEDS: HEPARIN SOD 5,000 UNIT/0.5 ML VIAL SQ SCH (09:42)
[2019-05-13] MEDS: POLYETHYLENE (MIRALAX) 17 GM PACK NG SCH (09:46)
[2019-05-13] MEDS: ONDANSETRON INJ 2 MG/ML 2 ML VIAL IV PRN (11:31)
--- NOTE | 2019-05-13 12:56 | Palliative Care Progress Note ---
Date of Service May 13, 2019 Assessment & Plan (1) Goals of care, counseling/discussion: -Plan is for home with hospice today. -Aspiration continues and patient's lungs/cough are sounding worse. I believe she will decline quickly which I have shared several times with patient and daughter. -Script for Roxanol PRN is being ordered prior to discharge by attending physician. -Case management is coordinating hospice discharge. Daughter Salima to provide transportation. -Please contact us with any further palliative care needs. (2) Pseudobulbar palsy: (3) Aspiration pneumonia: Subjective Patient has audible secretions and coarse cough. Plan is for home with hospice today. Review of Systems Review of Systems: Const: + weakness ENMT: increased oral/tracheal secretions Resp: No SOB, +moist cough Cardio: No chest pain, no edema GI: No abdominal pain, no N/V MS: No musculoskeletal pain Neuro: No confusion, progressive weakness due to PSP Psych: No anxiety, no depression Physical Exam Constitutional: + ill appearing ENMT: external ear and nose normal, oropharynx normal Respiratory: normal respiratory effort; no labored breathing Auscultation: + rhonchi coarse cough Cardiovascular: Rate/Rhythm: regular rate and regular rhythm Extremities: no edema Gastrointestinal (Abdomen): Inspection/Auscultation: normal bowel sounds Percussion/Palpation: abdomen soft; abdomen nontender Neurologic: moves all extremities and awake Psychiatric: Orientation: alert and oriented x 3 Results & Data Vital Signs (Past 12 Hours) Vital Signs Temp Pulse Resp BP Pulse Ox 05/13/19 12:12 37 C 94 H 24 143/82 H 99 05/13/19 07:34 36.9 C 88 20 137/82 95 Time Spent Midlevel 25 minutes with >50% of the time spent at bedside with patient and IDT discussing coordinating plan of care. (1) Aspiration pneumonia Aspiration pneumonia type: unspecified Laterality: bilateral Lung location: unspecified part of lung Qualified Code(s): J69.0 - Pneumonitis due to inhalation of food and vomit
--- NOTE | 2019-05-14 12:11 | Discharge Summary ---
Date of Service May 13, 2019 Admission HPI Per Admitting Provider The patient is an 83 yo female, discharged yesterday from rehab at [facility] following hospitalization from 04/04-04/09 for acute metabolic encephalopathy thought due to combination of UTI and aspiration pneumonia. The patient was seen by home health nursing today at home, was found to have a very low body temperature, and was referred into the ED for assessment. Daughter reports that the mother has had a loss of appetite, had difficulty ambulating even with her walker, has had persistent shaking of her left hand and has had constipation issues. The daughter also reports that her mother was given medications to help her swallowing difficulties, but was never told that that her mother had Parkinson's disease. The patient herself does not respond to questions that are asked, and the daughter serves as the principal source of HPI and review of systems. Principal Diagnosis recurrent aspiration pneumonia Discharge Exam Constitutional: well developed and + frail appearing; Eyes: + anicteric sclerae; normal pupil size Neck: trachea midline; neck nontender Respiratory: normal respiratory effort; no respiratory distress, no labored breathing, does not use accessory muscles and no cough Cardiovascular: Rate/Rhythm: regular rate and regular rhythm Heart Sounds: normal S1, normal S2 and + murmur (systolic throughout); no gallop and no cardiac rub Gastrointestinal (Abdomen): Inspection/Auscultation: normal bowel sounds; abdomen not distended Percussion/Palpation: nontender and abdomen soft; no guarding and abdomen not rigid Skin: no rashes, warm and dry Neurologic: moves all extremities and awake; no focal motor deficits, no meningeal signs and not confused peech / Cognition: normal cognition Motor/Sensory: no tremor, no pronator drift and no sensory deficit Psychiatric: Orientation: alert Eye Contact: good eye contact Affect: euthymic affect Lymphatic: no cervical or axillary lymphadenopathy Discharge Data Allergies Allergy/AdvReac Type Severity Reaction Status Date / Time esomeprazole Allergy Unknown Verified 05/05/19 17:03 sulfamethoxazole Allergy Unknown Verified 05/05/19 17:03 [From Bactrim] trimethoprim [From Bactrim] Allergy Unknown Verified 05/05/19 17:03 Consultations 05/05/19 18:32 ED Decision to Admit Stat 05/05/19 20:03 ED Decision to Admit Stat 05/05/19 22:17 Consult Case Management - Discharge Planning Routine Consult Infectious Diseases Routine 05/06/19 08:47 Consult Health Information Management Routine 05/06/19 13:25 Consult Palliative Care Routine 05/06/19 13:48 Consult Gastroenterology Routine 05/07/19 13:29 Consult Neurology Routine 05/08/19 18:40 Consult Cardiology Routine Ordered Studies 05/05/19 16:02 CT head/brain wo con Stat 05/05/19 21:11 CT chest wo con Stat 05/06/19 10:30 FL video swallow Routine 05/06/19 13:33 CT abd pelvis wo con Stat Hospital Course (1) Goals of care, counseling/discussion: Appreciate gastroenterology, palliative and neurology consults. GI and Neuro have signed off. Patient had NG tube removed, as patient has been silently aspirating as shown by her new chest x-ray today. Patient does not want a G tube either. Patient is trying comfort feeds. Patient was awake, showing understanding of the situation. Plan is to transition patient to hospice. will be discharged today. COMFORT MEDICATIONS WERE SENT TO THE PHARMACY Discussed with palliative care.. Continuing antibiotics. Stopped PSP medications as per neurology,as patient has been more awake. Patient appears to have much more cognition and understanding of her medical conditions since admission. I do not expect her mental state to improve much more than her current state. (2) Aspiration pneumonia: Completed 7 day regimen on IV Zosyn, suspect she will get recurrent pneumonia once this is finished. will hold further antibiotics as patient will be on comfort measures Duonebs every 2 hours when necessary. See dysphagia below. (3) Dysphagia: Profound oropharyngeal dysphagia on video swallow to all liquids secondary to pseudobulbar palsy (see below). Appreciate neurology review. Prior diagnosis of aggressive supranuclear palsy however no gaze abnormalities on exam here off medication. 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 Appreciate neurology review of her current medical regimen. Weaning off and re-evaluating. (5) Hypoxia: Aim O2 sats > 94%. Secondary to chronic aspiration as above. (6) Hypothermia: Recurrent hypothermia - suspect secondary to infection. Although possibly dysregulation related to progressive supranuclear palsy. TSH WNL, continue home dose levothyroxine through [facility]. Cortisol 10.5 (7) Chronic kidney disease (CKD) stage G4/A1, severely decreased glomerular filtration rate (GFR) between 15-29 mL/min/1.73 square meter and albuminuria creatinine ratio less than 30 mg/g: At baseline but trending up, suspected dehydration given history. See discussion below regarding heart failure. (8) Hypothyroidism (acquired): Continue PO levothyroxine to be crushed down [facility] NG (9) CAD (coronary artery disease), [place] coronary artery: Status post four-vessel CABG. Not on antiplatelets due to previous GI bleed. No BB or ACEi/ARB due to orthostatic hypotension. Continue to hold atorvastatin as noncritical medication pending goals of care discussion. (10) Fecal retention: Resolved with MiraLAX dosing. Now having diarrhea on tube feeds. We will continue to monitor. (11) Central sleep apnea: Noted from prior documentation. . (12) Anemia: Likely secondary to CKD. Review [facility] records show erythropoietin prescribed by her kiln placer. Suspect this is the cause of her elevated MCV. Status post x1 unit PRBC transfusion. Hgb stable. I do not suspect an acute bleed. (13) Severe protein-calorie malnutrition: Appreciate dietary review. (14) Urinary retention: Suspect secondary to fecal retention, although this is now resolved. family and patient requested to remove norman catheter. (15) Chronic systolic right heart failure: Appreciate cardiology management of fluid status. Discussed with Dr. De Jesus. Will hold further diuretics at this time as Lasix has caused her creatinine to increase. (16) DVT prophylaxis: Heparin 5000 units SQ BID Continue SCDs Total Time Total Time Spent Total Time Spent (In Minutes): 35 Total Time Includes: Examination of the Patient, Discharge Planning and Medication Reconciliation Discharge Plan Discharge Items Patient Disposition: Hospice - Home Reason For Visit: ACUTE RESPIRATORY FAILURE W/ HYPOXIA,ASP PNEUMONIA Discharge Diagnosis: Aspiration pneumonia Severe oropharyngeal dysphagia Pseudobulbar palsy Activity: Resume your previous activity Activity Comment: will be discharged on home hospice Non-emergency contact: Primary Care Provider Call non-emergency contact if: you have any medication questions Follow-up/Referrals: Earnest Meyer MD [Primary Care Provider] - Diet: Carb Consistent or DM2 Diet Texture: Pureed (blended smooth) Addtl Attending Provider Instructions: will be discharged on home hospice. Pending Studies at Discharge: No Stand-Alone Forms: My [employer] Medications and DC Order Prescriptions: New morphine concentrate 20 mg/mL syringe 5 mg SL Q1H PRN (Reason: pain/ SOB) Qty: 30 RF: 0 lorazepam 0.5 mg tablet 0.5 mg PO .q4-6h PRN (Reason: anxiety/sob) Qty: 30 RF: 0 prochlorperazine maleate 10 mg tablet 10 mg PO Q8H PRN (Reason: nausea and vomiting) Qty: 10 RF: 0 Continued Centrum Chewables 8 mg-400 mcg- 10 mcg tablet,chewable 1 tab PO DAILY Qty: 30 RF: 0 nitroglycerin [Nitrostat] 0.4 mg tablet, sublingual 0.4 mg SL Q5M PRN (Reason: chest pain x3 doses, if no relief call 911) Qty: 25 RF: 0 acetaminophen [Tylenol] 325 mg tablet 650 mg PO Q4H PRN (Reason: pain) Qty: 100 RF: 0 sennosides-docusate sodium [Senna-S] 8.6-50 mg tablet 2 tab PO BID PRN (Reason: constipation) Qty: 120 RF: 5 albuterol sulfate 90 mcg/actuation HFA aerosol inhaler 2 puffs INH Q4H PRN (Reason: shortness of breath or wheezing) Qty: 18 RF: 5 ipratropium-albuterol 0.5 mg-3 mg(2.5 mg base)/3 mL solution for nebulization 3 ml INH Q6H PRN (Reason: shortness of breath or wheezing) Qty: 180 RF: 5 ondansetron 4 mg tablet,disintegrating 4 mg PO Q8H PRN (Reason: nausea and vomiting) Qty: 30 RF: 0 cholecalciferol (vitamin D3) 5,000 unit capsule 5,000 units PO DAILY Qty: 30 RF: 5 torsemide 20 mg Tablet 40 mg PO DAILY RF: 0 levothyroxine 125 mcg Tablet 125 mcg PO DAILY RF: 0 docusate sodium 100 mg Capsule 100 mg PO DAILY RF: 0 Culturelle 10 billion cell capsule 1 cap PO DAILY RF: 0 scopolamine base [Transderm-Scop] 1 mg over 3 days patch 3 day 1 patch TD Q72H MDD 1 PRN (Reason: secretions) Qty: 10 RF: 5 Discontinued atorvastatin 20 mg tablet 20 mg PO QPM Qty: 90 RF: 3 Discharge Orders: Discharge Order (Routine); Ordered 05/13/19 Ordered By: Fernando Harrison Admission Data Admit Date/Time: 05/05/19 20:34 Attending Provider: Fernando Harrison Admit Provider: Mark Amaya Primary Care Provider: Earnest Meyer Other Providers: [place] ; Josy Rodriguez ; Mark Amaya ; Cheikh Boo ; Jenn Mckee ; Daxa Degroot ; Darell Mathew ; Lisandro De Jesus Other Interventions: Discharge Summary Assessment (RN) Last Done: 05/13/19 15:12 DC Date/Time DO NOT enter until pt leaves facility: 05/13/19 15:52
== END 2019-05-13 15:52 | disposition hospice, home (50) | DRG 177 ==
LOC: ED 15:43 → SUATTDRO 20:34 → 2S 20:34 → 4W 05-11 13:28